=== PATIENT | female | born 1960 | race Caucasian/White ===

== ENCOUNTER → 2019-12-04 07:52 | Outpatient (CLI) | payer BC, SELFPAY ==
[2019-10-27 08:46] VITALS: BMI 27.6
--- NOTE | 2019-12-04 07:55 | RAD_ITS ---
STUDY: X-RAY CHEST REASON FOR EXAM: Female, 59 years old. Left breast CA with left mastectomy and chemo 2 1/2 years ago -- non productive cough since chemo TECHNIQUE: PA and lateral views of the chest. COMPARISON: Comparison is made with prior study dated March 11, 2017. FINDINGS: There now is evidence of a 6.3 cm x 6.5 cm well-defined rounded mass in the right lower lobe. A neoplastic process should be ruled out. There is no demonstrated pleural abnormality. Normal size heart. Normal mediastinum and don. Normal visualized pulmonary arteries. Normal visualized aortic arch and descending thoracic aorta. There are diffuse degenerative changes of the visualized thoracic spine. Normal visualized ribs, clavicles, and shoulders. There is no demonstrated abnormality of the visualized soft tissue structures of the upper abdomen. RAD/Chest PA and Lateral IMPRESSION: There is a new 6.3 cm x 6.5 cm well-defined rounded mass in the right lower lobe. A neoplastic process should be ruled out. Correlation with a CT scan is recommended. Electronically Signed: Chuy Crespo, at 8:53 EST , Service support ,
== END ==
PROVIDERS: Family Provider Family Medicine; PCP Family Medicine; Referring Provider Nurse Practitioner; Visit Provider Nurse Practitioner
DX: R05 Cough (principal); R91.8 Other nonspecific abnormal finding of lung field; Z90.12 Acquired absence of left breast and nipple; Z85.3 Personal history of malignant neoplasm of breast
CPT/HCPCS: 71046

== ENCOUNTER → 2019-12-06 07:41 | Outpatient (CLI) | payer BC, SELFPAY ==
[2019-10-27 08:46] VITALS: BMI 27.6
--- NOTE | 2019-12-06 07:43 | CT_ITS ---
STUDY: CT CHEST WITH CONTRAST REASON FOR EXAM: Female, 59 years old. LEFT BREAST CANCER FOLLOW-UP, COUGH X 2 YRS, HX LEFT BREAST CANCER W/ MASTECTOMY RADIATION DOSAGE (If Supplied By Facility): CTDIvol = ( 10.44 ) mGy, DLP = ( 782.29 ) mGycm TECHNIQUE: Transaxial imaging was performed following intravenous administration of Oral and amp; IV Readi-CAT and amp; 100mL Isovue-300. Multiplanar coronal and sagittal images were reformatted. Individualized dose optimization techniques were used for this CT. COMPARISON: Comparison made with prior chest radiograph dated December 04, 2019. FINDINGS: The patient is status post left mastectomy. Surgical clips are seen in the left axillary region. Small bilateral axillary lymph nodes. There is a 5.4 cm x 5.8 cm x 6 cm mass in the right lower lobe. Mild degree of increased markings are seen along its inferior and lateral margins. A neoplastic process should be ruled out. The left lung is clear. There is no demonstrated pleural abnormality. Normal heart and pericardium. Normal mediastinum. Normal hilar regions. Normal enhanced pulmonary arteries. Normal aorta arch and descending thoracic aorta. There are multi-level degenerative changes of the thoracic spine. Small hiatal hernia. CT/Chest WITH Contrast IMPRESSION: 5.4 cm x 5.8 cm x 6 cm mass in the right lower lobe. A neoplastic process should be ruled out. Electronically Signed: Chuy Crespo, at 9:57 EST , Service support ,
--- NOTE | 2019-12-06 07:43 | CT_ITS ---
STUDY: CT ABDOMEN AND PELVIS WITH CONTRAST REASON FOR EXAM: Female, 59 years old. BREAST CANCER FOLLOW UP, HX LEFT BREAST CANCER W/ LEFT MASTECTOMY RADIATION DOSAGE (If Supplied By Facility): CTDIvol = ( 10.44 ) mGy, DLP = ( 782.29 ) mGycm TECHNIQUE: Transaxial images were obtained from the dome of the diaphragm to the symphysis pubis without oral contrast. Oral and amp; IV Readi-CAT and amp; 100mL Isovue-300 was administered. Sagittal and coronal images were reconstructed. Individualized dose optimization techniques were used for this CT. COMPARISON: None. FINDINGS: There is a 5 cm x 4.8 cm x 6 cm mass in the right lower lobe with increased markings at the right lung base suggestive of atelectasis. The visualized portions of the heart are within normal limits. Normal liver. Normal gallbladder and extrahepatic biliary system. Normal spleen. Normal pancreas. Normal bilateral adrenal glands. Normal right kidney. Normal left kidney. There is a small hiatal hernia. Normal small intestine. Normal colon. The appendix is visualized and appears normal. Normal abdominal aorta. Normal inferior vena cava. Normal retroperitoneum. Normal urinary bladder. There is a small umbilical hernia containing fat. Normal osseous structures. CT/Abdomen/Pelvis WITH Contrast IMPRESSION: Right lower lobe mass. Electronically Signed: Chuy Crespo, at 9:59 EST , Service support ,
[2019-12-06 07:55] LABS: CREATININE FINGERSTICK 0.8 mg/dL (0.55-1.02)
== END ==
PROVIDERS: Family Provider Family Medicine; PCP Family Medicine; Referring Provider Internal Medicine Hematology & Oncology; Visit Provider Internal Medicine Hematology & Oncology
DX: C50.512 Malignant neoplasm of lower-outer quadrant of left female breast (principal); Z17.0 Estrogen receptor positive status [ER+]; R91.8 Other nonspecific abnormal finding of lung field; R05 Cough
CPT/HCPCS: 71260; 74177; Q9967

== ENCOUNTER → 2019-12-11 07:32 | Outpatient (CLI) | payer BC, SELFPAY ==
[2019-10-27 08:46] VITALS: BMI 27.6
--- NOTE | 2019-12-11 07:33 | NM_ITS ---
CLINICAL: 59-year-old female with reported history of primary breast carcinoma. WHOLE BODY 99m Tc MDP RADIONUCLIDE BONE SCINTIGRAPHY COMPARISON: CT of the chest, abdomen and pelvis reports 12/06/2019 FINDINGS: Following the intravenous administration of approximately 25.0 mCi of 99m Tc MDP, whole body bone images reveal: 1. Increased radiopharmaceutical concentration is identified in the mid cervical spine posteriorly on the left and right, acromioclavicular compartment of the right shoulder, sternoclavicular compartments of both shoulders, bilateral wrists articulations, both knees, the right ankle. 2. The remaining skeletal structures are scintigraphically unremarkable with normal-appearing renal images and urinary bladder activity identified. NM/Bone Scan Whole Body IMPRESSION: 1. The increase in radiopharmaceutical concentration identified in the cervical spine, right and left shoulders, knees bilaterally and right ankle is commensurate with degenerative arthritis. 2. There is no definitive typical scintigraphic evidence of skeletal metastatic disease on the current examination. Electronically Signed: Etienne Su DO at 23:08 EST Tel , Service support ,
== END ==
PROVIDERS: Family Provider Family Medicine; PCP Family Medicine; Referring Provider Internal Medicine Hematology & Oncology; Visit Provider Internal Medicine Hematology & Oncology
DX: C50.512 Malignant neoplasm of lower-outer quadrant of left female breast (principal); Z17.0 Estrogen receptor positive status [ER+]; R91.8 Other nonspecific abnormal finding of lung field; R05 Cough
CPT/HCPCS: 78306

== ENCOUNTER → 2019-12-12 08:29 | Outpatient (CLI) | payer BC, SELFPAY ==
[2019-10-27 08:46] VITALS: BMI 27.6
[2019-12-12] VITALS (11 sets, daily range): BP systolic 102–137; BP diastolic 51–77; PULSE 66–82; RESP 12–18; TEMP 36.7; O2SAT 16–99; BMI 25.4
--- NOTE | 2019-12-12 | ASPIGT_PTH ---
PATIENT: ERICK TELLO LOC: CT U#:[id number] AGE/SX: 64/F ROOM: RE12/12/[address]: Dr. Shaji Almonte DO : 1960 BED: DIS: SPEC #: [id number] RECD: 12/12/19 13:13 STATUS: ZEE RELiborio #: [id number] JAYCE: 12/12/19 00:[address]: Shaji Almonte DEPT: SURGICAL PATHOLOGY RECD BY: Dillon Mcnair ENTERED: 12/12/19 13:13 SP TYPE: ASP RAD OTHR DR: Dr. Lawrence Ramirez MD Tissues: Lung, NOS Procedures: FNA Specimen Adequacy Special Stain Group II Surgery Specimen Level IV Imprint (control) HEADER OPERATION: CT-guided right lung mass biopsy PRE-OP DIAGNOSIS: RLL mass TISSUE SUBMITTED: Right lung mass, CT-guided core biopsy MICROSCOPIC DIAGNOSIS Right lower lobe lung mass, CT-guided needle core biopsy: Positive for malignant cells, non-small cell carcinoma with squamoid features. See comment. AM:zak 12/13/19 COMMENT The specimen is evaluated at the time of biopsy by Dr. Paredes. Immediate Evaluation = Malignant cells present. Extensive necrosis is also noted. Immunohistochemistry ([id number]) supports the above diagnosis and is consistent with patients history of metaplastic breast carcinoma. Extensive tumor necrosis is identified. Reference is made to the patient's left breast, ultrasound-guided needle core biopsy ([id number]) in which invasive, nuclear grade 3, ductal carcinoma was identified. 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 This case was discussed with Dr. Almonte 12/15/[address] Muller. Case has been reviewed in consultation with Dr. Paredes who concurs with the above diagnosis. IDC:SJ MICROSCOPIC DESCRIPTION Slides are reviewed. GROSS DESCRIPTION Received in fixative is one container labeled with the patient's name and designated right lung, CT-guided core biopsy. The specimen consists of multiple irregular fragments of ruiz soft tissue that in aggregate measure 1 x 0.1 x <0.1 cm. The specimen is totally submitted in one cassette. Four touch imprints are prepared at the time of core biopsy. / SJ:rg 12/12/19 TC:0 [facility]: [id number], [id number] ADDENDUM ADDENDUM ADDENDUM ADDENDUM ADDENDUM ADDENDUM ADDENDUM 02/05/2020 09:50 ADDENDUM 02/05/2020 09:50 ADDENDUM 02/05/2020 09:50 ADDENDUM 02/05/2020 09:50 ADDENDUM 02/05/2020 09:50 PD-L1 (KEYTRUDA) IMMUNOHISTOCHEMISTRY ANALYSIS FROM [facility] INTERPRETATION: No expression Tumor proportion score: <1% Please see complete report in e-chart or EMR for complete details
--- NOTE | 2019-12-12 | IMM_PTH ---
PATIENT: ERICK TELLO LOC: CT U#:[id number] AGE/SX: 64/F ROOM: RE12/12/[address]: Dr. Shaji Almonte DO : 1960 BED: DIS: SPEC #: [id number] RECD: 12/13/19 15:14 STATUS: SOUStacie REQ #: [id number] JAYCE: 12/12/19 00:[address]: Shaji Almonte DEPT: IMMUNOHISTOCHEMISTRY RECD BY: Lisa Borjas ENTERED: 12/13/19 15:16 SP TYPE: IMMUNO OTHR DR: Dr. Lawrence Ramirez MD Tissues: Lung, NOS Procedures: Synapto (add) RCC (add) Thyroglobulin (add) MSH2 (add) MLH-1 (add) MSH6 (add) Anti-PMS2 (add) NAPSIN A (add) CA-125 (add) CD56 (add) CHROMO (add) CK14 (add) CK20 (add) CK5-6 (add) CK7 (add) CK8 (add) GONZALEZ-2 (add) HER2 KRISTIE (add) KI-67 (add) MAMM (add) P53 (add) WV (add) TTF1 (add) Pankeratin (add) GATA3 (add) P40 (add) ER (initial) NSE (add) S-100 (add) PHYSICIAN & INSTITUTION [place] [id number] SPECIMEN INFORMATION: Tissue Source: Right lower lobe lung mass Clinical Info: Right lower lobe lung mass Specimen Number: [id number] CPT code: 68328, 68624 x28 METHODOLOGY: Deparaffinized sections of prefer/formalin-fixed tissue or PAP/DQ stained slides are incubated with monoclonal/polyclonal antibodies/oligonucleotide probes. Localization is made via biotin free immunoperoxidase method. Appropriate controls are performed and reacted as expected. Results on target cell population are indicated in the following table: RESULTS: ANTIBODY / CLONE RESULT ER (6F11) negative WV (1E2) positive, dim, focal AE1-3 (AE1/AE3/PCK26) positive CK7 (OV-TL12/30) positive CK8 (18ygkpM34) positive CK20 (KS20.8) negative GONZALEZ-2 (SP21) negative S-100 (4C4.9) negative CD56 (123C3.D5) negative Chromo (LK2H10) negative Synapto (polyclonal) negative NSE Neuron Specific Enolase negative TTF-1 (8G7G3/1) negative Napsin A (Rabbit Polyclonal) negative RCC (PN-15) negative Thyro (2H11+6E1) negative CK5-6 (D5 & 1684) positive CK14 (LL002) positive P40 (BC28) positive, focal CA125 (OC125) negative P53 (DO-7) positive Ki-67 (30-9) positive, high GATA3 (L50-823) negative Mammaglobin (31A5) negative These tests were developed and their performance characteristics determined by [facility]. They may not have been cleared or approved by the U.S. Food and Drug Administration. The FDA has determined that such clearance or approval is not necessary. The above immunohistochemical/dualISH markers are ordered and reviewed by the Pathologist. INTERPRETATION: Right lower lobe lung mass, CT-guided biopsy: Metastatic non-small carcinoma with squamoid features. 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 Clinical correlation is necessary. Case was discussed with Dr. Almonte on 12/15/[address] Muller. Case has been reviewed in consultation with Dr. Paredes who concurs with the above diagnosis. IDC:SJ ADDENDUM ADDENDUM ADDENDUM ADDENDUM ADDENDUM ADDENDUM ADDENDUM ADDENDUM ADDENDUM ADDENDUM ADDENDUM 01/03/2020 10:31 ADDENDUM 01/03/2020 10:31 ADDENDUM 01/03/2020 10:31 ADDENDUM 01/03/2020 10:31 ADDENDUM 01/03/2020 10:31 ADDENDUM 01/12/2020 12:40 ANTIBODY / CLONE RESULT MLH-1 (M1) positive MSH2 (25D12) positive MSH6 (44) positive PMS2 (UPB0499) positive Result of Microsatellite Instability Study: Negative (no loss of mismatch protein; no microsatellite instability detected). AM:zak 01/03/20 ANTIBODY / CLONE RESULT Her-2neu (CB11) negative (0) The above immunohistochemical/dualISH marker is ordered by Dr. Almonte and reviewed by the pathologist. SJ:zak 01/12/20
--- NOTE | 2019-12-12 08:39 | CT_ITS ---
PROCEDURE: CT GUIDED CORE NEEDLE BIOPSY OF A right lower lobe LUNG LESION INDICATION: Female, 59 years old. RT LUNG BX PHYSICIAN: Dr. Zak Juarez CONSENT: Written informed consent was obtained having explained the risks, benefits and alternatives in detail with the patient who accepted the risks and agreed to proceed. Laboratory review and clinical assessment was performed. CONSCIOUS SEDATION PROTOCOL: The Drugs used were: 2 mg Versed, IV., and 50 mcg Fentanyl, IV. The sedation time was: 22 minutes. Conscious sedation was started at 9:28 AM and terminated at 9:50 AM. The conscious sedation protocol was independently monitored. RADIATION DOSAGE (If Supplied By Facility): CTDIvol = ( 13.5 ) mGy, DLP = ( 182.66 ) mGycm Individualized dose optimization techniques were used for this CT. TECHNIQUE: The patient was placed in the prone position. A noncontrast CT was performed to localize the lesion in the right lower lobe . The skin surface was prepped and draped in a sterile fashion. 1% lidocaine was used for local anesthesia. Using CT guidance, a 20-gauge coaxial biopsy device was advanced to the periphery of the lesion. A total of 5 core specimens were obtained. The specimens were placed in a formalin solution. A post procedure CT demonstrated no adverse sequelae or pneumothorax. The patient tolerated the procedure well without adverse event. A negative biopsy does not exclude malignancy. Further imaging or clinical followup based on patient condition and degree of clinical suspicion for malignancy. Suggest rebiopsy, if biopsy results do not match with clinical scenario. CT/Biopsy/Inj or Needle Placement IMPRESSION: 1. CT directed core needle biopsy of the right lower lobe pulmonary nodule using CT image guidance with image documentation as described. Pathology results are pending. 2. Conscious Sedation protocol utilized with independent monitoring. Electronically Signed: Chuy Crespo, at 10:42 EST , Service support ,
[2019-12-12 08:43] LABS: Platelet Count 256 K/mm3 (150-450)
[2019-12-12 08:53] LABS: International Normalized Ratio 0.9; Prothrombin Time (Protime)PT. 12.2 SECONDS (11.7-14.9)
[2019-12-12] MEDS: 0.9% Saline Lock 10 ML Syringe IV (09:28)
[2019-12-12] MEDS: Midazolam 2 MG/2 ML Syringe IV (09:28)
[2019-12-12] MEDS: fentaNYL 100 MCG/2 ML Ampul IV (09:30)
--- NOTE | 2019-12-12 09:55 | RAD_ITS ---
STUDY: X-RAY CHEST REASON FOR EXAM: Female, 59 years old. POST LUNG BIOPSY TECHNIQUE: AP inspiration expiration views. COMPARISON: Comparison is made with prior study dated December 04, 2019. FINDINGS: This is an immediate post right lung biopsy radiograph. There is no evidence of pneumothorax. RAD/Chest Insp/Exp 2 View IMPRESSION: No evidence of pneumothorax on the immediate post right lung biopsy radiograph. Electronically Signed: Chuy Crespo, at 10:50 EST , Service support ,
--- NOTE | 2019-12-12 11:50 | RAD_ITS ---
STUDY: X-RAY CHEST REASON FOR EXAM: Female, 59 years old. 2 HOUR POST LUNG BX, RIGHT SIDE TECHNIQUE: AP inspiration and expiration views. COMPARISON: Comparison is made with prior examination done earlier in the day. FINDINGS: No evidence of pneumothorax on the 2 hour delayed post right lung biopsy radiograph. Stable right lower lobe mass. RAD/Chest Insp/Exp 2 View IMPRESSION: No evidence of a pneumothorax on the two-hour delayed radiograph. Electronically Signed: Chuy Crespo, at 12:19 EST , Service support ,
== END ==
PROVIDERS: PCP Family Medicine; Referring Provider Internal Medicine Hematology & Oncology; Visit Provider Internal Medicine Hematology & Oncology
DX: C34.31 Malignant neoplasm of lower lobe, right bronchus or lung (principal); C50.512 Malignant neoplasm of lower-outer quadrant of left female breast; Z17.0 Estrogen receptor positive status [ER+]; Z90.12 Acquired absence of left breast and nipple
CPT/HCPCS: 32405; 36415; 71046; 77012; 85049; 85610; 88172; 88305; 88313; 88341; 88342; 99156; 99157; J7040; A4216

== ENCOUNTER → 2019-12-19 06:44 | Outpatient (CLI) | payer BC, SELFPAY ==
[2019-12-12 08:47] VITALS: BMI 25.4
--- NOTE | 2019-12-19 06:52 | MRI_ITS ---
STUDY: MRI BRAIN WITH AND WITHOUT CONTRAST REASON FOR EXAM: Female, 59 years old. Invasive, metastic breast CA recurrence. Staging. No patient complaints TECHNIQUE: Standardized multiplanar fat and water weighted pulse sequences were obtained. Pt received 12ml Dotarem via IV was administered for the contrast portion of the examination. COMPARISON: None. FINDINGS: Normal size of the ventricles and extra-axial spaces for the patient''s age. Normal white matter tracts of the supratentorial brain. There is no evidence for recent intracranial ischemia or other cause of cytotoxic edema on diffusion weighted imaging (DWI). Normal T2* images of the brain without demonstrated susceptibility artifact. There is no demonstrated hemosiderin stain. Normal bilateral basal ganglia. Normal thalami. There is no extra-axial fluid accumulation. Normal flow voids within the major intracranial circulation suggesting patency by spin echo criteria. Normal venous enhancement. There is no enhancing intra-axial or extra-axial abnormality. Normal sella turcica, pituitary gland, infundibular stalk, optic chiasm and hypothalamus. Normal tectal plate and pineal gland. Normal midbrain, suzie and medulla. Normal cerebellum. Normal basal cisterns. Normal bilateral temporal bones. Normal bilateral internal auditory canals. No demonstrated orbital abnormality, within the constraints of a routine brain study. Normal visualized paranasal sinuses. Normal calvarium and skull base. Normal visualized soft tissue structures. Normal visualized upper cervical spine. MRI/Brain W/WO Contrast IMPRESSION: Normal unenhanced and enhanced MRI of the brain. No MR evidence of metastatic disease. Electronically Signed: Etienne Gomez MD at 8:53 EST Tel , Service support ,
== END ==
PROVIDERS: PCP Family Medicine; Referring Provider Internal Medicine Hematology & Oncology; Visit Provider Internal Medicine Hematology & Oncology
DX: C50.512 Malignant neoplasm of lower-outer quadrant of left female breast (principal); Z17.0 Estrogen receptor positive status [ER+]; R91.8 Other nonspecific abnormal finding of lung field
CPT/HCPCS: 70553; A9575

== ENCOUNTER → 2019-12-25 08:57 | Outpatient (CLI) | payer BC, SELFPAY ==
[2019-12-12 08:47] VITALS: BMI 25.4
--- NOTE | 2019-12-25 09:09 | PET_ITS ---
EXAMINATION: FDG PET CT INDICATIONS: A 59-year-old female with history of carcinoma of the breast presenting for restaging examination. COMPARISON EXAMINATION: Whole body bone scintigraphy report dated 12/11/19, CT of the chest report dated 12/06/19, CT of the abdomen and pelvis report dated 12/06/19. INDEX LESION SIZE SUV INTERPRETATION Right lower hemithorax pulmonary parenchyma-right lower lobe, heterogeneous 6.7 cm x 5.9 cm (frame 177) 5.4 Fulfills quantitative criteria for viable neoplasm Left posterior ilium, right mid humeral diaphysis 5.7 Fulfills quantitative criteria for viable osseous neoplasm TECHNIQUE: Following the intravenous administration of 15.74 mCi of F-18 deoxyglucose via the right antecubital fossa, multiplanar image acquisitions of the neck, chest, abdomen and pelvis to level of mid thigh, obtained at one hour post radiopharmaceutical administration contemporaneously interpreted with the current CT of the neck, chest, abdomen and pelvis to level of mid thigh, dated 12/25/19 via coregistration and whole body bone scintigraphy report dated 12/11/19, CT of the chest report dated 12/06/19, CT of the abdomen and pelvis report dated 12/06/19 reveal: SERUM GLUCOSE LEVEL: 87 mg/dl. HEIGHT: 61 inches. WEIGHT: 130 lbs. FINDINGS: 1. Heterogeneous increased glucose metabolism is defined in the right lower posterior lung with a component of central photopenia. The calculated maximum standard uptake value is 5.4. The maximal axial diameter of the corresponding parenchymal density-mass on review of CT of the chest dated 12/25/19 is 6.7 cm (transverse) x 5.9 cm (AP). 2. Focal increased glucose concentration is observed in the left posterior ilium and right mid humeral diaphysis generating a calculated maximum standard uptake value of 5.7. 3. Normal physiologic distribution of the radiopharmaceutical is apparent in the hepatic (2.5) and splenic parenchyma, both renal units, bladder and visualized intestinal tract. There is uniform distribution of the radiopharmaceutical concentration defined in the visualized cerebellar hemispheres and cerebral cortical structures.? Diffuse intestinal tract activity is noted throughout all four quadrants of the abdominal-pelvic retroperitoneum, mesentery consistent with normal physiologic distribution of the radiopharmaceutical. Subtle increased radiopharmaceutical concentration is observed in the right upper anterolateral chest wall-second rib rendering a calculated standard uptake value of 1.7. Quantitative criteria for viable osseous neoplasm are not fulfilled. Facilitated uptake is noted in the ascending and descending thoracic aorta commensurate with activated leukocytes associated with atherosclerotic plaque formation. (Juan frost al, Clinical Nuclear Medicine 29:93, 2004). Pertinent CT findings are as follows. CHEST: The left breast is surgically absent. There are no additional parenchymal densities-nodules defined in the right-left hemithorax demonstrating discernible increased glucose metabolism. Surgical clips are visualized in the left axilla. Right and left axillary soft tissue densities are ametabolic. ABDOMEN AND PELVIS: Colonic diverticulosis is defined. Subcentimeter right and left inguinal soft tissue is non-glucose avid. Cystic change appears evident at the level of the right adnexa without evidence of increased FDG uptake. SKELETAL: Degenerative changes defined in the cervical, thoracic and lumbar spine demonstrate no evidence for glucose hypermetabolism. Diffuse demineralization is demonstrated. PET/PET/CT Tumor Base -Thigh Init IMPRESSION: 1. ABNORMAL EXAMINATION INDICATIVE OF MALIGNANT-IDENTIFIABLE METASTATIC NEOPLASM. 2. Increased glucose concentration observed in the right lower hemithorax pulmonary parenchyma, right lower lobe fulfills quantitative criteria for viable neoplasm. (Chin et al, Annals of Internal Medicine, 138:724, 2003). 3. Facilitated fluorine-labeled glucose uptake noted in the left posterior ilium and right mid humeral diaphysis fulfills quantitative criteria for viable osseous neoplasm. (Margret, Clinical Nuclear Medicine 29:161, 2004). Electronic Signature Etienne Su D.O. Electronically Signed: Etienne Su DO at 8:34 EST Tel , Service support ,
== END ==
PROVIDERS: PCP Family Medicine; Referring Provider Internal Medicine Hematology & Oncology; Visit Provider Internal Medicine Hematology & Oncology
DX: C50.512 Malignant neoplasm of lower-outer quadrant of left female breast (principal); Z17.0 Estrogen receptor positive status [ER+]; R91.8 Other nonspecific abnormal finding of lung field
CPT/HCPCS: 78815; A9552

== ENCOUNTER → 2020-03-11 12:46 | Outpatient (CLI) | payer BC, SELFPAY ==
[2019-12-12 08:47] VITALS: BMI 25.4
--- NOTE | 2020-03-11 12:49 | CT_ITS ---
STUDY: CT CHEST WITH CONTRAST REASON FOR EXAM: Female, 59 years old. CHEMO CHECK, RT LUNG MASS, HX-LT BREAST CA WITH LT MASTECTOMY, CHEMO AND RAD TX, LAST CHEMO 1.5 WKS AGO, PARTIAL THYROIDECTOMY FOR GOITER RADIATION DOSAGE (If Supplied By Facility): CTDIvol = ( 7.27 ) mGy, DLP = ( 243.77 ) mGycm TECHNIQUE: Transaxial imaging was performed following intravenous administration of IV 100mL Isovue-300. Multiplanar coronal and sagittal images were reformatted. Individualized dose optimization techniques were used for this CT. COMPARISON: Comparison is made with prior examination dated December 06, 2019. FINDINGS: The patient is status post left thyroidectomy. The patient is status post left mastectomy with left breast reconstruction and prosthesis. There is evidence of a 4.6 cm x 5.3 cm x 5.4 cm mass in the anterior aspect of the right lower lobe abutting the right major fissure anteriorly. This has decreased slightly in size as compared to prior study. There is no demonstrated pleural abnormality. Normal heart and pericardium. Normal mediastinum. Normal hilar regions. Normal enhanced pulmonary arteries. Normal aorta arch and descending thoracic aorta. There are mild degenerative changes of the thoracic spine. There is no demonstrated abnormality of the visualized upper abdomen. CT/Chest WITH Contrast IMPRESSION: Since prior study, there has been slight decrease in size of the right lower lobe pulmonary mass. Status post left mastectomy with left breast prosthesis reconstruction. Electronically Signed: Chuy Crespo, at 13:59 EDT , Service support ,
[2020-03-11 13:20] LABS: CREATININE FINGERSTICK 0.6 mg/dL (0.55-1.02); EGFR FINGERSTICK > 60.0000 mL/min (>60)
== END ==
PROVIDERS: PCP Family Medicine; Referring Provider Internal Medicine Hematology & Oncology; Visit Provider Internal Medicine Hematology & Oncology
DX: C50.512 Malignant neoplasm of lower-outer quadrant of left female breast (principal); Z17.0 Estrogen receptor positive status [ER+]; C78.01 Secondary malignant neoplasm of right lung; C79.51 Secondary malignant neoplasm of bone
CPT/HCPCS: 71260; Q9967

== ENCOUNTER 2020-05-17 10:53 | Emergency (ER) | payer BC, SELFPAY ==
[2019-12-12 08:47] VITALS: BMI 25.4
[2020-05-17 10:54] VITALS: BP 123/68; PULSE 94; PULSE 95; RESP 17; TEMP 36.6; O2SAT 95; O2SAT 96; BMI 26.4
--- NOTE | 2020-05-17 11:25 | RAD_ITS ---
STUDY: X-RAY - RIGHT KNEE REASON FOR EXAM: Female, 59 years old. RIGHT KNEE PAIN. TECHNIQUE: 4 view(s) of the knee. COMPARISON: None. FINDINGS: Normal visualized distal femur. Normal visualized proximal tibia and fibula. Normal proximal tibiofibular articulation. Normal medial femorotibial compartment. Normal lateral femorotibial compartment. Normal patellofemoral articulation. The soft tissue structures are unremarkable. RAD/Knee 4 or More Views IMPRESSION: Normal x-ray examination of the knee. Electronically Signed: Dayday Agosto MD at 11:44 EDT , Service support ,
--- NOTE | 2020-05-17 11:53 | VDLE_ITS ---
Reason For Study: pain RIGHT GSV is normal. CFV is compressible, spontaneous, phasic, competent and demonstrates normal augmentation. FV is compressible, spontaneous, phasic, competent and demonstrates normal augmentation. POP V is compressible, spontaneous, phasic, competent and demonstrates normal augmentation. T/P Trunk is compressible. PTV is compressible. RT PerV is compressible. Procedure Exam performed portable in ED. The exam was abbreviated due to the COVID 19 protocol. The exam was diagnostic. A preliminary report was called and/or faxed to Dr. Whitley. Interpretation Summary There is no evidence of right lower extremity deep vein thrombosis. Right great saphenous vein appears patent and compressible segmentally. Abreviated Covid-19 protocol Ordering Physician: Shaji Whitley Performed By: Donaldo Mcduffie RVT
--- NOTE | 2020-05-17 12:15 | ED.VIS.GEN ---
History of Present Illness Chief Complaint: Lower Extremity Injury Narrative: Presents with right knee pain, this is anterior and some posterior pain after a car ride she tells me she sat in an awkward position where she put her left foot over her right knee for prolonged period of time. She has minimal pain when she is laying down her most of her pain is when she stands on her knee. She has no calf pain no lower extremity edema she has no fever or chills. She is being treated with chemotherapy for metastatic breast cancer. She has no shortness of breath or chest pain. Past Medical History - Allergies and Home Meds Allergies/Adverse Reactions: Allergies No Known Allergies Allergy (Verified 05/17/20 10:53) Primary Care Physician: Lawrence Ramirez MD [Primary Care Provider] - Past Medical History: - - Metastatic breast cancer as above Smoking Status: Former smoker Review of Systems All systems negative except as indicated General: Denies: Chills, Fever Cardiovascular: Denies: Chest pain Respiratory: Denies: Dyspnea, Cough Gastrointestinal: Denies: Abdominal pain Musculoskeletal: Reports: - - Right knee pain as above Skin: Denies: Rash, Wounds Neurological: Denies: Headache, Weakness Hematologic: Denies: Easy bruising Physical Exam Vital Signs/Narrative: Vital Signs Temp Pulse Resp BP Pulse Ox 05/17/20 10:54 97.8 F 95 17 123/68 H 95 General: - - Patient is quite comfortable in bed she does not appear in any distress Head: Normocephalic Eyes: Perrl ENT: Moist mucous membranes Cardiovascular: Regular rate, Regular rhythm Respiratory: No distress, CTA bilaterally, Chest nontender Abdomen: Soft, Nontender Back: Nontender Extremities: - - Tenderness over the right knee region it is anterior there is a slight effusion clinically, there is no laxity on anterior posterior medial or lateral stressors. Exam is somewhat difficult since the patient does have quite a bit of pain when I manipulate the knee. She has a normal extensor mechanism. She has very slight popliteal tenderness. She has no calf pain or lower extremity edema no erythema, calor or signs of infection. Skin: Normal color, No rash Neurological: Normal Strength, Normal Sensation Diagnostic/Tx/Re-eval Right knee x-ray reviewed by me shows normal alignment. There is no fracture. No obvious effusion - Medical Decision Making Patient has an unremarkable x-ray on physical exam she does have a slight effusion however I cannot appreciated on the x-ray, I also did a DVT study which was negative, she has normal vitals she appears well she has no other systemic complaints and her complaint today is localized to the knee no further studies are needed I will discharge her with analgesia, she likely has a knee strain or sprain. If this continues she will need an MRI. ED Disposition - Plan for ED Patient: Disposition: Home or Assisted Living Diagnosis: Knee pain Instructions: ED Knee Pain [facility]O, ED Sprain Knee Prescriptions: Hydrocodone Bitart/Apap 5-325 [[place] 5MG-325MG] 1 tablet PO Q4H PRN PRN 2 Days #10 tablet PRN Reason: Pain Transmission Status: Received by [facility] Referrals: You Still DO [STAFF PHYSICIAN] - 3-5 Days
[2020-05-17 13:09] VITALS: BP 124/79; PULSE 68; RESP 15; O2SAT 99
== END 2020-05-17 13:10 | disposition home or self-care (01) ==
PROVIDERS: Emergency Provider Emergency Medicine; PCP Family Medicine
DX: M25.561 Pain in right knee (principal); C50.919 Malignant neoplasm of unspecified site of unspecified female breast; C79.9 Secondary malignant neoplasm of unspecified site; Z87.891 Personal history of nicotine dependence
CPT/HCPCS: 73564; 93971; 99283

== ENCOUNTER → 2020-06-03 16:36 | Outpatient (CLI) | payer BC, SELFPAY ==
[2019-12-12 08:47] VITALS: BMI 25.4
[2020-05-17 10:54] VITALS: BMI 26.4
--- NOTE | 2020-06-03 16:39 | CT_ITS ---
STUDY: CT CHEST WITH CONTRAST REASON FOR EXAM: Female, 59 years old. BREAST CA RADIATION DOSAGE (If Supplied By Facility): CTDIvol = ( 10.12 ) mGy, DLP = ( 322.77 ) mGycm TECHNIQUE: Transaxial imaging was performed following intravenous administration of Oral and amp; IV READII-CAT and amp; 100ML ISOVUE 300. Multiplanar coronal and sagittal images were reformatted. Individualized dose optimization techniques were used for this CT. COMPARISON: Comparison is made with prior study dated March 11, 2020. FINDINGS: The patient is status post left mastectomy with breast reconstruction. The patient also status post left thyroidectomy. Persistent 4.5 cm x 4.3 cm mass in the anterior aspect of the right lower lobe abutting the right major fissure anteriorly. This has decreased slightly as compared to prior study. There is no demonstrated pleural abnormality. Normal heart and pericardium. Normal mediastinum. Normal hilar regions. Normal enhanced pulmonary arteries. Normal aorta arch and descending thoracic aorta. There are mild degenerative changes of the thoracic spine. Diffuse fatty infiltration of the liver. CT/Chest WITH Contrast IMPRESSION: Persistent soft tissue mass in the anterior aspect of the right lower lobe abutting the mid right major fissure as described. The mass presently measures 4.5 cm by 4.3 cm. Electronically Signed: Chuy Crespo, at 11:10 EDT , Service support ,
--- NOTE | 2020-06-03 16:39 | CT_ITS ---
STUDY: CT ABDOMEN AND PELVIS WITH CONTRAST REASON FOR EXAM: Female, 59 years old. BREAST CA RADIATION DOSAGE (If Supplied By Facility): CTDIvol = ( 11.46 ) mGy, DLP = ( 518.90 ) mGycm TECHNIQUE: Transaxial images were obtained from the dome of the diaphragm to the symphysis pubis with oral contrast. Oral and amp; IV READII-CAT and amp; 100ML ISOVUE 300 was administered. Sagittal and coronal images were reconstructed. Individualized dose optimization techniques were used for this CT. COMPARISON: Comparison is made with prior study dated December 06, 2019. FINDINGS: 4.7 cm x 4.5 cm mass in the right lower lobe. Status post left mastectomy with left breast reconstruction. The visualized portions of the heart are within normal limits. There is decreased attenuation of the liver consistent with steatosis. Normal gallbladder and extrahepatic biliary system. Normal spleen. Normal pancreas. Normal bilateral adrenal glands. Normal right kidney. Normal left kidney. Normal visualized stomach. Normal small intestine. Normal colon. The appendix is visualized and appears normal. Normal abdominal aorta. Normal inferior vena cava. Normal retroperitoneum. Normal urinary bladder. There is a small umbilical hernia containing fat. Normal osseous structures. CT/Abdomen/Pelvis WITH Contrast IMPRESSION: Stable examination. Electronically Signed: Chuy Crespo, at 13:00 EDT , Service support ,
[2020-06-03 17:31] LABS: CREATININE FINGERSTICK 0.7 mg/dL (0.55-1.02); EGFR FINGERSTICK > 60.0000 mL/min (>60)
== END ==
PROVIDERS: PCP Family Medicine; Referring Provider Internal Medicine Hematology & Oncology; Visit Provider Internal Medicine Hematology & Oncology
DX: C50.512 Malignant neoplasm of lower-outer quadrant of left female breast (principal); Z17.1 Estrogen receptor negative status [ER-]; C78.01 Secondary malignant neoplasm of right lung; C79.51 Secondary malignant neoplasm of bone
CPT/HCPCS: 71260; 74177; Q9967

== ENCOUNTER → 2020-06-13 13:00 | Outpatient (CLI) | payer BC, SELFPAY ==
[2020-05-17 10:54] VITALS: BMI 26.4
--- NOTE | 2020-06-14 05:39 | SPIR ---
Spirometry PFT Testing Spirometry PFT Testing: COMPLETE PULMONARY FUNCTION TEST INTERPRETATION Brief HPI: Patient is a 59 year old female, currently under the care of Dr. Almonte, who presents to [facility] for complete pulmonary function tests secondary to diagnosis of cough. Respiratory therapist reports good effort and reproducible results. Interpretation: Forced expiration spirometry shows no large airways obstructive ventilatory defect with an FEV1 of 101% predicted. There is no significant bronchodilator response by strict ATS criteria. Spirograms are of good quality and plateau slowly, indicating slowly emptying areas of the lungs. The respiratory flow volume loop shows decreased expiratory flow rates at high lung volumes consistent with small airways obstruction. No previous pulmonary function tests were available for review. Impression: Normal spirometry with some stigmata of possible small airways disease. Could consider bronchoprovocation study if asthma is a consideration.
== END ==
PROVIDERS: PCP Family Medicine; Referring Provider Internal Medicine Hematology & Oncology; Visit Provider Internal Medicine Hematology & Oncology
DX: R06.2 Wheezing (principal); R05 Cough; C50.512 Malignant neoplasm of lower-outer quadrant of left female breast; Z17.0 Estrogen receptor positive status [ER+]; C78.01 Secondary malignant neoplasm of right lung
CPT/HCPCS: 94060

== ENCOUNTER → 2020-07-01 06:57 | Outpatient (CLI) | payer BC, SELFPAY ==
[2020-06-24 10:21] VITALS: BMI 26.2
--- NOTE | 2020-07-02 14:48 | PFT ---
INTRODUCTION: The patient is a 59-year-old female that presents for pulmonary function studies secondary to a diagnosis of chronic cough. Respiratory therapy reports good patient effort. Bronchodilators were used during testing. INTERPRETATION: Forced expiration spirometry demonstrates no evidence of a large airways obstructive ventilatory defect. There was no significant response to aerosolized bronchodilators. Spirograms are of good quality and plateau normally. Body plethysmography was performed and reveals lung volumes to be within normal limits. Diffusing capacity by single breath CO is also within normal limits. IMPRESSION: Grossly normal pulmonary function studies.
== END ==
PROVIDERS: PCP Family Medicine; Referring Provider Internal Medicine Critical Care Medicine; Visit Provider Internal Medicine Critical Care Medicine
DX: R05 Cough (principal)
CPT/HCPCS: 94060; 94726; 94729

== ENCOUNTER → 2020-08-06 | Outpatient (CLI) | payer BC, SELFPAY ==
[2020-06-24 10:21] VITALS: BMI 26.2
== END | disposition home or self-care (01) ==
LOC: LABSPEC 13:06
PROVIDERS: Referring Provider Family Medicine; Visit Provider Family Medicine
DX: Z03.818 Encounter for observation for suspected exposure to other biological agents ruled out (principal)
CPT/HCPCS: 87635; U0003

== ENCOUNTER → 2020-08-08 | Outpatient (CLI) | payer BC, SELFPAY ==
[2020-06-24 10:21] VITALS: BMI 26.2
== END | disposition home or self-care (01) ==
LOC: LABSPEC 08-09 09:17
PROVIDERS: PCP Family Medicine; Visit Provider Family Medicine
DX: Z03.818 Encounter for observation for suspected exposure to other biological agents ruled out (principal)
CPT/HCPCS: 87635; U0003

== ENCOUNTER → 2020-08-20 08:15 | Outpatient (CLI) | payer BC, SELFPAY ==
[2020-06-24 10:21] VITALS: BMI 26.2
--- NOTE | 2020-08-20 08:25 | CT_ITS ---
STUDY: CT CHEST WITH CONTRAST REASON FOR EXAM: Female, 59 years old. INVASIVE BREAST CA. METS TO LUNG AND BONE. BEEN GETTING CHEMO 3 WEEKS ON 1 WEEK OFF SINCE DEC RADIATION DOSAGE (If Supplied By Facility): CTDIvol = ( 8.21 ) mGy, DLP = ( 222.48 ) mGycm TECHNIQUE: Transaxial imaging was performed following intravenous administration of IV 100mL Isovue-300. Multiplanar coronal and sagittal images were reformatted. Individualized dose optimization techniques were used for this CT. COMPARISON: Comparison is made with prior examination dated 06/03/2020. FINDINGS: The patient is status post resection of the left lobe of the thyroid. The patient is status post left mastectomy with breast reconstruction.. Since prior examination, the soft tissue mass in the right lower lobe abutting the right major fissure as increased in size. It presently measures 6.3 cm x 5.3 cm x 5.5 cm. There is evidence of a small right pleural effusion with right basilar atelectasis. There is a new 1.2 cm x 1.3 cm nodule in the posterior aspect of the left lower lobe. Normal heart and pericardium. Normal mediastinum. Normal hilar regions. Normal enhanced pulmonary arteries. Normal aorta arch and descending thoracic aorta. There is demineralization of the thoracic spine. Small hiatal hernia. CT/Chest WITH Contrast IMPRESSION: Since prior study, there has been a new right pleural effusion with progressive increase in size of the right lower lobe mass as described. New nodular density is seen in the posterolateral aspect of the right lower lobe. Electronically Signed: Chuy Crespo, at 9:34 EDT , Service support ,
== END ==
PROVIDERS: PCP Family Medicine; Referring Provider Internal Medicine Hematology & Oncology; Visit Provider Internal Medicine Hematology & Oncology
DX: C50.512 Malignant neoplasm of lower-outer quadrant of left female breast (principal); Z17.0 Estrogen receptor positive status [ER+]; C78.01 Secondary malignant neoplasm of right lung; C79.51 Secondary malignant neoplasm of bone
CPT/HCPCS: 71260; Q9967

== ENCOUNTER → 2020-08-22 | Outpatient (CLI) | payer BC, SELFPAY ==
[2020-06-24 10:21] VITALS: BMI 26.2
== END | disposition home or self-care (01) ==
LOC: LABSPEC 13:24
PROVIDERS: Referring Provider Family Medicine; Visit Provider Family Medicine
DX: Z11.59 Encounter for screening for other viral diseases (principal)
CPT/HCPCS: 87635; U0003

== ENCOUNTER 2020-09-17 20:29 | Emergency (ER) | payer BC, SELFPAY ==
[2020-06-24 10:21] VITALS: BMI 26.2
[2020-09-17 20:30] VITALS: BP 123/73; PULSE 112; RESP 18; TEMP 39.3; O2SAT 95; BMI 26.2
--- NOTE | 2020-09-17 20:56 | ED.VIS.GEN ---
History of Present Illness Chief Complaint: Fever Informant: Patient, Family Narrative: Patient is a 59-year-old female with a past medical history of breast cancer with metastasis to her lung. She is currently undergoing chemotherapy. She has gone a total of 2 sessions, the last on the of this month. She does have some variable temperatures after receiving chemo but today it has been consistently elevated. She checked it and it was 102. Her oncologist told her to come to the emergency department to get checked out. She does have baseline short of breath but does feel slightly worse than normal. She does have a chronic cough due to the cancer irritating her bronchus that is not worse than normal. She denies any sputum production. No nausea/vomiting or diarrhea. She denies any urinary symptoms. She does not know of any known sick exposures. Her does work in the [employer]. He has not had any symptoms. Past Medical History - Allergies and Home Meds Allergies/Adverse Reactions: Allergies No Known Allergies Allergy (Verified 06/24/20 11:10) Primary Care Physician: Shaij Almonte DO [Primary Care Provider] - Prior records reviewed: Yes Past Medical History: None - Breast cancer with mets to lungs Surgical History: - - Mastectomy Smoking Status: Former smoker Review of Systems All systems negative except as indicated General: Reports: Chills, Fever. Denies: Sweats Eyes: Denies: Visual changes - bilaterally, Diplopia ENT: Denies: Rhinorrhea, Sore throat Cardiovascular: Denies: Chest pain, Palpitations Respiratory: Reports: Dyspnea, Cough. Denies: Sputum Gastrointestinal: Denies: Abdominal pain, Nausea, Vomiting, Diarrhea Genitourinary: Denies: Dysuria, Hematuria, Frequency Musculoskeletal: Denies: Back pain, Extremity Pain Skin: Denies: Rash, Wounds Neurological: Denies: Headache, Weakness, Numbness Physical Exam Vital Signs/Narrative: Vital Signs Temp Pulse Resp BP Pulse Ox 09/17/20 20:30 102.7 F H 112 H 18 123/73 H 95 Inital Vital Signs reviewed: Yes General: Well nourished, Well developed, No Acute Distress Head: Normocephalic, Atraumatic Eyes: Perrl, EOMI ENT: Moist mucous membranes, No rhinorrhea Neck: Supple, Nontender Cardiovascular: Regular rate, Regular rhythm, No murmurs Respiratory: No distress, Chest nontender, Rhonchi - Left lung base Abdomen: Soft, Nontender, Nondistended, Normal bowel sounds Back: Nontender, Normal Inspection Extremities: Nontender, No edema. Negative for: Calf Tenderness Skin: Normal color, No rash Neurological: Alert, Oriented x3, Normal Strength, Normal Sensation Psychological: Normal affect, Normal Mood Diagnostic/Tx/Re-eval - Medical Decision Making Patient presents to the emergency department for fever. She is on chemotherapy for history of breast cancer with metastasis. Upon arrival to the emerge department her temperature is 102.7. She is mildly tachycardic. She is not hypotensive. Satting well on room air. She does not appear in any acute distress. We will treat her as a neutropenic fever and start work-up with blood cultures, lactic, chest x-ray and urinalysis. Rhinovirus swab being obtained as well. Her last coronavirus test was 1 week ago. Low concern for PE given elevated temperature, not hypoxic. Pulse did come down with temperature and IV fluids. Patient's x-ray did not show any obvious evidence of consolidation. There is the mass present in the right lower lobe. Patient is not neutropenic. Her white blood cell count is mildly elevated. Her liver enzymes are mildly elevated. Lactic acid well within normal limits. Urine did not show any evidence of infection. Physical exam is benign. She is feeling better after Tylenol and IV fluids. She was given a first dose of cefepime. I did call and speak to the on-call oncologist, Dr. Pierson who is on-call for her oncologist. He felt that she could be treated as an outpatient or inpatient depending on how her symptoms are. Patient does not want to be admitted given the coronavirus pandemic and possible exposures in the hospital. I believe that this is an acceptable plan. We will place her on Levaquin per his recommendation. She actually has an appointment with them tomorrow for follow-up. At this time will discharge home in stable condition. Warning signs and symptoms for which to return to the ED are reviewed with them. They understand and are agreeable this plan. Patient discharged home in stable condition. All questions answered. ED Disposition - Plan for ED Patient: Disposition: Home or Assisted Living Diagnosis: Fever, Dyspnea, Cough Instructions: ED Fever Control (Adult), ED Dyspnea Prescriptions: Levofloxacin [Levaquin] 750 mg PO DAILY 7 Days #7 tab Prescription Printed Referrals: Shaji Almonte DO [Primary Care Provider] -
[2020-09-17 21:15] VITALS: BP 123/73; PULSE 112; RESP 18; TEMP 39.3; O2SAT 95
--- NOTE | 2020-09-17 21:22 | RAD_ITS ---
STUDY: X-RAY CHEST REASON FOR EXAM: Female, 59 years old. FEVER AND SOB. PT IS RECEIVING CHEMOTHERAPY. TECHNIQUE: Single frontal view of the chest. COMPARISON: 01/12/20. FINDINGS: Surgical clips are seen at the thoracic inlet. Cardiac silhouette unremarkable. Pulmonary vascularity unremarkable. Aorta unremarkable. Focal right lower lobe opacification in the region of the previously visualized mass. Probable trace right effusion. Upper abdomen unremarkable. Osseous structures intact. No pneumothorax. RAD/Chest 1 View (Portable) IMPRESSION: Heterogeneous opacity in the region of the previously documented mass lesion. New superimposed infectious process is not excluded. Electronically Signed: Marin Andino, at 21:50 EDT Tel , Service support ,
[2020-09-17 21:32] LABS: Absolute Lymphocyte Count 0.75 X10^3/uL (0.83-4.51); Absolute Neutrophil Count 12.5 X10^3/uL (2.0-7.7); Basophil# 0.04 X10^3/uL; Basophil% 0.3 % (0-1); Eosinophil# 0.07 X10^3/uL; Eosinophils% 0.5 % (0-5); Hematocrit 27.2 % (37-47); Hemoglobin 8.9 g/dL (12.0-15.0); Lymphocyte # 0.75 X10^3/ul (4.0); Lymphocyte % 5.2 % (19-41); Mean Corp Hgb Conc 32.7 g/dL (32-36); Mean Corpuscular Hgb 30.4 pg (27.0-32.0); Mean Corpuscular Volume 92.8 fL (81-99); Mean Platelet Vol. 9.2 fl (6.2-12.0); Monocyte# 0.94 X10^3/uL; Monocyte% 6.5 % (0-10); NRBC Flagged by Analyzer 0 % (0-5); Neutrophil # 12.47 X10^3/uL (2.7-7.7); Platelet Count 314 K/mm3 (150-450); RBC Distribution Width CV 15.4 % (11.6-14.6); RBC Distribution Width SD 52.5 fl (35.1-43.9); Red Blood Count 2.93 M/mm3 (4.2-5.4); White Blood Count 14.5 K/mm3 (4.4-11.0)
[2020-09-17 21:49] LABS: ALB/GLOB Ratio 0.7 RATIO (0.9-2.4); AST(SGOT) 80 U/L (15-37); Alanine Aminotransfer ALT/SGPT 104 U/L (13-56); Albumin, Serum 2.4 g/dL (3.2-5.0); Alkaline Phosphatase 236 U/L (45-117); Anion Gap 7 (5-15); BUN 9 mg/dL (7-18); BUN/Creat Ratio 13.2 RATIO (10-20); Chloride 103 mmol/L (98-107); Creatinine, Serum 0.68 mg/dL (0.55-1.02); EST Glomerular Filtration Rate 94 mL/min (>60); Est Glom Filt Rate - Afr Amer 114 mL/min (>60); Estimated Creatinine Clearance 68.88 ml/min; Globulin 3.6 g/dL (2.2-4.2); Glucose 112 mg/dL (74-106); Magnesium 2.1 mg/dL (1.6-2.6); Potassium 3.4 mmol/L (3.5-5.1); Sodium Level 135 mmol/L (136-145)
[2020-09-17] MEDS: Acetaminophen 325 MG Tablet 650 MG PO (21:56)
[2020-09-17 22:02] VITALS: BP 101/65; PULSE 94; RESP 16; TEMP 37.7; O2SAT 95
[2020-09-17 22:09] LABS: Lactic Acid 0.7 mmol/L (0.4-1.9)
[2020-09-17 22:14] LABS: Bacteria 0 SEEN /hpf (None Seen); Mucous, Urine 0 SEEN /hpf (<or=2+); Red Blood Cells-Urine 0 SEEN /hpf (0-5)
[2020-09-17 22:17] LABS: Color, Urine Yellow (Yellow); Glucose, Dipstick Normal (Normal); Ketone-Dipstick Negative (Negative); Leukocyte Esterase-Dipstick 500 /ul (Negative); Nitrite-Dipstick Negative (Negative); Occult Blood-Urine 10 /ul (Negative); Protein-Dipstick 30 mg/dl (Negative); Specific Gravity, Urine 1.005 (1.002-1.030); Urine Bilirubin Dipstick Negative (Negative); Urine Clarity Clear (Clear); Urine Urobilinogen Normal (Normal)
[2020-09-17 22:43] LABS: Squamous Epithelial Cells - UA 0-5 SEEN /hpf (5-10); White Blood Cells 0-5 SEEN /hpf (0-5)
[2020-09-17 22:59] VITALS: BP 102/65; PULSE 94; RESP 16; O2SAT 95
== END 2020-09-17 23:04 | disposition home or self-care (01) ==
PROVIDERS: Emergency Provider Emergency Medicine; PCP Internal Medicine Hematology & Oncology
DX: R50.9 Fever, unspecified (principal); R06.00 Dyspnea, unspecified; R05 Cough; C78.01 Secondary malignant neoplasm of right lung; Z85.3 Personal history of malignant neoplasm of breast; Z87.891 Personal history of nicotine dependence
CPT/HCPCS: 71045; 80053; 81001; 83605; 83735; 85025; 87040; 87635; 96365; 99282; J7040; A4216; U0002

== ENCOUNTER → 2020-10-03 13:36 | Outpatient (CLI) | payer BC, SELFPAY ==
[2020-06-24 10:21] VITALS: BMI 26.2
[2020-09-17 20:30] VITALS: BMI 26.2
== END ==
PROVIDERS: PCP Internal Medicine Hematology & Oncology; Referring Provider Family Medicine; Visit Provider Family Medicine
DX: Z03.818 Encounter for observation for suspected exposure to other biological agents ruled out (principal)
CPT/HCPCS: 87635; U0003

== ENCOUNTER → 2020-11-04 08:02 | Outpatient (CLI) | payer BC, SELFPAY ==
[2020-10-04 11:14] VITALS: BMI 25.1
--- NOTE | 2020-11-04 08:04 | CT_ITS ---
STUDY: CT CHEST WITH CONTRAST REASON FOR EXAM: Female, 59 years old. Malignant neoplasm right lung, breast cancer 2017 with left mastectomy, chemotherapy, radiation, partial thyroidectomy. RADIATION DOSAGE (If Supplied By Facility): CTDIvol = ( 7.58 ) mGy, DLP = ( 173.45 ) mGycm TECHNIQUE: Transaxial imaging was performed following intravenous administration of IV 100mL Isovue-300. Multiplanar coronal and sagittal images were reformatted. Individualized dose optimization techniques were used for this CT. COMPARISON: Comparison is made with prior study dated 08/20/2020. FINDINGS: The patient is status post left thyroidectomy. The patient is once again status post left mastectomy. Interval decrease in size of the soft tissue mass in the right lower lobe. It presently measures 5.8 cm x 4 cm x 5.1 cm. The previously seen nodular density in the posterolateral aspect of the right lower lobe is not seen at this time. There is a new 1.1 cm x 0.8 cm nodule in the anterior lateral aspect of the lingular segment of the left upper lobe. There is no demonstrated pleural abnormality. Normal heart and pericardium. Normal mediastinum. Normal hilar regions. Normal enhanced pulmonary arteries. Normal aorta arch and descending thoracic aorta. There are multi-level degenerative changes of the thoracic spine. Increased kyphosis. There is no demonstrated abnormality of the visualized upper abdomen. CT/Chest WITH Contrast IMPRESSION: Decreased size of the right lower lobe mass. There is a new 1.1 cm x 0.8 semi nodule in the anterior lateral aspect of the lingular segment of the left upper lobe. Electronically Signed: Chuy Crespo, at 13:29 EST , Service support ,
[2020-11-04 08:21] LABS: CREATININE FINGERSTICK 0.9 mg/dL (0.55-1.02); EGFR FINGERSTICK > 60.0000 mL/min (>60)
== END ==
PROVIDERS: PCP Internal Medicine Hematology & Oncology; Referring Provider Internal Medicine Hematology & Oncology; Visit Provider Internal Medicine Hematology & Oncology
DX: C50.612 Malignant neoplasm of axillary tail of left female breast (principal); Z17.1 Estrogen receptor negative status [ER-]; C78.01 Secondary malignant neoplasm of right lung
CPT/HCPCS: 71260; Q9967

== ENCOUNTER → 2020-12-12 08:23 | Outpatient (CLI) | payer BC, SELFPAY ==
[2020-10-04 11:14] VITALS: BMI 25.1
--- NOTE | 2020-12-12 08:28 | CT_ITS ---
STUDY: CT CHEST WITH CONTRAST REASON FOR EXAM: Female, 60 years old. Breast cancer with lung mets, left mastectomy, chemotherapy currently, chronic cough. RADIATION DOSAGE (If Supplied By Facility): CTDIvol = ( 7.47 ) mGy, DLP = ( 175.63 ) mGycm TECHNIQUE: Transaxial imaging was performed following intravenous administration of IV 100mL Isovue-300. Multiplanar coronal and sagittal images were reformatted. Individualized dose optimization techniques were used for this CT. COMPARISON: Comparison is made with prior study dated 11/04/2020. FINDINGS: The patient is status post left mastectomy with left breast prosthesis.. Patient is status post left thyroidectomy. Once again, a mass is seen in the right lower lobe. It presently measures 6 cm x 4.2 cm. This is minimally enlarged as compared to prior study. There is evidence of bilateral atelectasis and/or scarring along the posterior inferior aspect of the mass. The previously seen nodular density in the anterior peripheral aspect of the lingula segment of the left upper lobe has decreased in size. It presently measures 6.2 mm. There is no demonstrated pleural abnormality. Normal heart and pericardium. Normal mediastinum. Normal hilar regions. Normal enhanced pulmonary arteries. Normal aorta arch and descending thoracic aorta. There are multi-level degenerative changes of the thoracic spine. Increased kyphosis. There is no demonstrated abnormality of the visualized upper abdomen. CT/Chest WITH Contrast IMPRESSION: Minimal increased size of the previously documented mass in the right lower lobe. Interval decrease in size of the previously seen nodular density in the anterior aspect of the lingular segment of the left upper lobe. Electronically Signed: Chuy Crespo MD at 9:24 EST , Service support ,
== END ==
PROVIDERS: Referring Provider Internal Medicine Hematology & Oncology; Visit Provider Internal Medicine Hematology & Oncology
DX: C50.612 Malignant neoplasm of axillary tail of left female breast (principal); Z17.1 Estrogen receptor negative status [ER-]; C78.01 Secondary malignant neoplasm of right lung
CPT/HCPCS: 71260; Q9967

== ENCOUNTER 2020-12-31 11:23 | Day surgery (SDC) | payer BC, SELFPAY ==
[2020-10-04 11:14] VITALS: BMI 25.1
--- NOTE | 2020-12-29 16:13 | PCM.HP.BLA ---
History and Physical Date of Admission: 12/31/20 HISTORY AND PHYSICAL ? Disha Martinez 1960 ? ? REFERRING PHYSICIAN: Shaij Almonte DO ? CHIEF COMPLAINT: Consult for port ? HPI: The patient is a 60 year old female with a diagnosis of metastatic left breast cancer. Disha is currently scheduled to undergo chemotherapy and needs vascular access for treatment. The patient had a previous right-sided port which was placed by Dr. Poon in 2016. She notes that port functioned well but she later had it removed when she completed her treatment. In November 2019 patient had chest x-ray done at [facility] for evaluation of cough, which showed a right lower lobe lung mass. 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 She is now undergoing chemotherapy and has been having trouble with vascular access. ? The patient is being seen by me today at the request of Dr. Almonte for my opinion and advice regarding port placement. ? Patient denies chest pain, shortness of breath or recent hospitalizations. Denies problems with sedation in the past. ? ? PAST MEDICAL HISTORY ? Breast cancer (HCC) 01/2017 ? Goiter, unspecified ? ? benign nodule ? PAST SURGICAL HISTORY ? MASTECTOMY HX Left 06/2017 ? S POWER PORT ? 03/11/2017 ? THYROIDECTOMY ? 08/03/2001 ? partial-right side for growth ?? CURRENT MEDICATIONS ? potassium chloride (K-TAB) 10 mEq tablet Take 1 tablet by mouth once daily. 30 tablet 5 ? HYDROcodone-homatropine (HYDROMET) 5-1.5 mg/5 mL syrup Take 5 mL by mouth every 4 hours as needed for up to 6 days. 120 mL 0 ? predniSONE (DELTASONE) 10 mg tablet Take 1 tablet by mouth once daily. 30 tablet 2 ? levoFLOXacin (LEVAQUIN) 750 mg tablet Take 1 tablet by mouth once daily. 7 tablet 0 ? LORazepam (ATIVAN) 0.5 mg Take by mouth at bedtime as needed. as needed ? ? ? loratadine (CLARITIN ORAL) Take 1 capsule by mouth once daily. ? ? ? pantoprazole DR (PROTONIX) 20 mg tablet Take 2 tablets by mouth once daily. 30 tablet 5 ? promethazine (PHENERGAN) 25 mg tablet Take 1 tablet by mouth every 6 hours as needed (For chemotherapy induced nausea). FOR NAUSEA 60 tablet 2 ? SYMBICORT 160-4.5 mcg/actuation inhaler Inhale 2 Puffs as instructed twice daily. ? benzonatate (TESSALON PERLE) 100 mg capsule Take 1 capsule by mouth three times daily as needed for Cough. (Patient not taking: Reported on 12/25/2020 ) 90 capsule 1 ? MELATONIN ORAL Take 2 tablets by mouth as needed. ? ? ? calcium carbonate 600 mg-cholecalciferol 200 units (CALCIUM 600 WITH VITAMIN D3) 600 mg(1,500mg) -200 unit tab Take 1 tablet by mouth once daily. ? ? ? multivitamin tablet Take 1 tablet by mouth once daily. ? ALLERGIES: Patient has no known allergies. ? PERSONAL HISTORY: Tobacco Use ? Smoking status: Never Smoker ? Smokeless tobacco: Never Used Substance Use Topics ? Alcohol use: Yes ? ? Comment: occasional ? Drug use: No ? FAMILY HISTORY: ? Heart Mother ? ? Congenital heart ? Cancer Father ? ? APL in remision; ? other (NHL) Father ? ? dx 60s ? other (Hemochromotosis) Father ? ? dx 60s ? Diabetes Maternal Grandfather ? ? Seizures Daughter ? ? On medication ? Breast Cancer Sister 54 ? DCIS xrt only ? Cancer Other ? ? maternal cousin dx 69 endometrial cancer ? Cancer Paternal Uncle ? ? d. lung ca +TOB ? Cancer Paternal Uncle ? ? d. lymphoma ? Cancer Maternal Uncle ? ? dx 30s/40s ?prostate cancer ? ? REVIEW OF SYMPTOMS: The review of systems data was entered by the nurse and reviewed by me ? Nursing Notes: You Welch LPN 12/25/2020 3:56 PM Signed REVIEW OF SYSTEMS: General: The patient denies fatigue, denies weight loss, denies weight gain, denies feeling hot, and denies feelings of cold. Eyes: The patient denies glaucoma, denies eye injury/surgery, wears glasses or contacts. Ear/Nose/Throat: The patient denies allergies, denies hayfever, denies ear infections, and denies bloody noses. Cardiovascular: The patient denies chest pain, denies heart disease, denies high blood pressure,denies cardiac stent, denies prior heart attack, denies irregular heart beat, denies high cholesterol, denies poor circulation, denies heart failure, other cardiac issues, denies claudication, denies cold feet, denies peripheral arterial stent. Respiratory: The patient denies tuberculosis, denies pneumonia, denies frequent cough, denies pulmonary embolism, denies shortness of breath, and denies coughing up blood. Gastrointestinal: The patient denies difficulty swallowing, denies acid reflux, denies ulcers, denies vomiting, denies jaundice/hepatitis, denies gallbladder problems, denies black or tarry stools, denies hemorrhoids, denies bleeding from rectum, denies diverticulitis, denies constipation, denies diarrhea, denies loss of stool control, and denies hernias. Kidney/Bladder: The patient denies kidney stones, denies urine infections, and denies bloody urine. Skin: The patient denies a history of skin cancer, denies bleeding/changing moles, and denies a history of skin rash. Neurologic: The patient denies a history of epilepsy/convulsions, denies headaches, denies head/spinal injuries, and denies stroke/TIA. Psychiatric: The patient denies psychiatric medications, denies depression, and denies voices, denies substance abuse. Endocrine: The patient NOTES thyroid disorders, denies diabetes, and denies hormonal problems. Hematologic: The patient denies a history of bruising, denies bleeding, and denies anemia, denies blood clots. Infections: The patient denies a history of measles and mumps, denies rheumatic fever, and denies sexually transmitted diseases. Musculoskeletal: The patient denies back pain/injury, denies back problems, denies sciatica, denies knee/foot trouble, denies arthritis, or denies gout. ? ? When was patient's last Mammogram screening? N/A ? Last Colonoscopy: 2013 ? You Welch LPN I have confirmed and edited as necessary, the PFSH and ROS obtained by others. ? PHYSICAL EXAMINATION: ? General: The patient is 60 year old female, well nourished, well hydrated in no acute distress. The patient is oriented to time, place, and person. ? VITALS: Blood pressure 132/80, last menstrual period 12/17/2009. There is no height or weight on file to calculate BMI. ? HEENT: Normal cephalic, ataumatic, pupils are equally round, sclera are anicteric, mucous membranes are moist, oropharynx is clear. Neck has no masses, asymmetry or lymphadenopathy. Thyroid is unremarkable. ? Respiratory: Clear to auscultation and percussion. Normal respiratory excursion and pattern. ? Cardiac: Examination is regular rate and rhythm. ? Abdominal exam: Soft, nontender, with no palpable masses. No hepatosplenomegaly. No palpable hernias. ? Rectal exam: exam deferred ? Extremities: no clubbing, cyanosis or edema. No adenopathy. ? ? IMPRESSION: Metastatic left breast cancer, need for IV access ? PLAN: I have reviewed my findings with the surgeon. Dr. Poon plans to perform a right-sided port a cath placement. The planned surgical procedure was discussed extensively with the patient. The risks, benefits, anticipated outcomes and possible complications were mentioned. My staff has also explained the procedure in understandable terms and the patient was given the option to take printed material concerning the planned procedure. The patient had the opportunity to ask questions concerning the planned procedure. The patient freely consents to the planned procedure. ? The patient was offered a surgery/procedure . I have counseled the patient regarding the risk of exposure to and/or potential harm posed by the COVID-19 virus with having a surgery/procedure at this time versus the risk of? delaying the surgery/procedure. It is not possible to know either the risk of delaying the surgery or procedure or chance of getting an infection with perfect accuracy, but a joint decision was made between the patient and myself?to proceed at this time with endoscopy. ? ? Planned Procedure: port placement ? Patient Weight Last 1 Encounter Wt Readings: Date: Wt: 12/25/2020 61.5 kg (135 lb 8 oz) ? 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 Planned Anesthetic: MAC with local ? plan to access the port at the time of surgery. ? 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 Isabel Aviles PA-C
[2020-12-31 11:51] VITALS: BP 110/65; PULSE 95; RESP 16; TEMP 36.4; O2SAT 96; BMI 25.2
[2020-12-31] MEDS: Lactated Ringers 1,000 ML 75 ML IV ×2 (12:09→15:01)
[2020-12-31] MEDS: Cefazolin 2 GM in 0.9% Normal Saline 100 ML IV (13:38)
[2020-12-31] MEDS: Lidocaine 2% /Epi 1:100 (50ml) 50 ML Vial (14:23)
--- NOTE | 2020-12-31 14:29 | PCM.OPRPT ---
Report of Operation Date of Procedure: 12/31/20 Pre-Operative Diagnosis: metastatic breast cancer (left) with right lung metastasis, need for IV access with portacath due to exhausted vascular access Post-Operative Diagnosis: same Surgery/Procedure Performed:: placement of permanent indwelling tunnelled catheter in right internal jugular vein with subcutaneous port Description of Surgical Findings:: normal right IJ anatomy to SVC Type of Anesthesia:: Local MAC Anesthesiologist: Thiago Kim Specimen's removed: none Estimated Blood Loss (mL): < 10 Fluids Replaced: 1200 ml RL Description of Procedure: After informed consent was given, the patient was brought to the Operating Room. Appropriate time out protocol was followed. The patient was then placed in the supine position. The patient was then given IV conscious sedation for anesthesia. The patient?s upper chest and neck were then prepped with a surgical skin preparation and sterile surgical drapes were placed. After proper landmarks were ascertained, the skin at the upper right chest area was then infiltrated with 1% xylocaine with epinephrine. A needle trocar was then attempted to be inserted into the right subclavian vein however after several attempts, access to the right subclavian vein could not be done. Therefore additional local anesthetic was applied to the skin and subcutaneous tissues of the patient's right neck. The ultrasound machine was used for real time imaging. Using the ultrasound transducer, the right internal jugular vein was identified. The needle trocar was then directed through the skin and into the right internal jugular vein and this was entirely visualized using ultrasound. There was good aspiration of venous blood. A wire was then threaded into the needle trocar and this was visualized under fluoroscopy to ensure that the wire was in the right internal jugular vein. Once this was done, then the needle trocar was removed. A small skin jay was made with an 11 blade knife at the wire entrance site. The dilator with the introducer sheath attached was then placed over the wire into the right internal jugular vein via the Seldinger technique and this was visualized under fluoroscopy. The dilator and sheath were in proper position as visualized by fluoroscopy in real time. The wire and dilator were then removed. The catheter was then threaded into the introducer sheath and was positioned with its tip at the junction of the superior vena cava and the right atrium as visualized under fluoroscopy in real time. I personally reviewed all of the above fluoroscopic images and noted that the positions of the wire and catheter were correct so that the next step could be conducted. The catheter was flushed with a heparin saline mixture prior to placement. A subcutaneous pocket was then created caudad to the catheter insertion site. A transverse skin incision was made after the skin and subcutaneous tissues were infiltrated with local anesthetic. This was made at the patient's previous portacath site. Blunt dissection was then used to create a space large enough for placement of the subcutaneous port. Hemostasis was carefully controlled with electrocautery. The port was sutured to the subcutaneous fascia using vicryl suture at three sites. The catheter was then tunneled into the subcutaneous pocket. The excess catheter was transected. The catheter was then attached to the subcutaneous port using banana ripening room supervisor?s guidelines. The port was then placed in the subcutaneous pocket and the sutures were ligated. The subdermal incisional sites were reapproximated with interrupted vicryl suture. The skin was reapproximated with monocryl suture in a subcuticular fashion. Cavilon and steristrips were used for reinforcement of the skin closure and a sterile opsite dressing was applied. Sponge, needle, and instrument count were verified and correct at the time of skin closure. The patient was brought to the Recovery Room in stable condition Grafts/Implants Used: Power port 8Fr - Complications none noted - Admit VTE Documentation VTE Present on Admission: Yes VTE Mechan Device Prophylaxis: SCD's
--- NOTE | 2020-12-31 14:37 | RAD_ITS ---
STUDY: X-RAY CHEST REASON FOR EXAM: Female, 60 years old. POST OP PORT PLACEMENT TECHNIQUE: Single AP portable view of the chest. COMPARISON: Comparison is made with prior study dated 09/17/2020. FINDINGS: A right-sided portacatheter has been placed with the tip at the junction of the superior vena cava and right atrium. EKG electrodes are seen. Surgical clips are seen in the left axillary region. Stable right lower lobe pulmonary mass. There is no demonstrated pleural abnormality. Normal size heart. Normal mediastinum and don. Normal visualized pulmonary arteries. Normal visualized aortic arch and descending thoracic aorta. There are degenerative changes of the visualized thoracic spine. Normal visualized ribs, clavicles, and shoulders. There is no demonstrated abnormality of the visualized soft tissue structures of the upper abdomen. RAD/CXR for Line Placement IMPRESSION: The tip of the right lupe catheter is at the junction of the superior vena cava and right atrium. Stable right lower lobe pulmonary mass. Electronically Signed: Chuy Crespo MD at 14:57 EST , Service support ,
[2020-12-31 14:38] VITALS: BP 102/49; BP 110/65; PULSE 103; RESP 16; TEMP 36.5; O2SAT 94
--- NOTE | 2020-12-31 14:39 | DCINST_ITS ---
Discharge Diet: No Restrictions Discharge Activity: Return to Normal Activity Call your doctor if your incision/area has: Continuous Slow Oozing, Foul Smelling Discharge Additional Instructions: Recommended pain control regimen - May take 600 mg ibuprofen (Motrin) and then in 3-4 hours, may take 650 mg acetaminophen (Tylenol), then in 3-4 hours may take 600 mg ibuprofen, then in 3- 4 hours may take 650 mg acetaminophen and so on for 2-3 days Leave dressings in place May get dressings wet in shower - do not scrub in the area and pat dry . No follow up required to decrease risk of exposure during this COVID crisis, if any questions and/or concerns, please contact us at . Allergies/Adverse Reactions: Allergies No Known Allergies Allergy (Verified 12/31/20 11:48) Medications to take at Discharge Calcium Carbonate/Vitamin D3 [Calcium 500-Vit D3 600 Tablet] 1 ea PO DAILY 03/10/17 Multivitamins,Therapeutic [Multivitamin] 1 tab PO DAILY 03/10/17 budesonide-formoterol HFA 160 mcg-4.5 mcg/actuation aerosol inhaler 2 puff INHALATION BID #10.2 g 06/24/20 zoledronic acid 4 mg/100 mL in mannitol 5 %-water intravenous piggybck mg .ROUTE 06/24/20 sacituzumab govitecan-hziy 180 mg intravenous solution mg CONTINUOUS IV INFUSION 10/04/20 Acetaminophen/Diphenhydramine [Tylenol Pm Ex-Strength Caplet] 1 ea PO PRN PRN 12/26/20 Hydrocodone Bit/Homatrop Me-Br [Hydrocodone-Homatropine Syrup] 5 ml PO PRN PRN 0 12/26/20 Loratadine [Claritin] 10 mg PO DAILY 12/26/20 Lorazepam [Ativan] 0.5 mg PO DAILY PRN PRN 12/26/20 Melatonin 5 mg PO PRN PRN 12/26/20 Pantoprazole Sodium [Protonix] 20 mg PO BID 12/26/20 Prednisone 10 mg PO DAILY 12/26/20 proMETHazine tablet [Phenergan tablet] 25 mg PO DAILY 12/26/20 Primary Care Physician: Care Physician,No Primary [Primary Care Provider] - Test Results: Test results from this visit will be discussed in further detail at your follow- up appointment, if applicable.
[2020-12-31 14:43] VITALS: BP 106/55; BP 110/65; PULSE 99; RESP 16; O2SAT 94
[2020-12-31 14:48] VITALS: BP 105/57; BP 110/65; PULSE 98; RESP 16; O2SAT 94
[2020-12-31 14:53] VITALS: BP 107/66; BP 110/65; PULSE 105; RESP 16; TEMP 36.6; O2SAT 95
[2020-12-31 15:45] VITALS: BP 110/65
== END 2020-12-31 16:31 | disposition home or self-care (01) ==
LOC: SDC 11:23 → AC 11:24
PROVIDERS: Referring Provider Surgery; Visit Provider Surgery
PROC: (CPT 36561; principal; 2020-12-31 12:45)
DX: Z45.2 Encounter for adjustment and management of vascular access device (principal); C50.612 Malignant neoplasm of axillary tail of left female breast; Z17.1 Estrogen receptor negative status [ER-]; C78.01 Secondary malignant neoplasm of right lung; Z20.822 Contact with and (suspected) exposure to COVID-19
CPT/HCPCS: 00532; 36561; 76937; 71045; 77001; 87426; C9803; J7120; C1788; J2405

== ENCOUNTER → 2021-01-14 15:56 | Outpatient (CLI) | payer BC, SELFPAY ==
[2020-12-31 11:51] VITALS: BMI 25.2
--- NOTE | 2021-01-14 15:00 | PET_ITS ---
EXAMINATION: FDG PET/CT ? Head to Pelvis INDICATIONS: A 60-year-old female with reported history of carcinoma of the breast presenting for restaging examination. COMPARISON EXAMINATION: FDG PET study dated 12/25/19 INDEX LESION SIZE SUV INTERPRETATION PERSISTENT: right lower lung-right lower lobe 5.3 x 6.6-cm, compared to 6.7-cm (12/25/19) 4.0 comp. to 5.4 (12/25/19) Fulfills quantitative criteria for viable neoplasm, minimal interim metabolic change, relative quantitative metabolic stability TECHNIQUE: Following the intravenous administration of 13.6 mCi of F-18 deoxyglucose via the right hand, multiplanar image acquisitions of the head, neck, chest, abdomen and pelvis to level of mid thigh, obtained at one hour post radiopharmaceutical administration contemporaneously interpreted with the current CT of the head, neck, chest, abdomen and pelvis to level of mid thigh, dated 01/14/21 via coregistration and previous FDG PET study dated 12/25/19 reveal: SERUM GLUCOSE LEVEL: 120 mg/dl. HEIGHT: 60 inches. WEIGHT: 132 lbs. FINDINGS: 1. There is redefined increased glucose metabolism manifest in the right lower posterior lung-right lower lobe rendering a current calculated maximal standard uptake value of 4.0, compared to 5.4 defined on the FDG PET study dated 12/25/19. The maximal axial diameter of the corresponding metabolic, morphologic abnormality on the current examination is 5.3-cm (transverse) x 6.6-cm (AP). 2. Normal physiologic distribution of the radiopharmaceutical is apparent in the hepatic (3.0/2.5) and splenic parenchyma, both renal units, bladder and visualized intestinal tract. Symmetric glucose metabolism is evident in the occipital, frontal, parietal and temporal lobes of the cerebral cortex, as well as normal visualization of the basal ganglia and cerebellar hemispheres. Pertinent CT findings are as follows: CHEST: Nuzhat-cath placement is noted. The left breast is surgically absent. Surgical clips are identified in the left axillary region. Subcentimeter right and left axillary soft tissue densities are non-glucose avid. There are no additional parenchymal densities-nodules defined in the right and left hemithorax with discernible increased FDG uptake. ABDOMEN AND PELVIS: Bilateral inguinal soft tissue with fatty hilus is ametabolic. Colonic diverticulosis is encountered without evidence of diverticulitis. Subcentimeter retroperitoneal soft tissue reveals no evidence of increased tracer uptake. SKELETAL: Degenerative changes are noted in the cervical, thoracic and lumbar spine without evidence of increased radiopharmaceutical concentration. PET/PET/CT Tumor Base -Thigh Subs IMPRESSION: 1. Increased FDG concentration redefined in the right lower lung-right lower lobe fulfills quantitative criteria for viable neoplasm. Histopathologic analysis is recommended. (Chin et al, Annals of Internal Medicine, 138:724, 2003). 2. Overall, compared to the prior FDG PET study dated 12/25/19, there is continued demonstration of viable neoplasm within the context of the right lower lung-right lower lobe manifesting overall quantitative metabolic stability. Electronic Signature Etienne Su D.O. Accurate Quantification of SUVs for this report are calculated using the exclusive [employer]? Technology.??Exclusive [place]. Patent [employer]? Technology ([place].S. Patent No. [id number] [id number]). Electronically Signed: Etienne Su DO at 7:43 EST Tel , Service support ,
== END ==
PROVIDERS: Referring Provider Internal Medicine Hematology & Oncology; Visit Provider Internal Medicine Hematology & Oncology
DX: C50.512 Malignant neoplasm of lower-outer quadrant of left female breast (principal); Z17.1 Estrogen receptor negative status [ER-]; C79.51 Secondary malignant neoplasm of bone
CPT/HCPCS: 78815; A9552

== ENCOUNTER → 2021-03-28 07:55 | Outpatient (CLI) | payer BC, SELFPAY ==
--- NOTE | 2021-03-28 07:57 | CT_ITS ---
STUDY: CT CHEST WITH CONTRAST REASON FOR EXAM: Female, 60 years old. Patient has a history of breast cancer with lung metastasis. Prior left mastectomy with chemotherapy. RADIATION DOSAGE (If Supplied By Facility): CTDIvol = ( 9.93 ) mGy, DLP = ( 343.65 ) mGycm TECHNIQUE: Transaxial imaging was performed following intravenous administration of IV 100mL Isovue-300. Multiplanar coronal and sagittal images were reformatted. Individualized dose optimization techniques were used for this CT. COMPARISON: Comparison is made with prior examination dated 12/12/2020. FINDINGS: The patient is status post left thyroidectomy. The patient is status post left mastectomy. A right-sided portacatheter is seen with the tip in the superior vena cava. Surgical clips are seen in the left axillary region. With again, a soft tissue mass is seen in the right lower lobe. It presently measures 6.4 size by 4.6 cm x 4 cm. This is minimally enlarged as compared to prior study. Stable mild degree of atelectasis and/or scarring at the right lung base. There is no demonstrated pleural abnormality. Normal heart and pericardium. Normal mediastinum. Normal hilar regions. Normal enhanced pulmonary arteries. Normal aorta arch and descending thoracic aorta. There are degenerative changes of the thoracic spine. There is no demonstrated abnormality of the visualized upper abdomen. CT/Chest WITH Contrast IMPRESSION: Persistent mass in the right lower lobe. This has decreased slightly in size as compared to prior study. Stable mild atelectasis and/or scarring at the right lung base. Electronically Signed: Chuy Crespo MD at 11:19 EDT , Service support ,
[2021-03-28 08:20] LABS: CREATININE FINGERSTICK 1.1 mg/dL (0.55-1.02)
[2021-03-28] MEDS: 0.9% Saline Lock 10 ML Syringe IV (08:29)
== END ==
PROVIDERS: PCP Family Medicine; Referring Provider Internal Medicine Hematology & Oncology; Visit Provider Internal Medicine Hematology & Oncology
DX: C50.512 Malignant neoplasm of lower-outer quadrant of left female breast (principal); Z17.1 Estrogen receptor negative status [ER-]; C79.51 Secondary malignant neoplasm of bone; C78.01 Secondary malignant neoplasm of right lung
CPT/HCPCS: 71260; Q9967; A4216

== ENCOUNTER → 2021-07-08 16:26 | Outpatient (CLI) | payer BC, SELFPAY ==
[2021-04-11 10:39] VITALS: BMI 25.2
--- NOTE | 2021-07-08 16:30 | PET_ITS ---
EXAMINATION: FDG PET-CT INDICATIONS: A 60-year-old female with reported history of carcinoma of the breast presenting for restaging examination. COMPARISON EXAMINATION: FDG PET study dated 01/14/21 INDEX LESION SIZE SUV INTERPRETATION NEW: appendicular, axial skeletal structures 5.4 (max) Fulfills quantitative criteria for viable neoplasm PERSISTENT: right lower lung-right lower lobe 6.8-cm (frame 143) comp. to 6.6-cm (01/14/21) 4.9 comp. to 4.0 (01/14/21) Fulfills quantitative criteria for viable neoplasm, minimal interim metabolic change-relative quantitative metabolic stability NON-INDEX LESION SIZE SUV INTERPRETATION NEW: right hemithorax pleural interface-pleural effusion 1.7 Quantitative criteria for viable neoplasm are not fulfilled TECHNIQUE: Following the intravenous administration of 14.27 mCi of F-18 deoxyglucose via the right hand, multiplanar image acquisitions of the neck, chest, abdomen and pelvis to level of mid thigh, obtained at one hour post radiopharmaceutical administration contemporaneously interpreted with the current CT of the neck, chest, abdomen and pelvis, to level of mid thigh, dated 07/08/21 via coregistration and FDG PET study dated 01/14/21 reveals: BLOOD GLUCOSE LEVEL:?? 96 mg/dl?HEIGHT:?60 inches?WEIGHT: 135 lbs. FINDINGS: 1. Redefined increased fluorine labeled GLUCOSE uptake is noted in the right lower lung generating a current calculated maximal standard uptake value of 4.9, compared to 4.0 defined on the previous examination. The maximal axial diameter of the corresponding metabolic, morphologic abnormality on the current examination is 6.8-cm (AP). 2. There is an increase in radiopharmaceutical distribution currently defined in the left posterior ilium, as well as bilateral ribs, proximal-mid humeral diaphysis generating a calculated maximal standard uptake value of 5.4. 3. There is newly identified increased FDG concentration observed in the right hemithorax corresponding to pleural effusion-thickening with a calculated maximal standard uptake value of 1.7. Quantitative criteria for viable pleural neoplasia are not fulfilled. 4. Normal physiologic distribution of the radiopharmaceutical is apparent in the hepatic (2.5/3.0) and splenic parenchyma, both renal units, bladder and visualized intestinal tract. The visualized portion of the cerebral cortical-subcortical structures demonstrate symmetric and preserved glucose metabolism. The right hemithorax pleural effusion demonstrates mild non-quantitatively significant increased glucose metabolism previously described. Nuzhat-cath placement is noted. Previously defined morphologic-anatomic changes noted on review of CT of the neck, chest, abdomen and pelvis on the FDG PET-CT report dated 01/14/20, are essentially unchanged on the current examination. PET/PET/CT Tumor Base -Thigh Subs IMPRESSION: 1. ABNORMAL EXAMINATION INDICATIVE OF MALIGNANT VIABLE NEOPLASM. 2. Increased glucose concentration newly defined in the appendicular, axial skeletal structures fulfill quantitative criteria for viable osseous metastatic disease. (Yas, et al, Clinical Nuclear Medicine, 29:161, 2004). 3. Enhanced radiotracer redemonstrated in the right lower lung-right lower lobe continues to fulfill quantitative criteria for viable neoplasm with single point technique. 4. Facilitated fluorine labeled glucose uptake corresponding to pleural effusion-pleural thickening in the right hemithorax does not fulfill quantitative criteria for viable malignant transformation. (Parnell, et al, Chest 122:1918, 2002). 5. Overall, compared to the prior FDG PET study dated 01/14/21, there is interim development of defined skeletal metastatic disease with persistent apparent viable neoplasm in the right lower lung manifesting overall quantitative metabolic stability. Electronic Signature Etienne Su D.O. Accurate Quantification of SUVs for this report are calculated using the exclusive [employer] Technology, (U.S. Patent No. 10, 674, 983). Standardization and correction of the FDG SUV metric exclusively available with [employer] intellectual property, allow for vendor non-specific objective quantitative sequential FDG PET-CT comparison and otherwise unobtainable optimization of the sensitivity and specificity of the examination. Electronically Signed: Etienne Su DO at 15:15 EDT Tel , Service support ,
== END ==
PROVIDERS: PCP Family Medicine; Referring Provider Internal Medicine Hematology & Oncology; Visit Provider Internal Medicine Hematology & Oncology
DX: C50.512 Malignant neoplasm of lower-outer quadrant of left female breast (principal); C78.01 Secondary malignant neoplasm of right lung; C79.51 Secondary malignant neoplasm of bone
CPT/HCPCS: 78815; A9552

== ENCOUNTER → 2021-09-02 15:25 | Outpatient (CLI) | payer BC, SELFPAY ==
--- NOTE | 2021-09-02 15:00 | PET_ITS ---
EXAMINATION: FDG PET-CT INDICATIONS: A 60-year-old female with history of carcinoma of the breast presenting for restaging examination. COMPARISON EXAMINATION: FDG PET study dated 07/08/21 INDEX LESION SIZE SUV INTERPRETATION NEW: Right lower posterior lung, diffuse, non-nodular 2.2 (max) Quantitative criteria for viable neoplasm are not fulfilled PREVIOUS: right lower lung, appendicular, axial skeletal structures Demonstrate metabolic resolution on the current examination TECHNIQUE: Following the intravenous administration of 17.39 mCi of F-18 deoxyglucose via the right hand, multiplanar image acquisitions of the neck, chest, abdomen and pelvis to level of mid thigh, obtained at one hour post radiopharmaceutical administration contemporaneously interpreted with the current CT of the neck, chest, abdomen and pelvis, to level of mid thigh, dated 09/02/21 via coregistration and FDG PET study dated 07/08/21 reveals: BLOOD GLUCOSE LEVEL:?? 91 mg/dl?HEIGHT:?60 inches?WEIGHT: 133 lbs. FINDINGS: 1. Mild increased FDG distribution is currently defined in the right lower posterior lung, diffuse, non-nodular in presentation, generating a calculated maximal standard uptake value of 2.2. 2. Normal physiologic distribution of the radiopharmaceutical is apparent in the hepatic (2.9) and splenic parenchyma, both renal units, bladder and visualized intestinal tract. The visualized portion of the cerebral cortical-subcortical structures demonstrate symmetric and preserved glucose metabolism. There is homogenous enhanced glucose concentration evidenced in the visualized appendicular and axial skeletal structures. The previously identified increase in FDG distribution noted in the right lower lung-right lower lobe, as well as appendicular and axial skeletal structures is not apparent on the current examination. Persistently right hemithorax pleural effusion remains non-glucose avid. Nuzhat-cath placement is noted. Previously defined morphologic-anatomic changes noted on review of CT of the neck, chest, abdomen and pelvis on the FDG PET-CT report dated 07/08/21, 01/14/21 are essentially unchanged on the current examination. PET/PET/CT Tumor Base -Thigh Subs IMPRESSION: 1. NEGATIVE EXAMINATION. There is no definitive quantitative scintigraphic evidence of recurrent-metastatic/viable neoplasm. 2. There is interval resolution of the previously identified appendicular and axial skeletal, as well as right lower lung-right lower lobe hypermetabolic foci. 3. Enhanced tracer uptake visualized in the right lower lung, diffuse, non-nodular in presentation, does not fulfill quantitative criteria for viable neoplasm. (Federica et al, Journal of Nuclear Medicine 43:302 P, 2002). 4. Homogeneous increased radiopharmaceutical concentration noted in the visualized appendicular and axial skeletal structures is commensurate with the hematopoietic response to chemotherapeutic intervention. 5. Overall, compared to the prior FDG PET study dated 07/08/21, there is current absence of defined viable neoplastic disease with and interval quantitative complete metabolic response relating to all previously identified quantitatively significant hypermetabolic abnormalities. Electronic Signature Etienne Su D.O. Accurate Quantification of SUVs for this report are calculated using the exclusive [employer]. (U.S. Patent No. 10, 674, 983). Standardization and correction of the FDG SUV metric via [employer] technology allow for vendor non-specific objective quantitative examination comparison and optimization of the sensitivity and specificity of the FDG PET-CT examination. Electronically Signed: Etienne Su DO at 22:39 EDT Tel , Service support ,
--- NOTE | 2021-12-24 09:00 | PET_ITS ---
EXAMINATION: FDG PET-CT INDICATIONS: A 61-year-old female with reported history of carcinoma of the breast presenting for restaging examination. COMPARISON EXAMINATION: FDG PET study dated 09/02/21 INDEX LESION SIZE SUV INTERPRETATION NEW: left iliac wing 9.9 (max) Fulfills quantitative criteria for viable osseous neoplasm PERSISTENT: right lower lung-right lower lobe, linear 2.1 comp. to 2.2 (09/02/21) Quantitative criteria for viable neoplasm are not fulfilled, no definitive interim metabolic change NON-INDEX LESION SIZE SUV INTERPRETATION PERSISTENT: overall increase splenic parenchyma Most consistent with extramedullary hematopoiesis TECHNIQUE: Following the intravenous administration of 11.22 mCi of F-18 deoxyglucose via the right hand, multiplanar image acquisitions of the neck, chest, abdomen and pelvis to level of mid thigh, obtained at one hour post radiopharmaceutical administration contemporaneously interpreted with the current CT of the neck, chest, abdomen and pelvis, to level of mid thigh, dated 12/24/21 via coregistration and FDG PET study dated 09/02/21 reveals: BLOOD GLUCOSE LEVEL:?? 90 mg/dl?HEIGHT:?60 inches?WEIGHT: 131 lbs. FINDINGS: 1. Redefined increased 18-F labeled glucose metabolism remains apparent in the right lower lung-right lower lobe, linear in presentation, rendering a current calculated maximal standard uptake value of 2.1, compared to 2.2 defined on the previous examination dated 09/02/21. Quantitative criteria for viable neoplasm are not fulfilled. 2. Newly identified increased FDG is manifest in the left hemipelvis to include the iliac wing extending into the periosseous soft tissues superimposed on diffuse increased glucose metabolism noted throughout the visualized appendicular and axial skeletal structures. The calculated maximal standard uptake value is 9.9. 3. Normal physiologic distribution of the radiopharmaceutical is apparent in the hepatic (3.1/2.9) parenchyma, both renal units, bladder and visualized intestinal tract. The visualized portion of the cerebral cortical-subcortical structures demonstrate symmetric and preserved glucose metabolism. Diffuse radiopharmaceutical concentration is noted in all four quadrants of the abdomen and pelvis. There is homogenous enhanced glucose concentration evidenced in the visualized appendicular and axial skeletal structures. There is visualization of the right atrial myocardial appendage. Persistent increased tracer uptake remains apparent in the parenchyma of a normal sized spleen rendering a calculated maximal standard uptake value of 4.5 (uncorrected), 2.9 (corrected), greater than the hepatic reference. A persistently defined right hemithorax pleural effusion demonstrates no evidence of quantitatively significant increased FDG uptake. Nuzhat-cath placement is noted. Previously defined morphologic-anatomic changes noted on review of CT of the neck, chest, abdomen and pelvis on the FDG PET-CT report dated 09/02/21, are essentially unchanged on the current examination. PET/PET/CT Tumor Base -Thigh Subs IMPRESSION: 1. ABNORMAL EXAMINATION INDICATIVE OF MALIGNANT VIABLE NEOPLASM. 2. Increased glucose concentration currently identified in the left iliac wing extending into the periosseous soft tissues fulfills quantitative criteria for viable osseous neoplasm. (Yas et al, Clinical Nuclear Medicine, 29:161, 2004). 3. Enhanced tracer uptake persistently defined in the right lower lung-right lower lobe does not fulfill quantitative criteria for viable pulmonary parenchymal neoplasia. (Elsy et al, Annals of Internal Medicine, 138:724, 2003). 4. Metabolic and/or anatomic stability may be ensured in the right lower lung-right lower lobe abnormality with repeat FDG PET study and/or CT of the thorax in 3-6 months if clinically indicated. (Xiu, Journal of Nuclear Medicine 45:88, P2004 Irma, Seminars in Thoracic and Cardiovascular Surgery 14:292, 2002). 5. Homogeneous increased radiopharmaceutical concentration noted in the visualized appendicular and axial skeletal structures is commensurate with the hematopoietic response to chemotherapeutic intervention. (Sugawa et al, Journal of Clinical Oncology 16:173, 1998). Facilitated uptake observed in the parenchyma of a normal size spleen likely represents extramedullary hematopoiesis. 6. Overall, compared to the prior FDG PET study dated 09/02/21, there is interim development of defined skeletal metastatic disease. Electronic Signature Etienen Su D.O. Accurate Quantification of SUVs for this report are calculated using the exclusive [employer]. ([place].S. Patent No. [id number]). Standardization and correction of the FDG SUV metric via [employer] technology allow for vendor non-specific objective quantitative examination comparison and optimization of the sensitivity and specificity of the FDG PET-CT examination. Electronically Signed: Etienne Su DO at 21:17 EST ,
== END ==
PROVIDERS: PCP Family Medicine; Referring Provider Internal Medicine Hematology & Oncology; Visit Provider Internal Medicine Hematology & Oncology
DX: C50.512 Malignant neoplasm of lower-outer quadrant of left female breast (principal); C78.01 Secondary malignant neoplasm of right lung; C79.51 Secondary malignant neoplasm of bone
CPT/HCPCS: 78815; A9552

== ENCOUNTER → 2021-09-03 13:16 | Outpatient (CLI) | payer BC, SELFPAY ==
--- NOTE | 2021-09-03 13:19 | CT_ITS ---
EXAM: CT CHEST WITH INTRAVENOUS CONTRAST CLINICAL INDICATION: MALIGNANT NEOPLASM left breast cancer. Lung metastatic disease TECHNIQUE: Helically acquired images were obtained of the chest with intravenous contrast. This CT exam was performed using one or more of the following dose reduction techniques: automated exposure control, adjustment of the mA and/or kV according to patient size, and/or use of iterative reconstruction technique. This report was created using [employer] report generation technology. CONTRAST: IV 100mL Isovue-300 COMPARISON: PET scan done yesterday. FINDINGS: LUNGS AND PLEURAL SPACES: There is a right pleural effusion. Right pneumonectomy changes. Right lower lobe infiltrate. No mass. HEART: Unremarkable. Heart size is normal. No pericardial effusion. MEDIASTINUM: Right volume loss with shift of mediastinum to the right side. No mediastinal or hilar adenopathy. Esophagus is unremarkable. No hiatal hernia. THYROID: Left lobe thyroidectomy change. BONES/JOINTS: Healing right rib fractures. No suspicious lytic or blastic abnormality. SOFT TISSUES: Left mastectomy changes. Left axillary dissection. VASCULATURE: See above. GALLBLADDER AND BILE DUCTS: Gallbladder is contracted TUBES, LINES AND DEVICES: There is a right Port-A-Cath and/or mediport in place. The tip is in the superior vena cava. CT/Chest WITH Contrast IMPRESSION: There is a right pleural effusion. Right pneumonectomy changes. Right lower lobe infiltrate concerning for underlying neoplasm. Electronically Signed: Gerardo Mccarthy MD at 21:42 EDT , Service support ,
[2021-09-03] MEDS: 0.9% Saline Lock 10 ML Syringe IV (13:35)
== END ==
PROVIDERS: PCP Family Medicine; Referring Provider Internal Medicine Hematology & Oncology; Visit Provider Internal Medicine Hematology & Oncology
DX: C50.512 Malignant neoplasm of lower-outer quadrant of left female breast (principal); Z17.0 Estrogen receptor positive status [ER+]; C78.01 Secondary malignant neoplasm of right lung; C79.51 Secondary malignant neoplasm of bone; J90 Pleural effusion, not elsewhere classified
CPT/HCPCS: 71260; Q9967; A4216

== ENCOUNTER → 2021-09-16 12:50 | Outpatient (CLI) | payer BC, SELFPAY ==
--- NOTE | 2021-09-16 12:49 | SP.MBSS_ITS ---
Modified Barium Swallow - Patient Information Study Date: 09/16/21 Study Time: 13:00 Direct Billable Minutes: 145 Total Minutes procedure & reportin Diagnosis: malignant neoplasm of left breast; aspiration into airway Referring Physician: Shaji Almonte Reason for Referral: Referred for objective assessment of swallow function under fluoroscopy recommended d/t frequent/recurrent cough w/ suspicion for aspiration Medical History: Chronic cough, acute bronchitis, bilateral impacted cerumen, breast cancer s/p L mastectomy, thyroid disease s/p thyroidectomy, hx goiter, R lung partial lobectomy Dentition: Natural Teeth Mental Status: WNL Respiratory Status: Oxygenating on Room Air - Penetration-Aspiration Scale Penetration-Aspiration Scale: OBJECTIVE ASSESSMENT OF SWALLOW FUNCTION (QUANTITATIVE ? PER TRIAL): PENETRATION / ASPIRATION SCALE ([place]): 1 = does not enter airway 2 = enters airway/above vocal folds/ejected 3 = enters airway/above vocal folds/not ejected 4 = enters airway/contacts vocal folds/ejected 5 = enters airway/contacts vocal folds/not ejected 6 = enters airway/below vocal folds/ejected 7 = enters airway/below vocal folds/not ejected despite effort 8 = enters airway/below vocal folds/no effort - Penetration-Aspiration Scale Score Thin Liquid via teaspoon Result: 2= enter airway/above vocal folds/ejected Thin Liquid via teaspoon Trial 2 Result: 1= does not enter airway Thin Liquid via small single sip from cup Result: 1= does not enter airway Thin Liquid via sequential sips from cup Result: 1= does not enter airway Thin Liquid via single sip from straw Result: 1= does not enter airway [place] Thick Liquid via small single sip from cup Result: 1= does not enter airway Pudding via teaspoon Result: 1= does not enter airway Cookie Result: 1= does not enter airway Thin Liquid via small single sip from cup Trial 2 Result: 1= does not enter airway - Oral Phase Labial Seal: No Labial Escape Tongue Control During Bolus Hold: Cohesive bolus between tongue to palatal seal Bolus Preparation/Mastication: Timely and efficient chewing and mashing Bolus Transport/Lingual Motion: Delayed initiation of tongue motion Oral Residue: Complete oral clearance - Pharyngeal Phase Initiation of Pharyngeal Swallow: Bolus head at posterior laryngeal surgace of epiglottis - w/1st tsp thin liquid only, swallow onset when bolus head in valleculae w/ all subsequent trials Soft Palate Elevation: No bolus between soft palate and pharyngeal wall Laryngeal Elevation: Comp. Superior move thyroid cart w/comp. apprx arytenoid cart-epig pet Anterior Hyoid Excursion: Partial anterior movement Epiglottic Movement: Complete inversion Laryngeal Vestibule Closure at Height of Swallow: Complete; no air/contrast in laryngeal vestibule Pharyngeal Stripping Wave: Present - complete Pharyngoesophageal Segment Opening: Complete distension and complete duration; no obstruction of flow Tongue Base Retraction: Trace column of contrast between tongue base & post. pharyngeal wall Pharyngeal Residue: Complete pharyngeal clearance - Esophageal Phase Esophageal Clearance: Esophageal retention - Diagnosis/Impression Diagnosis: oropharyngeal swallow function is GROSSLY WNL Impression: Swallow function is characterized by: * sufficient oral containment * premature pharyngeal bolus entry prior to swallow onset w/ thin liquid via teaspoon 1x only resulting suboptimal bolus location upon swallow onset w/ transient laryngeal vestibule penetration with the 1st bolus provided * improved bolus location upon swallow onset across all other PO trials w/ complete airway closure/no laryngeal vestibule penetration * mild disorganization of A-P oral bolus transportation appreciated w/ pudding consistency d/t textural aversion; functional/organized bolus transportation w/ all other trials * trace to no post-prandial residue retention w/in the pharynx * esophageal screening to assess bolus clearance revealed contrast retention w/in the upper 3rd of the esophagus * although not evidenced under fluoroscopy, cannot rule out retrograde bolus flow from esophagus into pharynx Swallow function was found to be grossly WNL w/out evidence of dysphagia contributing to an increased risk for penetration/aspiration. Chronic cough does not appear to be related to oropharyngeal swallow function. Diet Recommended: * Regular Texture (IDDSI: 7) * Thin Liquid (IDDSI: 0) Compensatory Strategies Recommended: * Sit upright w/ hip flexion at 90 degrees during PO intake * Remain seated upright for 30-60 minutes after PO intake (GERD precautions) Additional Speech Therapy Services Recommended: No * Patient able to comprehend and express understanding of recommended intake precautions detailed above with sufficient detail to suggest high likelihood of compliance. * No further skilled speech-language services warranted at this time targeting dysphagia. Referrals: * Noted slight gravely vocal quality prior to starting the swallow study. Pt reports that she will frequently cough when talking. Consider further workup via ENT to assess impact of chronic cough on vocal folds d/t reported vocal quality change. * Would further consider ENT/GI referral to determine if reflux of esophageal contents may be causing pharyngeal/laryngeal irritation as precipitating cause of chronic cough, as esophageal retention was evidenced under fluoroscopy. Education Provided: * Images were reviewed w/ the patient following MBS conclusion. * Results and recommendations were discussed with the Patient immediately following MBS completion, with the Patient verbalizing understanding and agreement with all recommendations and education provided. * At the patient's request, findings from MBS were further discussed and images were reviewed in detail w/ her , Clyde Martinez, later this same date as he was unable to accompany the patient to this study. - Status Active ST Patient: Active - Contact Information [facility] Speech Therapy:: Mag Wong M.A., CCC-FOOD ORDER DELIVERY RUNNER [address] [place] [address] x [phone] [email or web address]
== END ==
PROVIDERS: PCP Family Medicine; Referring Provider Internal Medicine Hematology & Oncology; Visit Provider Internal Medicine Hematology & Oncology
DX: T17.908A Unspecified foreign body in respiratory tract, part unspecified causing other injury, initial encounter (principal); X58.XXXA Exposure to other specified factors, initial encounter; C50.512 Malignant neoplasm of lower-outer quadrant of left female breast; Z17.1 Estrogen receptor negative status [ER-]
CPT/HCPCS: 74230; 92611

== ENCOUNTER → 2021-10-03 14:09 | Outpatient (CLI) | payer BC, SELFPAY ==
--- NOTE | 2021-10-03 14:11 | RAD_ITS ---
STUDY: X-RAY CHEST REASON FOR EXAM: Female, 60 years old. CHEST PAIN RIGHT PLEURAL EFFUSION TECHNIQUE: XR Chest Special Views (eg Decubitus) Comparison: ct 09.03.21 FINDINGS: There is a right pleural effusion. Right lower lobe infiltrate. There is a right Port-A-Cath and/or mediport in place. The tip is in the superior vena cava. Surgical changes along the left thyroid lobe. Multiple abnormal appearing right ribs. Healed left rib fractures. There are multiple metallic clips in the left axilla. This is consistent for a prior axillary dissection. There are mastectomy changes noted. Normal size heart. Normal mediastinum and don. Normal visualized pulmonary arteries. There is atherosclerotic calcification of the aortic arch with tortuosity. There are diffuse degenerative changes of the visualized thoracic spine. There is degenerative osteoarthritis of the bilateral shoulders. There is no demonstrated abnormality of the visualized soft tissue structures of the upper abdomen. RAD/Special CXR (Obl/Decub/A/L) IMPRESSION: There has been no change in the appearance of the chest since the prior ct. Electronically Signed: Gerardo Mccarthy MD at 19:27 EST , Service support ,
--- NOTE | 2021-10-03 14:20 | RAD_ITS ---
STUDY: X-RAY CHEST REASON FOR EXAM: Female, 60 years old. CHEST PAIN BREAST CA METS TECHNIQUE: XR Chest 2 Views COMPARISON: Study done earlier today. FINDINGS: There is a right pleural effusion. Right lower lobe infiltrate. There is a right Port-A-Cath and/or mediport in place. The tip is in the superior vena cava. Surgical changes along the left thyroid lobe. Multiple abnormal appearing right ribs. Healed left rib fractures. There are multiple metallic clips in the left axilla. This is consistent for a prior axillary dissection. There are mastectomy changes noted. Normal size heart. Normal mediastinum and don. Normal visualized pulmonary arteries. There is atherosclerotic calcification of the aortic arch with tortuosity. There are diffuse degenerative changes of the visualized thoracic spine. There is degenerative osteoarthritis of the bilateral shoulders. There is no demonstrated abnormality of the visualized soft tissue structures of the upper abdomen. RAD/Chest PA and Lateral IMPRESSION: There has been no change in the appearance of the chest since the prior study. Electronically Signed: Gerardo Mccarthy MD at 19:25 EST , Service support ,
== END ==
PROVIDERS: PCP Family Medicine; Referring Provider Internal Medicine Hematology & Oncology; Visit Provider Internal Medicine Hematology & Oncology
DX: C50.919 Malignant neoplasm of unspecified site of unspecified female breast (principal); C79.9 Secondary malignant neoplasm of unspecified site; J90 Pleural effusion, not elsewhere classified
CPT/HCPCS: 71046

== ENCOUNTER → 2021-10-10 12:24 | Outpatient (CLI) | payer BC, SELFPAY ==
--- NOTE | 2021-10-10 | FLU_PTH ---
PATIENT: ERICK TELLO LOC: [facility]#:[id number] AGE/SX: 64/F ROOM: RE10/10/[address]: Dr. Justyn Vance MD : 1960 BED: DIS: SPEC #: [id number] RECD: 10/10/21 13:10 STATUS: ZEE GEOVANNY #: [id number] JAYCE: 10/10/21 00:[address]: Justyn Vance DEPT: CYTOLOGY RECD BY: Kellie Vivas ENTERED: 10/13/21 08:46 SP TYPE: Fluid OTHR DR: Dr. Lawrence Ramirez MD Tissues: THORACIC FLUID Procedures: Special Stain Group II Surgery Specimen Level IV Cytospin Fluid HEADER OPERATION: Ultrasound-guided right thoracentesis PRE-OP DIAGNOSIS: Right pleural effusion TISSUE SUBMITTED: Thoracentesis fluid for cytology DIAGNOSIS CYTOLOGY Thoracentesis fluid for cytology (cytospin and cell block): Paucicellular specimen, negative for malignant cells. See comment. SJ:zak 10/14/2021 COMMENT Clinical correlation and appropriate follow up are necessary. CYTOLOGY STUDY Slides are reviewed. CYTOLOGY GROSS Received is 10 ml of ingrid cloudy fluid labeled with the patient's name and and designated per the requisition as thoracentesis. Submitted for cytology preparation including cell block. / zak 10/13/2021 TC:5 CPT: 50445, 89668
--- NOTE | 2021-10-10 12:25 | US_ITS ---
PROCEDURE: ULTRASOUND GUIDED THORACENTESIS. DATE: 10/10/2021. INDICATION: Female, 60 years old. Right pleural effusion. PHYSICIAN: Chuy Crespo M.D. PROCEDURE: The risks, benefits, and alternatives to the procedure were explained to the patient. The specific risks of bleeding, infection, and pneumothorax requiring chest tube insertion were discussed and accepted. Written informed consent was obtained. Ultrasonographic evaluation of the right lower pleural space was carried out. An adequate pocket was identified. The patient was placed in the sitting, upright position. The overlying skin was prepped and draped in sterile fashion. 1% lidocaine was administered subcutaneously for local anesthesia. Under ultrasound guidance, a 5 Vietnamese thoracentesis needle/catheter system was advanced into the right posterior lower pleural fluid collection. Approximately 60 mL of dark ingrid-colored fluid was drained. The catheter was removed, and a sterile dressing was applied. A specimen was collected and sent to the laboratory for analysis, as requested by the referring clinician. The patient tolerated the procedure well. A chest x-ray was ordered. US/Thoracentesis W US IMPRESSION: Ultrasound-guided right thoracentesis. Electronically Signed: Chuy Crespo MD at 13:32 EST , Service support ,
[2021-10-10] MEDS: Lidocaine 2% (20 ml mdv) 20 ML Vial INFILT (12:40)
--- NOTE | 2021-10-10 12:54 | RAD_ITS ---
STUDY: X-RAY CHEST REASON FOR EXAM: Female, 60 years old. Post thora TECHNIQUE: AP inspiration and expiration views. COMPARISON: Comparison is made with prior study 10/03/2021. FINDINGS: The patient is status post right thoracentesis. There is no evidence of pneumothorax. RAD/Chest Insp/Exp 2 View IMPRESSION: No evidence of pneumothorax following thoracentesis. Electronically Signed: Chuy Crespo MD at 13:55 EST , Service support ,
[2021-10-10 13:11] VITALS: BP 100/65; BP 104/68; BP 112/69; PULSE 117; PULSE 124; PULSE 129; RESP 20; TEMP 38.6; O2SAT 97; O2SAT 98; O2SAT 99
[2021-10-10 13:11] LABS: Cytology, Body Fluid / CSF SEE PATHOLOGY REPORT
== END | disposition home or self-care (01) ==
PROVIDERS: PCP Family Medicine; Referring Provider Internal Medicine Critical Care Medicine; Visit Provider Internal Medicine Critical Care Medicine
DX: J90 Pleural effusion, not elsewhere classified (principal); Z90.2 Acquired absence of lung [part of]
CPT/HCPCS: 32555; 71046; 88108; 88305; 88313

== ENCOUNTER 2021-10-10 15:09 | Inpatient (IN) | payer BC, SELFPAY ==
[2021-10-10] VITALS (9 sets, daily range): BP systolic 109–121; BP diastolic 72–85; PULSE 104–119; RESP 16–20; TEMP 37.2–37.7; O2SAT 97–100; BMI 25.4; BMI 25.0
--- NOTE | 2021-10-10 16:18 | EKG12_ITS ---
Test Reason : Blood Pressure : / mmHG Vent. Rate : 110 BPM Atrial Rate : 110 BPM P-R Int : 132 ms QRS Dur : 070 ms QT Int : 328 ms P-R-T Axes : 027 -14 029 degrees QTc Int : 443 ms Sinus tachycardia Otherwise normal ECG Confirmed by MALLORIE GUNTER, ALEXEY ([id number]), publishing editor RADHA PATEL ([id number]) on 10/13/2021 1:19:41 PM Referred By: JASS Confirmed By:ALEXEY NOBLES MD
--- NOTE | 2021-10-10 16:24 | EDS_ITS ---
HPI History of Present Illness Chief Complaint: Fever Detail of Chief Complaint: Fever and neutropenic immune suppressed patient Informant: patient and spouse/S.O. Onset/Context/Timing Onset: Today and Hours Context: Sudden Onset Timing: Continuous Quality: Temperature 101.8 ?F Location: Radiology department Current Severity: Mild Maximum Severity: Moderate Worsened by: Possibly chemo Relieved by: Nothing Associated Symptoms Associated Symptoms: Cough thought to be due to pleural effusion Narrative Narrative: Patient is a middle-aged woman with metastatic breast cancer that is triple negative and received chemo 1 week ago. She not receive a dose of chemo this week because the nurse was unable to access port. She did have a thoracentesis prior to arrival. She was told in the radiology department that she had a fever. She also states she is neutropenic. Patient denies headache, photophobia, neck pain or neck stiffness. She does report nasal congestion for 1 week. She had a negative Covid test on Wednesday. She denies earache, ringing in ears or drainage from ears. She denies sore throat. The cough is nonproductive. She denies chest pain. She denies nausea, vomiting diarrhea. She denies dysuria, frequency, urgency or hematuria. She has not noted rash. Prior similar symptoms: No Recent Illness/Hospitalization: No [facility] Medical History (Updated 10/10/21 @ 19:[address] Riki Gomes MD) Breast cancer History of goiter Thyroid disease Home Medications calcium carbonate-vitamin D3 1 ea PO DAILY 03/10/17 [History Last Taken 05/17/20] multivitamin with folic acid 1 tab PO DAILY 03/10/17 [History Last Taken 05/17/20] hydrocodone-homatropine 5 ml PO PRN PRN 12/26/20 [History Last Taken Unknown] lorazepam 0.5 mg PO DAILY PRN PRN 12/26/20 [History Last Taken Unknown] melatonin 5 mg PO PRN PRN 12/26/20 [History Last Taken Unknown] pantoprazole 20 mg PO BID 12/26/20 [History Last Taken 12/31/20 10:00] promethazine 25 mg PO DAILY 12/26/20 [History Last Taken Unknown] budesonide-formoterol [Symbicort] 2 inh INHALATION BID 10/10/21 [History Last Taken Unknown] potassium chloride 10 meq PO DAILY 10/10/21 [History Last Taken Unknown] Allergy/AdvReac Type Severity Reaction Status Date / Time No Known Allergies Allergy Verified 10/10/21 15:14 Family History Father Melanoma Leukemia Sister Breast cancer Mother Congenital heart defect Surgical History H/O left mastectomy History of lobectomy of lung Social History (Updated 10/10/21 @ 16:[address] Riki Gomes MD) household members: spouse housing: house Smoking Status: Never smoker alcohol intake: current alcohol intake frequency: a few times a week Alcohol type: wine substance use type: does not use ROS ROS ED Constitutional Constitutional ED: Reports fever(s) and weight loss; Denies chills, subjective or sweats Eyes Eyes: Denies blurry vision, change in vision or diplopia ENT ENT ED: Reports rhinorrhea; Denies ear pain or sore throat Cardiovascular Cardiovascular: Denies chest pain, orthopnea, palpitations or racing heartbeat Respiratory/Chest Respiratory/Chest: Reports cough; Denies dyspnea, dyspnea on exertion, orthopnea or sputum Gastrointestinal Gastrointestinal: Denies abdominal pain, diarrhea, nausea or vomiting Genitourinary Genitourinary ED: Denies dysuria, hematuria or urinary frequency Musculoskeletal Musculoskeletal: Denies arthralgias, back pain, myalgias or neck pain Integumentary Denies Abrasions or rash Neurologic Neurologic: Denies headache(s) or weakness Endocrine Endocrinology: Denies polydipsia, polyphagia or polyuria Hematologic/Lymphatic Hematologic/Lymphatic: Reports anemia; Denies easy bleeding or easy bruising EXAM Physical Exam Const Vital Signs: 10/10/21 15:10 10/10/21 16:59 10/10/21 17:10 Temperature 100 F H Temperature Source Oral Pulse Rate 119 H Respiratory Rate 16 Respiratory Pattern Normal Blood Pressure 121/85 H Blood Pressure Mean 97 Pulse Ox 100 Oxygen Delivery Method Room Air Room Air 10/10/21 17:27 10/10/21 18:00 10/10/21 19:00 Temperature 99.6 F H 99.3 F H 99 F Temperature Source Oral Oral Oral Pulse Rate 107 H 113 H 112 H Respiratory Rate 20 H 18 18 Respiratory Pattern Blood Pressure 115/76 112/72 118/78 Blood Pressure Mean 89 85 91 Pulse Ox 98 97 100 Oxygen Delivery Method Nasal Cannula Positive well nourished and well developed General Appearance ED: well developed and NAD; Negative for cyanotic, diaphoretic or pallor HEENT Reports TM's clear and moist mucous membranes HEENT Narrative: Head is atraumatic normocephalic. Nares patent. There is no tenderness over the sinuses. Tympanic Membrane ED: Yes TM's clear Eyes PERRL and EOMs intact bilaterally General Eye ED: Yes pale conjunctiva; Negative for scleral icterus Neck no lymphadenopathy, supple and no JVD Resp normal respiratory effort and No clear to auscultation bilaterally Effort and Inspection: Negative for pain with movement Auscultation: diminished lung sounds right GI normal to inspection, nondistended, normoactive bowel sounds, non-tender and non-distended Palpation: soft Back/Spine no CVA tenderness Cervical Spine: Negative for cervical spine tenderness Thoracic Spine / Upper Back: Negative for thoracic spinal tenderness Lumbar Spine / Lower Back: Negative for lumbar spinal tenderness Extremity normal to inspection General Extremety ED: Negative for edema or tenderness General Extremity: Negative for edema Neuro oriented x3, CN's II-XII intact bilaterally and no sensory deficits noted Sensorium / Orientation: alert Motor Exam: strength 5/5 throughout Psych mental status grossly normal Skin no rashes or lesions noted and no wounds General Skin Exam: Negative for jaundice or pallor MDM MDM MDM Narrative Medical decision making narrative: Sepsis work-up was undertaken and treatment for neutropenia. Since she does have a port vancomycin was ordered to cover for line sepsis. She is tachycardic. She is febrile. Document temperature in radiology was 101.8. She appears slightly pale. CBC was obtained to assess white count as well as H&H and platelet count. Comprehensive metabolic panel to assess liver enzymes and renal function. Urine to rule out urinary tract infection. Cultures were obtained prior to initiation of antibiotics. Because she has a cough chest x-ray was obtained. She did have a negative Covid on Wednesday. Even though she had negative Covid this was repeated since she has upper respiratory symptoms. Lab Data Attestation: I reviewed the patient's lab results. Labs: Laboratory Results - last 24 hr 10/10/21 10/10/21 10/10/21 17:30 17:30 17:30 WBC 3.4 L RBC 4.18 L Hgb 11.8 L Hct 37.0 MCV 88.5 MCH 28.2 MCHC 31.9 L RDW Std Deviation 56.4 H RDW Coeff of Leatha 17.8 H Plt Count 366 MPV 10.0 Immature Gran % (Auto) 0.600 Neut % (Auto) 68.6 Lymph % (Auto) 6.8 L Gregory % (Auto) 16.0 H Eos % (Auto) 6.8 H Baso % (Auto) 1.2 H Absolute Neuts (auto) 2.3 Absolute Lymphs (auto) 0.23 L Nucleated RBC % 0 Differential Comment SEE COMMENT Diff Path Review May foll Platelet Estimate ADEQUATE RBC Morphology N CHROM Anisocytosis RARE PT 13.1 INR 1.1 APTT 32.3 Sodium 135 L Potassium 3.9 Chloride 101 Carbon Dioxide 28.0 Anion Gap 6 BUN 8 Creatinine 0.76 Estim Creat Clear Calc 57.96 Est GFR (MDRD) Af Amer 101 Est GFR (MDRD) Non-Af 83 BUN/Creatinine Ratio 10.6 Glucose 108 H Lactic Acid Calcium 8.9 Total Bilirubin 0.20 AST 28 ALT 36 Alkaline Phosphatase 234 H Total Protein 7.6 Albumin 3.4 Globulin 4.2 Albumin/Globulin Ratio 0.8 L Urine Color Urine Clarity Urine pH Ur Specific [place] Urine Protein Urine Glucose (UA) Urine Ketones Urine Occult Blood Urine Nitrite Urine Bilirubin Urine Urobilinogen Ur Leukocyte Esterase Urine RBC Urine WBC Ur Squamous Epith Cells Urine Bacteria Urine Mucus Fluid Source Fluid Color Fluid Appearance Fluid WBC Fluid RBC Fluid Tot Cell Count Fld Polynuclear WBCs # Fld Polynuclear WBCs % Fluid Mononuclear WBCs Fld Mononuclear WBCs % Fluid Neutrophils Fluid Lymphocytes Fluid Monocytes Fluid Other Cells Fl Pathologist Comment Fluid Glucose Fluid Comment 2 10/10/21 10/10/21 10/10/21 17:30 18:35 Unknown WBC RBC Hgb Hct MCV MCH MCHC RDW Std Deviation RDW Coeff of [place]atha Plt Count MPV Immature Gran % (Auto) Neut % (Auto) Lymph % (Auto) Gregory % (Auto) Eos % (Auto) Baso % (Auto) Absolute Neuts (auto) Absolute Lymphs (auto) Nucleated RBC % Differential Comment Diff Path Review Platelet Estimate RBC Morphology Anisocytosis PT INR APTT Sodium Potassium Chloride Carbon Dioxide Anion Gap BUN Creatinine Estim Creat Clear Calc Est GFR (MDRD) Af Amer Est GFR (MDRD) Non-Af BUN/Creatinine Ratio Glucose Lactic Acid 1.3 Calcium Total Bilirubin AST ALT Alkaline Phosphatase Total Protein Albumin Globulin Albumin/Globulin Ratio Urine Color Yellow Urine Clarity Clear Urine pH 6.0 Ur Specific [place] 1.010 Urine Protein Negative Urine Glucose (UA) Normal Urine Ketones Negative Urine Occult Blood Negative Urine Nitrite Negative Urine Bilirubin Negative Urine Urobilinogen Normal Ur Leukocyte Esterase Negative Urine RBC 0 SEEN Urine WBC 0 SEEN Ur Squamous Epith Cells 0 SEEN Urine Bacteria 0 SEEN Urine Mucus 0 SEEN Fluid Source Fluid Color Fluid Appearance Fluid WBC Fluid RBC Fluid Tot Cell Count Fld Polynuclear WBCs # Fld Polynuclear WBCs % Fluid Mononuclear WBCs Fld Mononuclear WBCs % Fluid Neutrophils Fluid Lymphocytes Fluid Monocytes Fluid Other Cells Fl Pathologist Comment Fluid Glucose 78 H Fluid Comment 2 10/10/21 Unknown WBC RBC Hgb Hct MCV MCH MCHC RDW Std Deviation RDW Coeff of [place]atha Plt Count MPV Immature Gran % (Auto) Neut % (Auto) Lymph % (Auto) Gregory % (Auto) Eos % (Auto) Baso % (Auto) Absolute Neuts (auto) Absolute Lymphs (auto) Nucleated RBC % Differential Comment Diff Path Review Platelet Estimate RBC Morphology Anisocytosis PT INR APTT Sodium Potassium Chloride Carbon Dioxide Anion Gap BUN Creatinine Estim Creat Clear Calc Est GFR (MDRD) Af Amer Est GFR (MDRD) Non-Af BUN/Creatinine Ratio Glucose Lactic Acid Calcium Total Bilirubin AST ALT Alkaline Phosphatase Total Protein Albumin Globulin Albumin/Globulin Ratio Urine Color Urine Clarity Urine pH Ur Specific [place] Urine Protein Urine Glucose (UA) Urine Ketones Urine Occult Blood Urine Nitrite Urine Bilirubin Urine Urobilinogen Ur Leukocyte Esterase Urine RBC Urine WBC Ur Squamous Epith Cells Urine Bacteria Urine Mucus Fluid Source THORACENTESIS Fluid Color YELLOW Fluid Appearance SL CLDY Fluid WBC 0.085 Fluid RBC 0.005 Fluid Tot Cell Count 0.102 H Fld Polynuclear WBCs # 0.004 Fld Polynuclear WBCs % 4.7 Fluid Mononuclear WBCs 0.081 Fld Mononuclear WBCs % 95.3 Fluid Neutrophils 10 Fluid Lymphocytes 16 Fluid Monocytes 72 Fluid Other Cells 2 Fl Pathologist Comment May follow Fluid Glucose Fluid Comment 2 SEE COMMENT Radiography Chest X-Ray - ED: Read by ED Physician (X-ray was interpreted by me as unchanged from chest x-ray earlier today. The effusion has improved status post thoracentesis. There is slight haziness which was noted on prior x-ray. The haziness is unchanged from November 12 as well. The x-ray was turbid by me at 1745.) Diagnostic Testing: Clinical Impression(s) from Imaging Studies Chest X-Ray 10/10/21 17:30 IMPRESSION: Mild pulmonary edema is seen in the inferior aspect of the right upper lobe, question developing infiltrate in this region. Electronically Signed: Foreign Adrian MD at 18:19 EST , Service support , EKG Initial EKG: Attestation: I personally reviewed and interpreted this EKG as follows: Interpretation: Sinus Tachycardia (Ventricular rate is 110. The EKG is otherwise unremarkable. WA interval 132 ms. QRS duration 70 ms. QT duration 3 and 28 ms. [place] is normal.) Discharge Plan Dx/Rx/DC Orders Clinical Impression: Fever and neutropenia, Metastatic breast cancer, Pleural effusion on right, Sepsis Disposition Disposition: Acute Care [facility]
--- NOTE | 2021-10-10 17:30 | RAD_ITS ---
STUDY: X-RAY CHEST REASON FOR EXAM: Female, 60 years old. SENT BY DR ROWE FOR FEVER OF 101.6, THORACENTESIS EARLIER TODAY. LAST CHEMO 9 DAYS AGO, UNABLE TO DO YESTERDAY DUE TO FEVER. COLD SX FOR PAST WEEK. HX BREAST CA WITH METS TO LUNGS AND BONES. TECHNIQUE: Single AP portable view of the chest. COMPARISON: October 10, 2021 at 12:47 PM FINDINGS: 1. Postsurgical volume loss, small to moderate-sized pleural effusion, and architectural distortion of the right lung is reidentified. 2. Mild pulmonary edema is seen in the inferior aspect of the right upper lobe, question developing infiltrate in this region. 3. The left lung remains clear. 4. Right mediastinal rotation unchanged from multiple prior studies. Normal heart size. Stable mediastinal contours. 5. Stable postsurgical suture material 6. Stable right chest port and catheter 7. Stable osseous structures. There is no demonstrated abnormality of the visualized soft tissue structures of the upper abdomen. RAD/Chest 1 View (Portable) IMPRESSION: Mild pulmonary edema is seen in the inferior aspect of the right upper lobe, question developing infiltrate in this region. Electronically Signed: Foreign Adrian MD at 18:19 EST , Service support ,
[2021-10-10 17:54] LABS: Absolute Lymphocyte Count 0.23 X10^3/uL (0.83-4.51); Absolute Neutrophil Count 2.3 X10^3/uL (2.0-7.7); Basophil# 0.04 X10^3/uL; Basophil% 1.2 % (0-1); Eosinophil# 0.23 X10^3/uL; Eosinophils% 6.8 % (0-5); Hemoglobin 11.8 g/dL (12.0-15.0); Lymphocyte # 0.23 X10^3/ul (0.83-4.51); Lymphocyte % 6.8 % (19-41); Mean Corp Hgb Conc 31.9 g/dL (32-36); Mean Corpuscular Hgb 28.2 pg (27.0-32.0); Mean Corpuscular Volume 88.5 fL (81-99); Monocyte# 0.54 X10^3/uL; NRBC Flagged by Analyzer 0 % (0-5); Neutrophil # 2.31 X10^3/uL (2.7-7.7); Neutrophil % 68.6 % (47-70); POSITIVE COUNT YES; POSITIVE DIFFERENTIAL YES; Platelet Count 366 K/mm3 (150-450); RBC Distribution Width CV 17.8 % (11.6-14.6); RBC Distribution Width SD 56.4 fl (35.1-43.9); Red Blood Count 4.18 M/mm3 (4.2-5.4); White Blood Count 3.4 K/mm3 (4.4-11.0)
[2021-10-10 17:55] LABS: Differential Indicated SCAN CRITERIA MET
[2021-10-10 18:05] LABS: ALB/GLOB Ratio 0.8 RATIO (0.9-2.4); AST(SGOT) 28 U/L (15-37); Alanine Aminotransfer ALT/SGPT 36 U/L (13-56); Albumin, Serum 3.4 g/dL (3.2-5.0); Alkaline Phosphatase 234 U/L (45-117); Anion Gap 6 (5-15); BUN 8 mg/dL (7-18); BUN/Creat Ratio 10.6 RATIO (10-20); Calcium,Total 8.9 mg/dL (8.5-10.1); Chloride 101 mmol/L (98-107); Creatinine, Serum 0.76 mg/dL (0.55-1.02); EST Glomerular Filtration Rate 83 mL/min (>60); Est Glom Filt Rate - Afr Amer 101 mL/min (>60); Estimated Creatinine Clearance 57.96 ml/min; Globulin 4.2 g/dL (2.2-4.2); Glucose 108 mg/dL (74-106); Potassium 3.9 mmol/L (3.5-5.1); Protein, Total 7.6 g/dL (6.4-8.2); Sodium Level 135 mmol/L (136-145)
[2021-10-10 18:07] LABS: International Normalized Ratio 1.1; Prothrombin Time (Protime)PT. 13.1 SECONDS (11.7-14.9)
[2021-10-10 18:08] LABS: Partial Thromboplast Time 32.3 Seconds (24.1-36.2)
[2021-10-10 18:21] LABS: Anisocytosis RARE; Platelet Estimate ADEQUATE (ADEQ); Red Cell Morphology N CHROM NORMAL (NORM C&C)
[2021-10-10 18:31] LABS: Lactic Acid 1.3 mmol/L (0.4-1.9)
[2021-10-10 18:41] LABS: Bacteria 0 SEEN /hpf (None Seen); Mucous, Urine 0 SEEN /hpf (<or=2+); Red Blood Cells-Urine 0 SEEN /hpf (0-5); Squamous Epithelial Cells - UA 0 SEEN /hpf (5-10); White Blood Cells 0 SEEN /hpf (0-5)
[2021-10-10 18:46] LABS: Appearance/Body Fluid SL CLDY; Auto B Fluid Analyzer BKGD Ct COUNTS W/IN LIMITS (W/IN LIMITS); Body Fluid Total Cells Counted 0.102 10^3/ul; Color/Body Fluid YELLOW; Red Cell Count/Body Fluid 0.005 10^6/ul; Source- Body Fluid THORACENTESIS
[2021-10-10 18:47] LABS: Body Fluid Mononuclear WBC # 0.081 10^3/uL; Body Fluid Mononuclear WBC % 95.3 %; Body Fluid Polynuclear WBC # 0.004 10^3/uL; Body Fluid Polynuclear WBC % 4.7 %; White Blood Count/Body Fluid 0.085 10^3/uL
[2021-10-10 18:51] LABS: Color, Urine Yellow (Yellow); Glucose, Dipstick Normal (Normal); Ketone-Dipstick Negative (Negative); Leukocyte Esterase-Dipstick Negative /ul (Negative); Nitrite-Dipstick Negative (Negative); Occult Blood-Urine Negative /ul (Negative); Protein-Dipstick Negative (Negative); Urine Bilirubin Dipstick Negative (Negative); Urine Clarity Clear (Clear); Urine Urobilinogen Normal (Normal)
[2021-10-10 19:18] LABS: Glucose, Body Fluid 78 mg/dL (40-70)
[2021-10-10 19:21] LABS: Lymphocytes 16 %; Monocytes 72 %; Neutrophil (Segs) 10 %
[2021-10-10 19:22] LABS: Body Fluid QC Type(s) BF3Q; Other Cell Type/BF 2 %
--- NOTE | 2021-10-10 19:47 | HP.PCM.HOS_ITS ---
HPI - General General Date of Admission: 10/10/21 Date of Service: 10/10/21 Chief Complaint: Fever following thoracentesis, last chemotherapy 9 days prior. HPI Narrative The patient is a 61 y/o F w/ PMHx: Hx goiter, GERD, Anxiety Metastatic Breast CA (lung/bone) following with Dr. Almonte s/p Major mastectomy and partial lobectomy with recent pleural effusion suspicious for malignant effusion who presents to the [facility] ED on 10/10/21 with history of thoracentesis on day of presentation with onset of fever up to 101.6 following with last chemotherapy 9 days prior with URI type symptoms including congestion, rhinorrhea and sore throat ongoing for the last week. Patient has been having recent cough, unchanged from prior with no productive symptoms. Patient has had her COVID vaccination and booster. Work- up in the ED included T initially 101.5, heart rate 129, BP 100/65, respiratory rate 20, 100% on room air with negative orthostatic vital signs, most recent set T 99, heart rate 110, BP 118/78, respiratory rate 18, 98% on room air, CBC with WBC 3.4, hemoglobin 1.8, platelets 366 with lymphopenia and no evidence of neutropenia, unremarkable coags, CMP with sodium 135, glucose 108, lactic acid 1.3, unremarkable hepatic profile aside alk phos 234, blood culture x2 pending per ED, negative rapid influenza panel, negative rapid Covid antigen, UA unremarkable with urine culture pending per ED, chest x-ray with mild pulmonary edema in the inferior aspect of the right upper lobe with questionable developing infiltrate in this region, evidence postsurgical volume loss small to moderate-sized pleural effusion and architectural distortion of the right lung, left lung remains clear, right mediastinal rotation unchanged from prior, right chest port and catheter in place, recent thoracentesis fluid with total cell count 0.102 with cultures pending. In the ED patient ministered normal saline bolus, cefepime and vancomycin. [facility] Medical History (Updated 10/10/21 @ 20:[address] Kaycee Meyers MD) Breast cancer History of goiter Thyroid disease Home Medications calcium carbonate-vitamin D3 1 ea PO DAILY 03/10/17 [History Last Taken 05/17/20] multivitamin with folic acid 1 tab PO DAILY 03/10/17 [History Last Taken 0] hydrocodone-homatropine 5 ml PO PRN PRN 12/26/20 [History Last Taken Unknown] lorazepam 0.5 mg PO DAILY PRN PRN 12/26/20 [History Last Taken Unknown] melatonin 5 mg PO PRN PRN 12/26/20 [History Last Taken Unknown] pantoprazole 20 mg PO BID 12/26/20 [History Last Taken 12/31/20 10:00] promethazine 25 mg PO DAILY 12/26/20 [History Last Taken Unknown] budesonide-formoterol [Symbicort] 2 inh INHALATION BID 10/10/21 [History Last Taken Unknown] potassium chloride 10 meq PO DAILY 10/10/21 [History Last Taken Unknown] Allergy/AdvReac Type Severity Reaction Status Date / Time No Known Allergies Allergy Verified 10/10/21 15:14 Family History Father Melanoma Leukemia Sister Breast cancer Mother Congenital heart defect Surgical History (Updated 10/10/21 @ 20:[address] Kaycee Meyers MD) H/O left mastectomy History of lobectomy of lung S/P partial thyroidectomy Social History (Updated 10/10/21 @ 16:[address] Riki Gomes MD) household members: spouse housing: house Smoking Status: Never smoker alcohol intake: current alcohol intake frequency: a few times a week Alcohol type: wine substance use type: does not use ROS ROS Narrative Admission Review of Systems: CONSTITUTIONAL: No weight loss, + fever, chills, weakness or fatigue. HEENT: + Congestion, rhinorrhea, sore throat. Eyes: No visual loss, blurred vision, double vision or yellow sclerae. Ears, Nose, Throat: No hearing loss, sneezing. SKIN: No rash or itching, lesions, wounds. CARDIOVASCULAR: No chest pain, chest pressure or chest discomfort, palpitations, edema, orthopnea, syncopal events. RESPIRATORY: + shortness of breath although improved after thoracentesis, cough without marked sputum, No wheezing, hemoptysis. GASTROINTESTINAL: No anorexia, nausea, vomiting or diarrhea, abdominal pain, melena, BRBPR. GENITOURINARY: No dysuria, frequency, urgency or retention. NEUROLOGICAL: No headache, dizziness, syncope, paralysis, ataxia, numbness or tingling in the extremities, focal weakness, change in bowel or bladder control, seizure. MUSCULOSKELETAL: + muscle, back pain, joint pain or stiffness. HEMATOLOGIC: + anemia, bleeding or bruising. LYMPHATICS: No enlarged nodes. No history of splenectomy. PSYCHIATRIC: + history of depression or anxiety. ENDOCRINOLOGIC: No reports of sweating, cold or heat intolerance. No polyuria or polydipsia. ALLERGIES: No history of asthma, hives, eczema or rhinitis. Vital Signs Vital Signs Vital Signs: 10/10/21 15:10 10/10/21 16:59 10/10/21 17:10 Temperature 100 F H Temperature Source Oral Pulse Rate 119 H Respiratory Rate 16 Respiratory Pattern Normal Blood Pressure 121/85 H Blood Pressure Mean 97 Pulse Ox 100 Oxygen Delivery Method Room Air Room Air 10/10/21 17:27 10/10/21 18:00 10/10/21 19:00 Temperature 99.6 F H 99.3 F H 99 F Temperature Source Oral Oral Oral Pulse Rate 107 H 113 H 112 H Respiratory Rate 20 H 18 18 Respiratory Pattern Blood Pressure 115/76 112/72 118/78 Blood Pressure Mean 89 85 91 Pulse Ox 98 97 100 Oxygen Delivery Method Nasal Cannula 10/10/21 19:45 Temperature 99 F Temperature Source Temporal Pulse Rate 110 H Respiratory Rate 18 Respiratory Pattern Blood Pressure 118/78 Blood Pressure Mean 91 Pulse Ox 98 Oxygen Delivery Method Weight Weight: 130 lb Body Mass Index (BMI) 25.4 Physical Exam Narrative Physical Examination: General: Awake, alert, oriented x 3 and cooperative, seated upright in the ED bed, fatigued appearing. Skin: Normal color, normal turgor, no icterus, no cyanosis. HEENT: AT/NC, EOMI, PERRLA, mildly dry MM, posterior OP with mild erythema and stippling but no exudate, no carotid bruits or JVD noted. Lungs: CTA bilaterally, moderate effort, mild decrease BL bases, no rales, ronchi or wheezing. Heart: Mildly tachycardic with regular rhythm; no gallop, rub audible. Abdomen: Soft, NTTP, ND, distant normal BS, no HSM. Extremities: No cyanosis, clubbing, or edema. Neurological: Patient awake, alert, oriented as noted, cognitive function intact; pupils equally reactive to light and accommodation, cranial nerves II- XII grossly normal, moving all 4 extremities, no focal deficits, strength moderately globally decreased secondary to acute presentation. Psychiatric: Affect appears fatigued, no acute evidence of depressive or anxiety feelings. Results Lab / Micro Data Result Diagrams: 10/10/21 17:30 10/10/21 17:30 Labs: Laboratory Results - last 24 hr 10/10/21 17:30: WBC 3.4 L, RBC 4.18 L, Hgb 11.8 L, Hct 37.0, MCV 88.5, MCH 28.2, MCHC 31.9 L, RDW Std Deviation 56.4 H, RDW Coeff of Leatha 17.8 H, Plt Count 366, MPV 10.0, Immature Gran % (Auto) 0.600, Neut % (Auto) 68.6, Lymph % (Auto) 6.8 L , [place] % (Auto) 16.0 H, Eos % (Auto) 6.8 H, Baso % (Auto) 1.2 H, Absolute Neuts (auto) 2.3, Absolute Lymphs (auto) 0.23 L, Nucleated RBC % 0, Differential Comment SEE COMMENT, Diff Path Review May foll, Platelet Estimate ADEQUATE, RBC Morphology N CHROM, Anisocytosis RARE 10/10/21 17:30: Sodium 135 L, Potassium 3.9, Chloride 101, Carbon Dioxide 28.0, Anion Gap 6, BUN 8, Creatinine 0.76, Estim Creat Clear Calc 57.96, Est GFR (MDRD) Af Amer 101, Est GFR (MDRD) Non-Af 83, BUN/Creatinine Ratio 10.6, Glucose 108 H, Calcium 8.9, Total Bilirubin 0.20, AST 28, ALT 36, Alkaline Phosphatase 234 H, Total Protein 7.6, Albumin 3.4, Globulin 4.2, Albumin/Globulin Ratio 0.8 L 10/10/21 17:30: PT 13.1, INR 1.1, APTT 32.3 10/10/21 17:30: Lactic Acid 1.3 10/10/21 18:35: Urine Color Yellow, Urine Clarity Clear, Urine pH 6.0, Ur Speci fic [place] 1.010, Urine Protein Negative, Urine Glucose (UA) Normal, Urine Ketones Negative, Urine Occult Blood Negative, Urine Nitrite Negative, Urine Bilirubin Negative, Urine Urobilinogen Normal, Ur Leukocyte Esterase Negative, Urine RBC 0 SEEN, Urine WBC 0 SEEN, Ur Squamous Epith Cells 0 SEEN, Urine Bacteria 0 SEEN, Urine Mucus 0 SEEN 11/19/21 : Fluid Glucose 78 H 10/10/21 : Fluid Source THORACENTESIS, Fluid Color YELLOW, Fluid Appearance SL CLDY, Fluid WBC 0.085, Fluid RBC 0.005, Fluid Tot Cell Count 0.102 H, Fld Polynuclear WBCs # 0.004, Fld Polynuclear WBCs % 4.7, Fluid Mononuclear WBCs 0.081, Fld Mononuclear WBCs % 95.3, Fluid Neutrophils 10, Fluid Lymphocytes 16, Fluid Monocytes 72, Fluid Other Cells 2, Fl Pathologist Comment May follow, Fluid Comment 2 SEE COMMENT Micro: Microbiology 10/10/21 16:50 Mucosa - Nose Influenza Types A,B Direct FA (KLAUS) - Final 10/10/21 16:35 Nasal Secretion SARS-CoV-2 Antigen (Rapid) - Final Radiology Impression Chest X-Ray 10/10/21 17:30 IMPRESSION: Mild pulmonary edema is seen in the inferior aspect of the right upper lobe, question developing infiltrate in this region. Electronically Signed: Foreign Adrian MD at 18:19 EST , Service support , Assessment & Plan Assessment/Plan (1) Pneumonia: QUALIFIERS: Pneumonia type: due to unspecified organism Laterality: right Lung location: upper lobe of lung Qualified Code(s): J18.9 - Pneumonia, unspecified organism PLAN: The patient is a 61 y/o F w/ PMHx: Hx goiter, GERD, Anxiety Metastatic Breast CA (lung/bone) following with Dr. Almonte s/p L mastectomy and partial lobectomy with recent pleural effusion suspicious for malignant effusion who presents to the [facility] ED on 10/10/21 with history of thoracentesis on day of presentation with onset of fever up to 101.6 following with last chemotherapy 9 days prior with URI type symptoms including congestion, rhinorrhea and sore throat ongoing for the last week. 1. Fever on chemotherapy, status post recent thoracentesis with potential right upper lobe PNA, Possible GN/GP Organism, possible Infected Effusion: Will admit to [facility], maintain on oxygen with wean as tolerated to room air, PRN albuterol, maintained on IV Zosyn and Vancomycin given still unclear if truly PNA as source awaiting cultures as noted w/ MRSA screen and de-escalation if appropriate, HOB, IS parameters w/ pending sputum cultures and urine antigens, full respiratory viral panel and will also obtain COVID PCR as only rapid antigens obtained as of yet to be cautious. Pending thoracentesis cultures from procedure performed earlier in the day. Bld cx x 2 obtained in the ED. Procalcitonin pending. 2. Metastatic Breast Cancer to Bone/Lung, Possible Malignant Effusion with associated leukopenia, anemia secondary to ongoing chemotherapy: Patient following w/ Dr. Almonte, currently Dr. Smith covering for Dr. Almonte, will obtain mag and phos, pending thoracentesis cultures, Bld Cx pending from port and peripherally, findings on CXR could certainly be associated w/ recent effusion with only recent drainage. 3. Anxiety: Will continue home ativan PRN reigmen. 4. GERD: Will continue home BID PPI. 5. DVT Prophylaxis: SCDs, lovenox. Charges/Coding Visit Charges Inpatient E&M: 32999 Init Hosp L3
[2021-10-10 21:09] LABS: Magnesium 1.9 mg/dL (1.6-2.6); Phosphorus 2.5 mg/dL (2.5-4.9)
[2021-10-10 22:31] LABS: Probe Check PASS; Specimen Processing Control PASS
--- NOTE | 2021-10-10 22:39 | PCM.RX.CS ---
Consult Pharmacy has been consulted to manage selected antiobiotic: Vancomycin Type of Consult: New start Labs: Sodium 135 mmol/L (136-145) L 10/10/21 17:30 Potassium 3.9 mmol/L (3.5-5.1) 10/10/21 17:30 Chloride 101 mmol/L (98-107) 10/10/21 17:30 Carbon Dioxide 28.0 mmol/L (21.0-32.0) 10/10/21 17:30 Anion Gap 6 (5-15) 10/10/21 17:30 BUN 8 mg/dL (7-18) 10/10/21 17:30 Creatinine 0.76 mg/dL (0.55-1.02) 10/10/21 17:30 Est GFR (MDRD) Af Amer 101 mL/min (>60) 10/10/21 17:30 Est GFR (MDRD) Non-Af 83 mL/min (>60) 10/10/21 17:30 BUN/Creatinine Ratio 10.6 RATIO (10-20) 10/10/21 17:30 Glucose 108 mg/dL (74-106) H 10/10/21 17:30 Microbiology: Microbiology 10/10/21 Unknown Fluid - Thoracentesis Fluid Gram Stain - Preliminary 10/10/21 18:35 Urine, Clean Catch Legionella Antigen - Final 10/10/21 18:35 Urine, Clean Catch Streptococcus pneumoniae Antigen (M - Final 10/10/21 16:50 Mucosa - Nose Influenza Types A,B Direct FA (KLAUS) - Final 10/10/21 16:35 Nasal Secretion SARS-CoV-2 Antigen (Rapid) - Final Weight used for dosin.8 kg Estimated Creatinine Clearance: 64.2 Goal Trough: 15-20 mcg/mL Pharmacy Plan for Drug Dosing: Pharmacy Service will continue to monitor and adjust dosing as required. Medications Vancomycin HCl 750 mg/ Sodium (Chloride) 265 mls @ 250 mls/hr IV Q12H NICOLE Discontinued Medications Vancomycin HCl 1,500 mg/ (Sodium Chloride) 530 mls @ 250 mls/hr IV X1 ONE Stop: 10/10/21 18:27 Last Admin: 10/10/21 20:54 Dose: Infused Documented by: Follow-Up Labs: Trough Vancomycin Labs to be done on [date and time ordered]: 10/12 @ 0532
--- NOTE | 2021-10-10 22:45 | PCS.PANDOC ---
PANDEMIC DOCUMENTATION INITIATED: Date: 10/10/21 Time: 2100
[2021-10-11] VITALS (7 sets, daily range): BP systolic 97–125; BP diastolic 49–75; PULSE 85–115; RESP 16–20; TEMP 36.7–37.4; O2SAT 97–100
[2021-10-11 00:12] LABS: M R Staph aureus DNA By PCR Negative (Negative); Probe Check PASS; Specimen Processing Control PASS
[2021-10-11] MEDS: Albuterol 2.5 MG/3 ML VIAL.NEB. INHALATION (07:25)
[2021-10-11] MEDS: Budesonide Respules 0.5 MG/2 ML AMPUL.NEB. INHALATION (07:25)
[2021-10-11] MEDS: Multivitamins,Therapeutic Tablet 1 TABLET PO (08:07)
[2021-10-11 08:22] LABS: Absolute Neutrophil Count 1.1 X10^3/uL (2.0-7.7); Basophil# 0.02 X10^3/uL; Basophil% 0.9 % (0-1); Eosinophil# 0.13 X10^3/uL; Eosinophils% 5.6 % (0-5); Hematocrit 30.5 % (37-47); Hemoglobin 9.5 g/dL (12.0-15.0); Lymphocyte % 17.3 % (19-41); Mean Corp Hgb Conc 31.1 g/dL (32-36); Mean Corpuscular Hgb 27.3 pg (27.0-32.0); Mean Corpuscular Volume 87.6 fL (81-99); Mean Platelet Vol. 9.1 fl (6.2-12.0); Monocyte# 0.68 X10^3/uL; Monocyte% 29.4 % (0-10); NRBC Flagged by Analyzer 0 % (0-5); Neutrophil # 1.07 X10^3/uL (2.7-7.7); Neutrophil % 46.4 % (47-70); POSITIVE DIFFERENTIAL YES; Platelet Count 318 K/mm3 (150-450); RBC Distribution Width CV 17.6 % (11.6-14.6); RBC Distribution Width SD 55.1 fl (35.1-43.9); Red Blood Count 3.48 M/mm3 (4.2-5.4); White Blood Count 2.3 K/mm3 (4.4-11.0)
[2021-10-11 08:24] LABS: Differential Indicated SCAN CRITERIA MET
[2021-10-11 08:51] LABS: ALB/GLOB Ratio 0.7 RATIO (0.9-2.4); AST(SGOT) 18 U/L (15-37); Alanine Aminotransfer ALT/SGPT 27 U/L (13-56); Albumin, Serum 2.6 g/dL (3.2-5.0); Alkaline Phosphatase 184 U/L (45-117); Anion Gap 6 (5-15); BUN 5 mg/dL (7-18); BUN/Creat Ratio 7.7 RATIO (10-20); Calcium,Total 7.9 mg/dL (8.5-10.1); Chloride 105 mmol/L (98-107); Creatinine, Serum 0.65 mg/dL (0.55-1.02); EST Glomerular Filtration Rate 99 mL/min (>60); Est Glom Filt Rate - Afr Amer 120 mL/min (>60); Estimated Creatinine Clearance 86.08 ml/min; Globulin 3.6 g/dL (2.2-4.2); Glucose 106 mg/dL (74-106); Potassium 3.4 mmol/L (3.5-5.1); Protein, Total 6.2 g/dL (6.4-8.2); Sodium Level 138 mmol/L (136-145)
[2021-10-11] MEDS: Potassium Chloride Oral Tablet 10 MEQ PO (08:59)
[2021-10-11] MEDS: Enoxaparin 40 MG/0.4 ML Syringe SC (09:00)
[2021-10-11] MEDS: Pantoprazole Sodium 20 MG Tablet PO ×2 (09:00→22:10)
[2021-10-11] MEDS: Calcium Carb/Vitamin D 1 TABLET Tablet PO (09:00)
--- NOTE | 2021-10-11 11:45 | CASEMGMT ---
MIRTHA ALVARENGA assessment: Face to Face with patient for initial transition planning/care coordination assessment. MIRTHA ALVARENGA introduced self and role at [facility], pt voices understanding and consents to assessment. Pt is sitting up in bed in no distress on room air. Pt is A/Ox4 and answers all questions appropriately. Care providers, pharmacy, and demographics verified. 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 Pt's , Clyde Martinez, is HPOA. LNOK: Clyde Martinez, Living Arrangements: Pt lives with in 1 story home and states no concerns at home. Pt is independent with ADL's. Transportation: Pt drives self and states no transportation concerns. DME/HHC: Pt states no current DME or need for any further DME. Pt states no hx of HHC or SNF. Pt states no concerns with going home at time of discharge. 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 Pt states does not smoke cigarettes or drink ETOH. Pt voices no further concerns/needs. CM to follow for any further discharge planning/needs. Advised pt to ask for CM if any further questions/concerns/needs arise, voices understanding. Pt Goal: Home Plan[place] MIRTHA ALVARENGA
--- NOTE | 2021-10-11 13:24 | PN.HOSP_ITS ---
Subjective Subjective Feels well. Objective Data Objective Data Vital Signs: Vital Signs Temp Pulse Resp BP Pulse Ox 37.4 C H 112 H 18 107/49 L 97 10/11/21 10:05 10/11/21 10:05 10/11/21 10:05 10/11/21 10:05 10/11/21 10:05 Oxygen Delivery Method Room Air Weight: 57.8 kg Body Mass Index (BMI) 25.0 Intake & Output: Intake and Output for Last 24 Hours 10/09/21 10/10/21 10/11/21 23:59 23:59 23:59 Intake Total 1131 / 1131 1365 / 1365 Balance 1131 / 1131 1365 / 1365 Lab / Micro Data Result Diagrams: 10/11/21 08:00 10/11/21 08:00 Labs: Laboratory Results - last 24 hr 10/10/21 17:30: WBC 3.4 L, RBC 4.18 L, Hgb 11.8 L, Hct 37.0, MCV 88.5, MCH 28.2, MCHC 31.9 L, RDW Std Deviation 56.4 H, RDW Coeff of Leatha 17.8 H, Plt Count 366, MPV 10.0, Immature Gran % (Auto) 0.600, Neut % (Auto) 68.6, Lymph % (Auto) 6.8 L , [place] % (Auto) 16.0 H, Eos % (Auto) 6.8 H, Baso % (Auto) 1.2 H, Absolute Neuts (auto) 2.3, Absolute Lymphs (auto) 0.23 L, Nucleated RBC % 0, Differential Comment SEE COMMENT, Diff Path Review May foll, Platelet Estimate ADEQUATE, RBC Morphology N CHROM, Anisocytosis RARE 10/10/21 17:30: Sodium 135 L, Potassium 3.9, Chloride 101, Carbon Dioxide 28.0, Anion Gap 6, BUN 8, Creatinine 0.76, Estim Creat Clear Calc 57.96, Est GFR (MDRD) Af Amer 101, Est GFR (MDRD) Non-Af 83, BUN/Creatinine Ratio 10.6, Glucose 108 H, Calcium 8.9, Total Bilirubin 0.20, AST 28, ALT 36, Alkaline Phosphatase 234 H, Total Protein 7.6, Albumin 3.4, Globulin 4.2, Albumin/Globulin Ratio 0.8 L 10/10/21 17:30: PT 13.1, INR 1.1, APTT 32.3 10/10/21 17:30: Lactic Acid 1.3 10/10/21 18:35: Urine Color Yellow, Urine Clarity Clear, Urine pH 6.0, Ur Specific [place] 1.010, Urine Protein Negative, Urine Glucose (UA) Normal, Urine Ketones Negative, Urine Occult Blood Negative, Urine Nitrite Negative, Urine Bilirubin Negative, Urine Urobilinogen Normal, Ur Leukocyte Esterase Negative, Urine RBC 0 SEEN, Urine WBC 0 SEEN, Ur Squamous Epith Cells 0 SEEN, Urine Bacteria 0 SEEN, Urine Mucus 0 SEEN 10/10/21 20:09: COVID-19 (TIMUR) Negative 10/10/21 20:12: Phosphorus 2.5, Magnesium 1.9 10/10/21 20:12: Procalcitonin 0.10 H 10/10/21 22:10: MRSA (PCR) Negative 10/10/21 : Fluid Glucose 78 H 10/10/21 : Fluid Source THORACENTESIS, Fluid Color YELLOW, Fluid Appearance SL CLDY, Fluid WBC 0.085, Fluid RBC 0.005, Fluid Tot Cell Count 0.102 H, Fld Polynuclear WBCs # 0.004, Fld Polynuclear WBCs % 4.7, Fluid Mononuclear WBCs 0.081, Fld Mononuclear WBCs % 95.3, Fluid Neutrophils 10, Fluid Lymphocytes 16, Fluid Monocytes 72, Fluid Other Cells 2, Fl Pathologist Comment May follow, Fluid Comment 2 SEE COMMENT 10/11/21 08:00: WBC 2.3 L, RBC 3.48 L, Hgb 9.5 L, Hct 30.5 L, MCV 87.6, MCH 27.3, MCHC 31.1 L, RDW Std Deviation 55.1 H, RDW Coeff of Leatha 17.6 H, Plt Count 318, MPV 9.1, Immature Gran % (Auto) 0.400, Neut % (Auto) 46.4 L, Lymph % (Auto) 17.3 L, [place] % (Auto) 29.4 H, Eos % (Auto) 5.6 H, Baso % (Auto) 0.9, Absolute Neuts (auto) 1.1 L, Absolute Lymphs (auto) 0.40 L, Nucleated RBC % 0, Diff Path Review May 10/11/21 08:00: Sodium 138, Potassium 3.4 L, Chloride 105, Carbon Dioxide 27.0, Anion Gap 6, BUN 5 L, Creatinine 0.65, Estim Creat Clear Calc 86.08, Est GFR (MDRD) Af Amer 120, Est GFR (MDRD) Non-Af 99, BUN/Creatinine Ratio 7.7 L, Glucose 106, Calcium 7.9 L, Total Bilirubin 0.50, AST 18, ALT 27, Alkaline Phosphatase 184 H, Total Protein 6.2 L, Albumin 2.6 L, Globulin 3.6, Albumin/Globulin Ratio 0.7 L Micro: Microbiology 10/10/21 Unknown Fluid - Thoracentesis Fluid Gram Stain - Preliminary 10/10/21 Unknown Fluid - Thoracentesis Fluid Body Fluid Culture - Preliminary No growth-Final to follow 10/10/21 18:35 Urine, Clean Catch Urine Culture - Preliminary Culture exhibits no growth. 10/10/21 20:09 Mucosa - Nose Respiratory Panel (PCR) - Final RSV B 10/10/21 18:35 Urine, Clean Catch Legionella Antigen - Final 10/10/21 18:35 Urine, Clean Catch Streptococcus pneumoniae Antigen (M - Final 10/10/21 16:50 Mucosa - Nose Influenza Types A,B Direct FA (KLAUS) - Final 10/10/21 16:35 Nasal Secretion SARS-CoV-2 Antigen (Rapid) - Final Radiography Diagnostic Testing: Radiology Impression Chest X-Ray 10/10/21 17:30 IMPRESSION: Mild pulmonary edema is seen in the inferior aspect of the right upper lobe, question developing infiltrate in this region. Electronically Signed: Foreign Adrian MD at 18:19 EST , Service support , Physical Exam Const alert and no apparent distress Resp normal respiratory effort and no retractions Resp Narrative: RLL crackles. Cardio regular rate, regular rhythm, S1 normal heart sound and S2 normal heart sound GI normal to inspection, nondistended, normoactive bowel sounds, soft to palpation, non-tender and non-distended Assessment & Plan Assessment/Plan (1) Pneumonia: QUALIFIERS: Pneumonia type: due to unspecified organism Laterality: right Lung location: upper lobe of lung Qualified Code(s): J18.9 - Pneumonia, unspecified organism PLAN: 1. Pneumonia * doubt bacteria, suspect due solely to RSVB * monitor for now and follow up cultures, if cultures negative 10/12, then would DC abx * contniue vanc and pip/tazo 2. neutropenia * 2/2 chemotherapy * monitor 3. pleural effusion * had 60cc of fluid removed * may be from recent lobectomy. * no protein or LDH, so cannot calculate Light's criteria * outpt CXR 4. Metastatic Breast Cancer to Bone/Lung * follow up with Dr. Almonte 5. Anxiety: Will continue home ativan PRN reigmen. 6. GERD: Will continue home BID PPI. 7. DVT Prophylaxis: SCDs, lovenox. DW Pt's . Charges/Coding Visit Charges Inpatient E&M: 43063 Subs Hosp L2
[2021-10-12 02:25] VITALS: BP 103/58; PULSE 99; RESP 18; TEMP 36.6; O2SAT 92
[2021-10-12 05:23] LABS: Hematocrit 30.5 % (37-47); Hemoglobin 9.8 g/dL (12.0-15.0); Mean Corp Hgb Conc 32.1 g/dL (32-36); Mean Corpuscular Volume 87.1 fL (81-99); Mean Platelet Vol. 8.5 fl (6.2-12.0); Platelet Count 324 K/mm3 (150-450); RBC Distribution Width CV 17.3 % (11.6-14.6); RBC Distribution Width SD 54.8 fl (35.1-43.9); White Blood Count 2.6 K/mm3 (4.4-11.0)
[2021-10-12 05:50] LABS: Vancomycin, Trough Level 11.7 ug/mL (5.0-15.0)
[2021-10-12 05:51] LABS: ALB/GLOB Ratio 0.7 RATIO (0.9-2.4); AST(SGOT) 18 U/L (15-37); Alanine Aminotransfer ALT/SGPT 29 U/L (13-56); Albumin, Serum 2.6 g/dL (3.2-5.0); Alkaline Phosphatase 182 U/L (45-117); Anion Gap 5 (5-15); BUN 6 mg/dL (7-18); BUN/Creat Ratio 10.9 RATIO (10-20); Calcium,Total 8.6 mg/dL (8.5-10.1); Chloride 104 mmol/L (98-107); Creatinine, Serum 0.55 mg/dL (0.55-1.02); EST Glomerular Filtration Rate 120 mL/min (>60); Est Glom Filt Rate - Afr Amer 146 mL/min (>60); Estimated Creatinine Clearance 101.73 ml/min; Globulin 3.6 g/dL (2.2-4.2); Glucose 102 mg/dL (74-106); Potassium 3.9 mmol/L (3.5-5.1); Protein, Total 6.2 g/dL (6.4-8.2); Sodium Level 138 mmol/L (136-145)
--- NOTE | 2021-10-12 06:56 | PCM.RX.CS ---
Consult Pharmacy has been consulted to manage selected antiobiotic: Vancomycin Type of Consult: Follow-up Labs: Sodium 138 mmol/L (136-145) 10/12/21 05:12 Potassium 3.9 mmol/L (3.5-5.1) 10/12/21 05:12 Chloride 104 mmol/L (98-107) 10/12/21 05:12 Carbon Dioxide 29.0 mmol/L (21.0-32.0) 10/12/21 05:12 Anion Gap 5 (5-15) 10/12/21 05:12 BUN 6 mg/dL (7-18) L 10/12/21 05:12 Creatinine 0.55 mg/dL (0.55-1.02) 10/12/21 05:12 Est GFR (MDRD) Af Amer 146 mL/min (>60) 10/12/21 05:12 Est GFR (MDRD) Non-Af 120 mL/min (>60) 10/12/21 05:12 BUN/Creatinine Ratio 10.9 RATIO (10-20) 10/12/21 05:12 Glucose 102 mg/dL (74-106) 10/12/21 05:12 Vancomycin Trough 11.7 ug/mL (5.0-15.0) 10/12/21 05:12 Microbiology: Microbiology 10/11/21 08:12 Sputum, Expectorated/Coughed Gram Stain - Final 10/10/21 Unknown Fluid - Thoracentesis Fluid Gram Stain - Final 10/10/21 Unknown Fluid - Thoracentesis Fluid Body Fluid Culture - Preliminary No growth-Final to follow 10/10/21 18:35 Urine, Clean Catch Urine Culture - Preliminary Culture exhibits no growth. 10/10/21 20:09 Mucosa - Nose Respiratory Panel (PCR) - Final RSV B 10/10/21 18:35 Urine, Clean Catch Legionella Antigen - Final 10/10/21 18:35 Urine, Clean Catch Streptococcus pneumoniae Antigen (M - Final 10/10/21 16:50 Mucosa - Nose Influenza Types A,B Direct FA (KLAUS) - Final 10/10/21 16:35 Nasal Secretion SARS-CoV-2 Antigen (Rapid) - Final Goal Trough: 15-20 mcg/mL Pharmacy Plan for Drug Dosing: Pharmacy Service will continue to monitor and adjust dosing as required. TROUGH 11.7 AT 11 HOURS, INCREASE TO 1GM Q12H AND FOLLOW UP TROUGH IN 4 DOSES Follow-Up Labs: Trough Vancomycin Labs to be done on [date and time ordered]: 10/14 @ 0198
[2021-10-12 07:37] VITALS: BP 100/60; PULSE 91; RESP 18; TEMP 36.8; O2SAT 95
[2021-10-12] MEDS: Loperamide 2 MG Capsule PO ×4 (07:54→21:57)
[2021-10-12] MEDS: Calcium Carb/Vitamin D 1 TABLET Tablet PO (09:27)
[2021-10-12] MEDS: Pantoprazole Sodium 20 MG Tablet PO ×2 (09:27→21:35)
[2021-10-12] MEDS: Enoxaparin 40 MG/0.4 ML Syringe SC (09:28)
[2021-10-12] MEDS: Multivitamins,Therapeutic Tablet 1 TABLET PO (09:28)
[2021-10-12] MEDS: Potassium Chloride Oral Tablet 10 MEQ PO (09:28)
--- NOTE | 2021-10-12 11:46 | PN.HOSP_ITS ---
Subjective Subjective Feels good. Still with cough. On room air. Objective Data Objective Data Vital Signs: Vital Signs Temp Pulse Resp BP Pulse Ox 36.8 C 91 18 100/60 95 10/12/21 07:37 10/12/21 07:37 10/12/21 07:37 10/12/21 07:37 10/12/21 07:37 Oxygen Delivery Method Room Air Weight: 57.5 kg Body Mass Index (BMI) 25.0 Intake & Output: Intake and Output for Last 24 Hours 10/10/21 10/11/21 10/12/21 23:59 23:59 23:59 Intake Total 1131 / 1131 4380 / 4380 1228.75 / 1228.75 Output Total 2400 / 2400 Balance 1131 / 1131 1979 / 1979 1228.75 / 1228.75 Lab / Micro Data Result Diagrams: 10/12/21 05:12 10/12/21 05:12 Labs: Laboratory Results - last 24 hr 10/12/21 05:12: Vancomycin Trough 11.7 10/12/21 05:12: WBC 2.6 L, RBC 3.50 L, Hgb 9.8 L, Hct 30.5 L, MCV 87.1, MCH 28.0, MCHC 32.1, RDW Std Deviation 54.8 H, RDW Coeff of Leatha 17.3 H, Plt Count 324, MPV 8.5 10/12/21 05:12: Sodium 138, Potassium 3.9, Chloride 104, Carbon Dioxide 29.0, Anion Gap 5, BUN 6 L, Creatinine 0.55, Estim Creat Clear Calc 101.73, Est GFR (MDRD) Af Amer 146, Est GFR (MDRD) Non-Af 120, BUN/Creatinine Ratio 10.9, Glucose 102, Calcium 8.6, Total Bilirubin 0.30, AST 18, ALT 29, Alkaline Phosphatase 182 H, Total Protein 6.2 L, Albumin 2.6 L, Globulin 3.6, Albumin/Globulin Ratio 0.7 L Micro: Microbiology 10/10/21 Unknown Fluid - Thoracentesis Fluid Gram Stain - Final 10/10/21 Unknown Fluid - Thoracentesis Fluid Body Fluid Culture - Preliminary 10/10/21 18:35 Urine, Clean Catch Urine Culture - Final Culture exhibits no growth. 10/11/21 08:12 Sputum, Expectorated/Coughed Gram Stain - Final 10/10/21 20:09 Mucosa - Nose Respiratory Panel (PCR) - Final RSV B 10/10/21 18:35 Urine, Clean Catch Legionella Antigen - Final 10/10/21 18:35 Urine, Clean Catch Streptococcus pneumoniae Antigen (M - Final 10/10/21 16:50 Mucosa - Nose Influenza Types A,B Direct FA (KLAUS) - Final 10/10/21 16:35 Nasal Secretion SARS-CoV-2 Antigen (Rapid) - Final Physical Exam Neck no lymphadenopathy Resp normal respiratory effort and no retractions Resp Narrative: crackle in RLL Cardio regular rate and regular rhythm Assessment & Plan Assessment/Plan (1) Pneumonia: QUALIFIERS: Pneumonia type: due to unspecified organism Laterality: right Lung location: upper lobe of lung Qualified Code(s): J18.9 - Pneumonia, unspecified organism PLAN: 1. Pneumonia * doubt bacteria, suspect due solely to RSVB * monitor for now and follow up cultures, if cultures negative 10/12, then would DC abx * contniue vanc and pip/tazo * SCx gram stain showing multiple organisms. Likely contaminant. Follow up cultures to ensure sterility. If negative, then would DC abx. 2. neutropenia * 2/2 chemotherapy * monitor 3. pleural effusion * had 60cc of fluid removed * may be from recent lobectomy. * no protein or LDH, so cannot calculate Light's criteria * outpt CXR for follow up 4. Metastatic Breast Cancer to Bone/Lung * follow up with Dr. Almonte 5. Anxiety: Will continue home ativan PRN reigmen. 6. GERD: Will continue home BID PPI. 7. DVT Prophylaxis: SCDs, lovenox. DW Pt's . Charges/Coding Visit Charges Inpatient E&M: 77448 Subs Hosp L2
[2021-10-12 13:24] VITALS: BP 96/57; PULSE 92; RESP 16; TEMP 36.7; O2SAT 94
[2021-10-12] MEDS: Vancomycin IV 1,000 MG/200 ML BAG 200 MG IV (17:29)
[2021-10-12 17:35] VITALS: BP 93/56; PULSE 94; RESP 16; TEMP 36.6; O2SAT 96
[2021-10-12 21:39] VITALS: BP 102/62; PULSE 101; RESP 18; TEMP 37.2; O2SAT 95
[2021-10-13 04:30] VITALS: BP 99/54; PULSE 88; RESP 18; TEMP 37.2; O2SAT 94
[2021-10-13] MEDS: Vancomycin IV 1,000 MG/200 ML BAG 200 MG IV ×2 (05:34→17:21)
[2021-10-13] MEDS: 0.9% Saline Lock 10 ML Syringe IV (05:35)
[2021-10-13 06:03] LABS: Absolute Neutrophil Count 1.8 X10^3/uL (2.0-7.7); Basophil# 0.02 X10^3/uL; Basophil% 0.6 % (0-1); Eosinophil# 0.29 X10^3/uL; Eosinophils% 8.9 % (0-5); Hematocrit 30.9 % (37-47); Hemoglobin 9.4 g/dL (12.0-15.0); Lymphocyte % 18.3 % (19-41); Mean Corp Hgb Conc 30.4 g/dL (32-36); Mean Corpuscular Volume 88.8 fL (81-99); Mean Platelet Vol. 8.9 fl (6.2-12.0); Monocyte# 0.53 X10^3/uL; Monocyte% 16.2 % (0-10); NRBC Flagged by Analyzer 0 % (0-5); Neutrophil # 1.81 X10^3/uL (2.7-7.7); Neutrophil % 55.4 % (47-70); POSITIVE DIFFERENTIAL YES; POSITIVE MORPHOLOGY YES; Platelet Count 351 K/mm3 (150-450); RBC Distribution Width CV 17.3 % (11.6-14.6); RBC Distribution Width SD 56.2 fl (35.1-43.9); Red Blood Count 3.48 M/mm3 (4.2-5.4); White Blood Count 3.3 K/mm3 (4.4-11.0)
[2021-10-13 06:24] LABS: Differential Indicated SCAN CRITERIA MET
[2021-10-13] MEDS: Loperamide 2 MG Capsule PO ×3 (06:47→21:26)
[2021-10-13 06:54] LABS: Anion Gap 6 (5-15); BUN 7 mg/dL (7-18); Calcium,Total 8.6 mg/dL (8.5-10.1); Chloride 103 mmol/L (98-107); EST Glomerular Filtration Rate 91 mL/min (>60); Est Glom Filt Rate - Afr Amer 110 mL/min (>60); Estimated Creatinine Clearance 62.92 ml/min; Glucose 85 mg/dL (74-106); Potassium 3.8 mmol/L (3.5-5.1); Sodium Level 139 mmol/L (136-145)
[2021-10-13] MEDS: Potassium Chloride Oral Tablet 10 MEQ PO (09:45)
[2021-10-13] MEDS: Multivitamins,Therapeutic Tablet 1 TABLET PO (09:45)
[2021-10-13] MEDS: Pantoprazole Sodium 20 MG Tablet PO ×2 (09:46→21:26)
[2021-10-13] MEDS: Calcium Carb/Vitamin D 1 TABLET Tablet PO (09:46)
[2021-10-13 10:00] VITALS: RESP 20; O2SAT 95
[2021-10-13 10:11] VITALS: BP 112/60; PULSE 103; RESP 20; TEMP 36.7; O2SAT 95
--- NOTE | 2021-10-13 10:15 | PCM.PN.HOSP ---
Subjective Subjective Doing well, no issues overnight. She still having some coughing but otherwise the fever has resolved. Objective Data Objective Data Vital Signs: Vital Signs Temp Pulse Resp BP Pulse Ox 98.1 F 103 H 20 H 112/60 95 10/13/21 10:11 10/13/21 10:11 10/13/21 10:11 10/13/21 10:11 10/13/21 10:11 Oxygen Delivery Method Room Air Weight: 126 lb 8.725 oz Body Mass Index (BMI) 25.0 Intake & Output: Intake and Output for Last 24 Hours 10/12/21 10/13/21 10/14/21 03:59 03:59 03:59 Intake Total 4180 / 4180 3511.50 / 3511.50 384.25 / 384.25 Output Total 2400 / 2400 Balance 1780 / 1780 3511.50 / 3511.50 384.25 / 384.25 Lab / Micro Data Result Diagrams: 10/13/21 05:50 10/13/21 05:50 Labs: Laboratory Results - last 24 hr 10/10/21 : Fluid Source THORACENTESIS, Fluid Color YELLOW, Fluid Appearance SL CLDY, Fluid WBC 0.085, Fluid RBC 0.005, Fluid Tot Cell Count 0.102 H, Fld Polynuclear WBCs # 0.004, Fld Polynuclear WBCs % 4.7, Fluid Mononuclear WBCs 0.081, Fld Mononuclear WBCs % 95.3, Fluid Neutrophils 10, Fluid Lymphocytes 16, Fluid Monocytes 72, Fluid Other Cells 2, Fl Pathologist Comment May follow, Fluid Comment 2 SEE COMMENT 10/13/21 05:50: WBC 3.3 L, RBC 3.48 L, Hgb 9.4 L, Hct 30.9 L, MCV 88.8, MCH 27.0, MCHC 30.4 L D, RDW Std Deviation 56.2 H, RDW Coeff of Leatha 17.3 H, Plt Count 351, MPV 8.9, Immature Gran % (Auto) 0.600, Neut % (Auto) 55.4, Lymph % (Auto) 18.3 L, [place] % (Auto) 16.2 H, Eos % (Auto) 8.9 H, Baso % (Auto) 0.6, Absolute Neuts (auto) 1.8 L, Absolute Lymphs (auto) 0.60 L, Nucleated RBC % 0, Diff Path Review March10/13/21 05:50: Sodium 139, Potassium 3.8, Chloride 103, Carbon Dioxide 30.0, Anion Gap 6, BUN 7, Creatinine 0.70, Estim Creat Clear Calc 62.92, Est GFR (MDRD) Af Amer 110, Est GFR (MDRD) Non-Af 91, BUN/Creatinine Ratio 10.0, Glucose 85, Calcium 8.6 Micro: Microbiology 10/10/21 Unknown Fluid - Thoracentesis Fluid Gram Stain - Final 10/10/21 Unknown Fluid - Thoracentesis Fluid Body Fluid Culture - Preliminary Staphylococcus aureus 10/10/21 Unknown Fluid - Thoracentesis Fluid Anaerobic Culture - Preliminary No growth in 48 hours. 10/10/21 18:35 Urine, Clean Catch Urine Culture - Final Culture exhibits no growth. 10/11/21 08:12 Sputum, Expectorated/Coughed Gram Stain - Final 10/10/21 20:09 Mucosa - Nose Respiratory Panel (PCR) - Final RSV B 10/10/21 18:35 Urine, Clean Catch Legionella Antigen - Final 10/10/21 18:35 Urine, Clean Catch Streptococcus pneumoniae Antigen (M - Final 10/10/21 16:50 Mucosa - Nose Influenza Types A,B Direct FA (KLAUS) - Final 10/10/21 16:35 Nasal Secretion SARS-CoV-2 Antigen (Rapid) - Final Physical Exam Const alert, oriented x3 and no apparent distress General Appearance: cooperative HEENT normocephalic and moist oral mucous membranes Eyes PERRL, EOMs intact bilaterally and conjunctivae normal Neck supple and no JVD Resp normal respiratory effort, no retractions and no use of accessory muscles Auscultation: diminished lung sounds; Negative for crackles, rales, rhonchi or wheezes Cardio regular rhythm, S1 normal heart sound, S2 normal heart sound and no murmurs Rate: tachycardic GI soft to palpation, non-tender and non-distended; Negative for hepatosplenomegaly Extremity no clubbing, cyanosis or edema Skin no rashes or lesions noted Neuro no focal motor deficits and no sensory deficits noted Psych affect normal Appearance: appropriate Assessment & Plan Assessment/Plan (1) Pneumonia: QUALIFIERS: Pneumonia type: due to unspecified organism Laterality: right Lung location: upper lobe of lung Qualified Code(s): J18.9 - Pneumonia, unspecified organism PLAN: 1. Febrile illness secondary to RSV B with concern for possible bacterial pneumonia ?Had a thoracentesis on admission and it is growing a staph aureus, MRSA PCR was negative ?Continue with IV antibiotics until sensitivities given the fact that she has a history of metastatic breast cancer and is on chemotherapy, her last absolute neutrophil count was 1800 ?She is no longer febrile and she is on room air. ?Pleural effusion was drained with approximately 60 cc of fluid 2. Anxiety ?Stable ?Continue with her as needed Ativan 3. GERD ?Stable ?Continue with PPI DVT: Lovenox Charges/Coding Visit Charges Inpatient E&M: 90036 Subs Hosp L2
[2021-10-13] MEDS: BENZOCAINE/MENTHOL 1 LOZENGE MUCOUS MEM (13:35)
[2021-10-13 13:43] VITALS: BP 103/60; PULSE 103; RESP 18; TEMP 36.7; O2SAT 94
[2021-10-13 15:43] VITALS: RESP 18
[2021-10-13] MEDS: Enoxaparin 40 MG/0.4 ML Syringe SC (16:00)
[2021-10-13 21:15] VITALS: BP 103/59; PULSE 100; RESP 18; TEMP 37.1; O2SAT 93
[2021-10-14 02:52] VITALS: BP 108/55; PULSE 88; RESP 18; TEMP 36.9; O2SAT 93
[2021-10-14] MEDS: Vancomycin IV 1,000 MG/200 ML BAG 200 MG IV (05:50)
[2021-10-14] MEDS: Loperamide 2 MG Capsule PO ×2 (05:52→10:17)
[2021-10-14 06:17] LABS: Absolute Lymphocyte Count 0.79 X10^3/uL (0.83-4.51); Absolute Neutrophil Count 2.6 X10^3/uL (2.0-7.7); Basophil# 0.03 X10^3/uL; Basophil% 0.7 % (0-1); Eosinophil# 0.39 X10^3/uL; Eosinophils% 8.9 % (0-5); Hematocrit 33.1 % (37-47); Hemoglobin 10.5 g/dL (12.0-15.0); Lymphocyte # 0.79 X10^3/ul (0.83-4.51); Mean Corp Hgb Conc 31.7 g/dL (32-36); Mean Corpuscular Hgb 27.9 pg (27.0-32.0); Mean Corpuscular Volume 87.8 fL (81-99); Mean Platelet Vol. 8.8 fl (6.2-12.0); Monocyte# 0.53 X10^3/uL; Monocyte% 12.1 % (0-10); NRBC Flagged by Analyzer 0 % (0-5); Neutrophil # 2.63 X10^3/uL (2.7-7.7); Neutrophil % 59.8 % (47-70); Platelet Count 415 K/mm3 (150-450); RBC Distribution Width CV 17.4 % (11.6-14.6); RBC Distribution Width SD 54.8 fl (35.1-43.9); Red Blood Count 3.77 M/mm3 (4.2-5.4); White Blood Count 4.4 K/mm3 (4.4-11.0)
[2021-10-14 07:00] LABS: Vancomycin, Trough Level 15.2 ug/mL (5.0-15.0)
--- NOTE | 2021-10-14 07:17 | PCM.RX.CS ---
Consult Pharmacy has been consulted to manage selected antiobiotic: Vancomycin Type of Consult: Follow-up Suspected Infection: Pneumonia Labs: Sodium 139 mmol/L (136-145) 10/13/21 05:50 Potassium 3.8 mmol/L (3.5-5.1) 10/13/21 05:50 Chloride 103 mmol/L (98-107) 10/13/21 05:50 Carbon Dioxide 30.0 mmol/L (21.0-32.0) 10/13/21 05:50 Anion Gap 6 (5-15) 10/13/21 05:50 BUN 7 mg/dL (7-18) 10/13/21 05:50 Creatinine 0.70 mg/dL (0.55-1.02) 10/13/21 05:50 Est GFR (MDRD) Af Amer 110 mL/min (>60) 10/13/21 05:50 Est GFR (MDRD) Non-Af 91 mL/min (>60) 10/13/21 05:50 BUN/Creatinine Ratio 10.0 RATIO (10-20) 10/13/21 05:50 Glucose 85 mg/dL (74-106) 10/13/21 05:50 Vancomycin Trough 15.2 ug/mL (5.0-15.0) H 10/14/21 05:30 Microbiology: Microbiology 10/10/21 16:45 Blood Culture (Wb) - Right Hand Blood Culture - Preliminary No growth in 48 hours. 10/10/21 16:50 Blood Culture (Wb) - Right Hand Blood Culture - Preliminary No growth in 48 hours. 10/11/21 08:12 Sputum, Expectorated/Coughed Gram Stain - Final 10/11/21 08:12 Sputum, Expectorated/Coughed Respiratory Culture - Preliminary 10/10/21 Unknown Fluid - Thoracentesis Fluid Gram Stain - Final 10/10/21 Unknown Fluid - Thoracentesis Fluid Body Fluid Culture - Preliminary Staphylococcus aureus 10/10/21 Unknown Fluid - Thoracentesis Fluid Anaerobic Culture - Preliminary No growth in 48 hours. 10/10/21 18:35 Urine, Clean Catch Urine Culture - Final Culture exhibits no growth. 10/10/21 20:09 Mucosa - Nose Respiratory Panel (PCR) - Final RSV B 10/10/21 18:35 Urine, Clean Catch Legionella Antigen - Final 10/10/21 18:35 Urine, Clean Catch Streptococcus pneumoniae Antigen (M - Final 10/10/21 16:50 Mucosa - Nose Influenza Types A,B Direct FA (KLAUS) - Final 10/10/21 16:35 Nasal Secretion SARS-CoV-2 Antigen (Rapid) - Final Goal Trough: 15-20 mcg/mL Pharmacy Plan for Drug Dosing: VANCOMYCIN LEVEL RECEIVED Current Vancomycin Dose: 1000mg q12h (,18) Number of Doses Received: x3 of current dose Vancomycin Level: 15.2 Hours Since Last Dose: 12 Renal Function: SrCr 0.7 Renal Function Trend: Stable Lab/Micro: Vancomycin Plan/Comments: trough resulted within the ordered goal trough range of 15-20. recommend continuing current dose of 1000mg q12h. trough before the 4th dose Pending Level: 10/16/21 at 0530 Pharmacy Service will continue to monitor and adjust dosing as required. Follow-Up Labs: Trough Vancomycin - 10/16/21 at 0530
[2021-10-14 07:30] VITALS: O2SAT 95
[2021-10-14] MEDS: Pantoprazole Sodium 20 MG Tablet PO (08:03)
[2021-10-14] MEDS: Potassium Chloride Oral Tablet 10 MEQ PO (09:02)
[2021-10-14] MEDS: Multivitamins,Therapeutic Tablet 1 TABLET PO (09:02)
[2021-10-14] MEDS: Enoxaparin 40 MG/0.4 ML Syringe SC (09:02)
[2021-10-14] MEDS: proMETHazine 25 MG Tablet PO (09:02)
[2021-10-14] MEDS: Calcium Carb/Vitamin D 1 TABLET Tablet PO (09:02)
[2021-10-14 09:10] VITALS: BP 101/55; PULSE 103; RESP 18; TEMP 36.5; O2SAT 94
[2021-10-14 10:00] VITALS: RESP 18
--- NOTE | 2021-10-14 11:13 | PCM.DC ---
Discharge Instructions Diet Discharge Diet: No restrictions Activity Discharge Activity: Return to Normal Activity Dressing / Incision Call your doctor if you observe: Fever of 101 or Higher, Shortness of breath, Dizziness, Fainting spells, Swelling in the ankles, Chest pain and Increased palpitations (irregular heartbeat) Follow Up Care Test Results: Test results from this visit will be discussed in further detail at your follow-up appointment, if applicable. Discharge Plan Admission Admit Date/Time: 10/10/21 19:56 Attending Provider: Zoran Fournier Primary Care Provider: Lawrence Ramirez Instructions Additional Instructions / Restrictions: Doxycycline with your calcium carbonate as it can cause an interaction preventing the absorption of doxycycline. Discharge Orders/Prescriptions Prescriptions: New doxycycline hyclate 100 mg capsule 100 mg PO BID 14 Days Qty: 28 RF: 0 Continued calcium carbonate-vitamin D3 1 EACH tablet 1 ea PO DAILY RF: 0 multivitamin with folic acid 1 TABLET tablet 1 tab PO DAILY RF: 0 pantoprazole 20 MG tablet 40 mg PO DAILY RF: 0 lorazepam 0.5 MG tablet 0.5 mg PO DAILY PRN PRN (Reason: Anxiety) RF: 0 promethazine 25 MG tablet 25 mg PO PRN PRN (Reason: Nausea) RF: 0 melatonin 5 MG capsule 5 mg PO PRN PRN (Reason: Sleep) RF: 0 hydrocodone-homatropine 5 ML syrup 5 ml PO Q4H PRN PRN (Reason: Cough) RF: 0 potassium chloride 10 mEq tablet,ER particles/crystals 10 meq PO DAILY RF: 0 budesonide-formoterol [Symbicort] 160-4.5 mcg/actuation HFA aerosol inhaler 2 inh INHALATION BID RF: 0 Referrals / Follow Up: Lawrence Ramirez MD [Primary Care Provider] - Within 1 Week Shaji Almonte DO [STAFF PHYSICIAN] - 10/22/21 10:45 am Disposition Disposition (needs filled in before D/C Order can be placed): Home, Self Care
--- NOTE | 2021-10-14 11:22 | DS.PCM_ITS ---
Providers Date of Admission: 10/10/21 Primary Care Physician: Dr. Lawrence Ramirez MD Reason For Visit: FEVER, ? PNA Diagnosis Discharge Diagnosis (1) Pneumonia: Status: Acute Code(s): J18.9 - Pneumonia, unspecified organism Qualifiers: Pneumonia type: due to unspecified organism Laterality: right Lung location: upper lobe of lung Qualified Code(s): J18.9 - Pneumonia, unspecified organism Medications at Discharge Home Medications calcium carbonate-vitamin D3 1 ea PO DAILY 03/10/17 multivitamin with folic acid 1 tab PO DAILY 03/10/17 hydrocodone-homatropine 5 ml PO Q4H PRN PRN 12/26/20 lorazepam 0.5 mg PO DAILY PRN PRN 12/26/20 melatonin 5 mg PO PRN PRN 12/26/20 pantoprazole 40 mg PO DAILY 12/26/20 promethazine 25 mg PO PRN PRN 12/26/20 budesonide-formoterol [Symbicort] 2 inh INHALATION BID 10/10/21 potassium chloride 10 meq PO DAILY 10/10/21 albuterol sulfate 1 puff INHALATION Q6H PRN #6.7 g 10/14/21 doxycycline hyclate 100 mg PO BID 14 Days #28 cap 10/14/21 Hospital Course Operations None Procedures Thoracentesis Summary of Care Provided Minutes Spent on Discharge: 45 Hospital Course: Per HPI: The patient is a 61 y/o F w/ PMHx: Hx goiter, GERD, Anxiety Metastatic Breast CA (lung/bone) following with Dr. Almonte s/p Major mastectomy and partial lobectomy with recent pleural effusion suspicious for malignant effusion who presents to the [facility] ED on 10/10/21 with history of thoracentesis on day of presentation with onset of fever up to 101.6 following with last chemotherapy 9 days prior with URI type symptoms including congestion, rhinorrhea and sore throat ongoing for the last week. Patient has been having recent cough, unchanged from prior with no productive symptoms. Patient has had her COVID vaccination and booster. Work-up in the ED included T initially 101.5, heart rate 129, BP 100/65, respiratory rate 20, 100% on room air with negative orthostatic vital signs, most recent set T 99, heart rate 110, BP 118/78, respiratory rate 18, 98% on room air, CBC with WBC 3.4, hemoglobin 1.8, platelets 366 with lymphopenia and no evidence of neutropenia, unremarkable coags, CMP with sodium 135, glucose 108, lactic acid 1.3, unremarkable hepatic profile aside alk phos 234, blood culture x2 pending per ED, negative rapid influenza panel, negative rapid Covid antigen, UA unremarkable with urine culture pending per ED, chest x-ray with mild pulmonary edema in the inferior aspect of the right upper lobe with questionable developing infiltrate in this region, evidence postsurgical volume loss small to moderate-sized pleural e ffusion and architectural distortion of the right lung, left lung remains clear, right mediastinal rotation unchanged from prior, right chest port and catheter in place, recent thoracentesis fluid with total cell count 0.102 with cultures pending. In the ED patient ministered normal saline bolus, cefepime and vancomycin. Hospital Course: 1. Febrile illness secondary to RSV B with infected pleural fluid with MSSA ?Had a thoracentesis on admission and it is growing a staph aureus, MRSA PCR was negative ?Continue with IV antibiotics until sensitivities given the fact that she has a history of metastatic breast cancer and is on chemotherapy, her last absolute neutrophil count was 1800 ?She is no longer febrile and she is on room air. ?Pleural effusion was drained with approximately 60 cc of fluid ?The pleural fluid came back with MSSA. I did discuss this finding with her oncologist so he is aware, she has received 4 days of vancomycin and Zosyn and will be transitioned to 14 days of p.o. doxycycline twice daily. Her neutropenia has resolved and she has remained afebrile. We will hold off on any steroids for RSV but will provide her with an albuterol inhaler on discharge. I did discuss with her the plan for discharge today and she expressed understanding of the risk benefits of going home and would like to go home today. 2. Anxiety ?Stable ?Continue with her as needed Ativan 3. GERD ?Stable ?Continue with PPI Physical Exam Const alert, oriented x3 and no apparent distress General Appearance: cooperative HEENT normocephalic and moist oral mucous membranes Eyes PERRL, EOMs intact bilaterally and conjunctivae normal Neck supple and no JVD Resp normal respiratory effort, no retractions and no use of accessory muscles Auscultation: diminished lung sounds; Negative for crackles, rales, rhonchi or wheezes Cardio regular rhythm, S1 normal heart sound, S2 normal heart sound and no murmurs Rate: tachycardic GI soft to palpation, non-tender and non-distended; Negative for hepatosplenomegaly Extremity no clubbing, cyanosis or edema Skin no rashes or lesions noted Neuro no focal motor deficits and no sensory deficits noted Psych affect normal Appearance: appropriate Weight / BMI Weight Weight: 131 lb 9.855 oz Body Mass Index (BMI) 25.0 ABG / Lab / Microbiology Data Result Diagrams: 10/14/21 05:51 10/13/21 05:50 Laboratory: Laboratory Results - last 24 hr 10/14/21 05:30: Vancomycin Trough 15.2 H 10/14/21 05:51: WBC 4.4, RBC 3.77 L, Hgb 10.5 L, Hct 33.1 L, MCV 87.8, MCH 27.9, MCHC 31.7 L, RDW Std Deviation 54.8 H, RDW Coeff of [place] 17.4 H, Plt Count 415, MPV 8.8, Immature Gran % (Auto) 0.500, Neut % (Auto) 59.8, Lymph % (Auto) 18.0 L , [place] % (Auto) 12.1 H, Eos % (Auto) 8.9 H, Baso % (Auto) 0.7, Absolute Neuts (auto) 2.6, Absolute Lymphs (auto) 0.79 L, Nucleated RBC % 0 Microbiology: Microbiology 10/11/21 08:12 Sputum, Expectorated/Coughed Gram Stain - Final 10/11/21 08:12 Sputum, Expectorated/Coughed Respiratory Culture - Final Mixed normal respiratory eugenia. No Streptococcus pneumoniae, beta-hemolytic Streptococcus or Staphylococcus aureus isolated. 10/10/21 Unknown Fluid - Thoracentesis Fluid Gram Stain - Final 10/10/21 Unknown Fluid - Thoracentesis Fluid Body Fluid Culture - Final Staphylococcus aureus 10/10/21 Unknown Fluid - Thoracentesis Fluid Anaerobic Culture - Preliminary No growth in 48 hours. 10/10/21 16:45 Blood Culture (Wb) - Right Hand Blood Culture - Preliminary No growth in 48 hours. 10/10/21 16:50 Blood Culture (Wb) - Right Hand Blood Culture - Preliminary No growth in 48 hours. 10/10/21 18:35 Urine, Clean Catch Urine Culture - Final Culture exhibits no growth. 10/10/21 20:09 Mucosa - Nose Respiratory Panel (PCR) - Final RSV B 10/10/21 18:35 Urine, Clean Catch Legionella Antigen - Final 10/10/21 18:35 Urine, Clean Catch Streptococcus pneumoniae Antigen (M - Final 10/10/21 16:50 Mucosa - Nose Influenza Types A,B Direct FA (KLAUS) - Final 10/10/21 16:35 Nasal Secretion SARS-CoV-2 Antigen (Rapid) - Final D/C Instructions Discharge Diet: No restrictions Call your doctor if you observe: Fever of 101 or Higher, Shortness of breath, Dizziness, Fainting spells, Swelling in the ankles, Chest pain and Increased palpitations (irregular heartbeat) Meaningful Use Info Meaningful Use Diagnoses (Choose all that apply): None applicable Discharge Plan Admission Admit Date/Time: 10/10/21 19:56 Attending Provider: Zoran Fournier Primary Care Provider: Lawrence Ramirez Instructions Additional Instructions / Restrictions: Doxycycline with your calcium carbonate as it can cause an interaction preventing the absorption of doxycycline. Discharge Orders/Prescriptions Prescriptions: New doxycycline hyclate 100 mg capsule 100 mg PO BID 14 Days Qty: 28 RF: 0 albuterol sulfate 90 mcg/actuation HFA aerosol inhaler 1 puff inhalation Q6H PRN (Reason: shortness of breath or wheezing) Qty: 6.7 RF: 0 Continued calcium carbonate-vitamin D3 1 EACH tablet 1 ea PO DAILY RF: 0 multivitamin with folic acid 1 TABLET tablet 1 tab PO DAILY RF: 0 pantoprazole 20 MG tablet 40 mg PO DAILY RF: 0 lorazepam 0.5 MG tablet 0.5 mg PO DAILY PRN PRN (Reason: Anxiety) RF: 0 promethazine 25 MG tablet 25 mg PO PRN PRN (Reason: Nausea) RF: 0 melatonin 5 MG capsule 5 mg PO PRN PRN (Reason: Sleep) RF: 0 hydrocodone-homatropine 5 ML syrup 5 ml PO Q4H PRN PRN (Reason: Cough) RF: 0 potassium chloride 10 mEq tablet,ER particles/crystals 10 meq PO DAILY RF: 0 budesonide-formoterol [Symbicort] 160-4.5 mcg/actuation HFA aerosol inhaler 2 inh INHALATION BID RF: 0 Referrals / Follow Up: Lawrence Ramirez MD [Primary Care Provider] - Within 1 Week Shaji Almonte DO [STAFF PHYSICIAN] - 10/22/21 10:45 am Disposition Disposition (needs filled in before D/C Order can be placed): Home, Self Care Charges/Coding Visit Charges Inpatient E&M: 31286 Disch Hosp
[2021-10-14] MEDS: 0.9% Saline Lock 10 ML Syringe IV ×2 (12:32→12:33)
[2021-10-14 13:00] VITALS: BP 101/55; PULSE 103; RESP 18; TEMP 36.5; O2SAT 94
[2021-10-14 16:01] LABS: pH, Body Fluid 11254 7.4 (Not Estab.)
[2021-10-15 08:59] LABS: Pathologist Comment/Body Fluid Reviewed
[2021-10-15 09:11] LABS: Pathologist Review Reviewed
[2021-10-15 09:17] LABS: Pathologist Review Reviewed
[2021-10-15 10:16] LABS: Pathologist Review Reviewed
== END 2021-10-14 13:07 | disposition home or self-care (01) | DRG 194 ==
LOC: ED 19:44 → MS2 20:09
PROVIDERS: Admitting Provider Family Medicine; Emergency Provider Emergency Medicine; PCP Family Medicine; Visit Provider Family Medicine
DX: J12.1 Respiratory syncytial virus pneumonia (principal); J91.8 Pleural effusion in other conditions classified elsewhere; J81.1 Chronic pulmonary edema; C78.01 Secondary malignant neoplasm of right lung; C79.51 Secondary malignant neoplasm of bone; B95.61 Methicillin susceptible Staphylococcus aureus infection as the cause of diseases classified elsewhere; D70.1 Agranulocytosis secondary to cancer chemotherapy; R50.81 Fever presenting with conditions classified elsewhere; C50.912 Malignant neoplasm of unspecified site of left female breast; Z17.1 Estrogen receptor negative status [ER-]; K21.9 Gastro-esophageal reflux disease without esophagitis; E04.9 Nontoxic goiter, unspecified; F41.9 Anxiety disorder, unspecified; T45.1X5A Adverse effect of antineoplastic and immunosuppressive drugs, initial encounter; D64.81 Anemia due to antineoplastic chemotherapy; Z90.12 Acquired absence of left breast and nipple; Z79.899 Other long term (current) drug therapy; Z23 Encounter for immunization
CPT/HCPCS: 36415; 36591; 71045; 80048; 80053; 80202; 81001; 82945; 83605; 83735; 83986; 84100; 84145; 85025; 85027; 85610; 85730; 87040; 87070; 87075; 87077; 87086; 87186; 87205; 87426; 87449; 87633; 87635; 87641; 87804; 89050; 93005; 94640; 99251; 99284; J7040; J7050; U0005; A4216; G0463; U0003

== ENCOUNTER → 2021-11-06 | Outpatient (CLI) | payer OTHER, SELFPAY ==
[2021-11-06 13:25] LABS: ALB/GLOB Ratio 0.8 RATIO (0.9-2.4); AST(SGOT) 23 U/L (15-37); Alanine Aminotransfer ALT/SGPT 36 U/L (13-56); Albumin, Serum 3.1 g/dL (3.2-5.0); Alkaline Phosphatase 180 U/L (45-117); Anion Gap 4 (5-15); BUN 16 mg/dL (7-18); BUN/Creat Ratio 22.9 RATIO (10-20); Calcium,Total 8.9 mg/dL (8.5-10.1); Chloride 105 mmol/L (98-107); EST Glomerular Filtration Rate 91 mL/min (>60); Est Glom Filt Rate - Afr Amer 110 mL/min (>60); Globulin 3.7 g/dL (2.2-4.2); Glucose 105 mg/dL (74-106); Protein, Total 6.8 g/dL (6.4-8.2); Sodium Level 138 mmol/L (136-145)
== END | disposition home or self-care (01) ==
LOC: LABSPEC 12:36
PROVIDERS: PCP Family Medicine; Referring Provider Internal Medicine Hematology & Oncology; Visit Provider Internal Medicine Hematology & Oncology
DX: C50.612 Malignant neoplasm of axillary tail of left female breast (principal); Z17.1 Estrogen receptor negative status [ER-]
CPT/HCPCS: 80053

== ENCOUNTER → 2021-12-24 | Outpatient (CLI) | payer OTHER, SELFPAY | END | disposition home or self-care (01) | PROVIDERS: PCP Family Medicine; Referring Provider Internal Medicine Hematology & Oncology; Visit Provider Internal Medicine Hematology & Oncology | DX: C50.512 Malignant neoplasm of lower-outer quadrant of left female breast (principal); C79.51 Secondary malignant neoplasm of bone; C78.01 Secondary malignant neoplasm of right lung; Z17.0 Estrogen receptor positive status [ER+] | CPT/HCPCS: 78815; A9552 ==

== ENCOUNTER 2022-02-07 14:41 | Emergency (ER) | payer OTHER, SELFPAY ==
[2022-02-07 14:42] VITALS: BP 128/79; PULSE 124; RESP 18; TEMP 36.3; O2SAT 96; BMI 25.4
--- NOTE | 2022-02-07 15:13 | EKG12_ITS ---
Test Reason : Blood Pressure : / mmHG Vent. Rate : 110 BPM Atrial Rate : 110 BPM P-R Int : 138 ms QRS Dur : 074 ms QT Int : 322 ms P-R-T Axes : 040 -19 051 degrees QTc Int : 435 ms Sinus tachycardia Otherwise normal ECG Confirmed by JAMA GUNTER, LENCHO ([id number]), news videotape editor RADHA PATEL ([id number]) on 02/09/2022 11:37:46 A M Referred By: HOS[facility]IN Confirmed By:SIDDHARTH YUN MD
--- NOTE | 2022-02-07 15:14 | EX.ED.DYSGE1 ---
HPI History of Present Illness Chief Complaint: Fever Informant: patient and spouse/S.O. Narrative Narrative: Presents with spouse for evaluation fever 101.4 temporal 2 PM today. No antipyretics taken. History of metastatic breast cancer recurrent followed by Dr. Almonte. Initial diagnosed 2016. Recurrent 2018. Last chemo treatment on December 18. It was stopped due to increasing growth to the bone in her left hip region. Just finished 10 days of radiation treatment last treatment was 5 days ago. Mastectomy in the past partial right lower lobectomy in June. Had a subsequent infection hospitalization at that time. Today she states felt wiped out. Yesterday started a moist cough. No diarrhea. No urinary symptoms. She states in June had pneumonia and RSV. COVID vaccinated with the booster. Reports since her last chemo treatment has been tachycardic, is on metoprolol this, states typical heart rate has been in the low 100s. Prior similar symptoms: Yes PFSH PFS Medical History Breast cancer GERD (gastroesophageal reflux disease) History of goiter Migraines Thyroid disease Home Medications calcium carbonate-vitamin D3 1 ea PO DAILY 03/10/17 [History Last Taken 05/17/20] multivitamin with folic acid 1 tab PO DAILY 03/10/17 [History Last Taken 05/17/20] lorazepam 0.5 mg PO DAILY PRN PRN 12/26/20 [History Last Taken Unknown] melatonin 5 mg PO PRN PRN 12/26/20 [History Last Taken Unknown] pantoprazole 40 mg PO DAILY 12/26/20 [History Last Taken 12/31/20 10:00] promethazine 25 mg PO PRN PRN 12/26/20 [History Last Taken Unknown] potassium chloride 10 meq PO DAILY 10/10/21 [History Last Taken Unknown] codeine 10 mg-guaifenesin 100 mg/5 mL Syrup 5 ml PO Q6H PRN 01/27/22 [History Last Taken Unknown] metoprolol tartrate 25 mg tablet 25 mg PO DAILY 01/27/22 [History Last Taken Unknown] olaparib 150 mg tablet 300 mg PO BID tab 01/27/22 [History Last Taken Unknown] doxycycline monohydrate 100 mg PO BID #28 tab 02/07/22 [Rx Last Taken Unknown] ondansetron HCl [Zofran] 4 mg PO Q6H PRN 02/07/22 [History Last Taken Unknown] oseltamivir [Tamiflu] 75 mg PO BID 5 Days #10 cap 02/07/22 [Rx Last Taken Unknown] Allergy/AdvReac Type Severity Reaction Status Date / Time No Known Allergies Allergy Verified 02/07/22 14:42 Family History Father Melanoma Leukemia Sister Breast cancer Mother Congenital heart defect Surgical History H/O left mastectomy History of lobectomy of lung S/P partial thyroidectomy Social History household members: spouse housing: house Smoking Status: Never smoker alcohol intake: current alcohol intake frequency: a few times a week Alcohol type: wine substance use type: does not use ROS ROS ED Constitutional Constitutional ED: Reports fever(s); Denies chills or sweats Eyes Eyes: Denies change in vision ENT ENT ED: Denies dysphagia or sore throat Cardiovascular Cardiovascular: Denies chest pain, leg edema, palpitations or racing heartbeat Respiratory/Chest Respiratory/Chest: Reports cough; Denies dyspnea or dyspnea on exertion Gastrointestinal Gastrointestinal: Denies abdominal pain, diarrhea, nausea or vomiting Genitourinary Genitourinary ED: Denies dysuria, hematuria or urinary frequency Musculoskeletal Musculoskeletal: Denies back pain, extremity pain or neck pain Integumentary Denies rash or wounds Neurologic Neurologic: Denies headache(s), paresthesias or weakness EXAM Physical Exam Const Vital Signs: 02/07/22 14:42 02/07/22 15:26 02/07/22 15:58 Temperature 97.3 F L 98.0 F Temperature Source Oral Temporal Pulse Rate 124 H 113 H 111 H Respiratory Rate 18 15 22 H Respiratory Effort Normal Non-Labored Respiratory Pattern Normal Blood Pressure 128/79 H 115/77 116/78 Blood Pressure Mean 95 89 90 Pulse Ox 96 98 98 Oxygen Delivery Method Room Air Room Air Room Air 02/07/22 17:09 02/07/22 18:01 Temperature Temperature Source Pulse Rate 114 H 119 H Respiratory Rate 18 Respiratory Effort Respiratory Pattern Blood Pressure 110/75 Blood Pressure Mean Pulse Ox 98 96 Oxygen Delivery Method Positive well nourished and well developed General Appearance ED: well developed and NAD HEENT Reports moist mucous membranes and dry mucous membranes normocephalic and atraumatic Mouth ED: Yes dry mucous membranes Mouth: dry mucous membranes Eyes PERRL, EOMs intact bilaterally and conjunctivae normal General Eye ED: Yes normal appearance of both eyes Neck no lymphadenopathy and supple General: Negative for tenderness Chest Wall Chest: Negative for tenderness Resp normal respiratory effort and normal air movement Effort and Inspection: symmetric chest movement; Negative for respiratory distress Cardio regular rate, regular rhythm and no murmurs Rate: tachycardic Peripheral Pulses: pulses 2+ throughout GI normal to inspection, nondistended, normoactive bowel sounds and non-tender Palpation: Negative for guarding or rebound tenderness present Back/Spine no CVA tenderness and no thoracic nor lumbar tenderness Extremity normal to inspection General Extremety ED: Negative for edema or tenderness General Extremity: Negative for edema Neuro oriented x3 and no sensory deficits noted Sensorium / Orientation: awake and alert Skin no rashes or lesions noted and no wounds MDM MDM MDM Narrative Medical decision making narrative: Patient afebrile on arrival was tachycardic. Pulse ox 96 to 98%. New symptoms cough since today. Fever since yesterday. Neutropenic labs were ordered. White count 4.3. Covid negative. Chest x-ray 1 view reviewed by myself and read by radiology stable right lower lobe opacity compared to September. Respiratory panel is pending. Urine negative. Blood and urine cultures are in the lab. Lactic acid normal at 1. She was given IV fluids, remained afebrile however states just feels whipped. Patient not hypoxic. Reviewing of her records in September she had the RSV and MSSA went home on 14 days of doxycycline. Heart rate down to 110s she is on metoprolol with chronic elevated heart rate. Reevaluation patient she states she would rather go home and follow-up. I discussed with Dr. Tong who knows the patient well discuss her history and findings. Agrees with starting doxycycline with her MSSA history pending her respiratory panel. States that would be followed up and discussed with her if positive. Return precautions discussed. Patient and spouse understands and agrees with current plan. All questions were answered. First dose of doxycycline given in the ED with 14-day prescription. Addendum: Shortly after discharge, respiratory panel returned influenza A+. Patient immunocompromised day 2 of symptoms. She is contact by nursing, I did send in Tamiflu for 5 days to her pharmacy. Lab Data Attestation: I reviewed the patient's lab results. Labs: Laboratory Results - last 24 hr 02/07/22 02/07/22 02/07/22 15:00 15:28 15:28 WBC 4.3 L RBC 3.73 L Hgb 10.7 L Hct 32.7 L MCV 87.7 MCH 28.7 MCHC 32.7 RDW Std Deviation 50.2 H RDW Coeff of [place] 15.6 H Plt Count 215 MPV 8.5 Immature Gran % (Auto) 0.500 Neut % (Auto) 83.7 H Lymph % (Auto) 2.6 L [place] % (Auto) 12.2 H Eos % (Auto) 0.5 Baso % (Auto) 0.5 Absolute Neuts (auto) 3.6 Absolute Lymphs (auto) 0.11 L Nucleated RBC % 0 Differential Comment SCANNED Diff Path Review May foll Sodium 134 L Potassium 3.9 Chloride 101 Carbon Dioxide 29.0 Anion Gap 4 L BUN 14 Creatinine 0.64 Estim Creat Clear Calc 67.98 Est GFR (MDRD) Af Amer 122 Est GFR (MDRD) Non-Af 101 BUN/Creatinine Ratio 21.9 H Glucose 115 H Lactic Acid Calcium 9.3 Total Bilirubin 0.30 AST 28 ALT 37 Alkaline Phosphatase 188 H Total Protein 6.5 Albumin 3.3 Globulin 3.2 Albumin/Globulin Ratio 1.0 Urine Color Yellow Urine Clarity Clear Urine pH 8.0 Ur Specific [place] 1.015 Urine Protein Negative Urine Glucose (UA) Normal Urine Ketones Negative Urine Occult Blood Negative Urine Nitrite Negative Urine Bilirubin Negative Urine Urobilinogen Normal Ur Leukocyte Esterase Negative Urine RBC 0 SEEN Urine WBC 0 SEEN Ur Squamous Epith Cells 0-5 SEEN Urine Bacteria 0 SEEN Urine Mucus 0 SEEN 02/07/22 15:28 WBC RBC Hgb Hct MCV MCH MCHC RDW Std Deviation RDW Coeff of [place] Plt Count MPV Immature Gran % (Auto) Neut % (Auto) Lymph % (Auto) [place] % (Auto) Eos % (Auto) Baso % (Auto) Absolute Neuts (auto) Absolute Lymphs (auto) Nucleated RBC % Differential Comment Diff Path Review Sodium Potassium Chloride Carbon Dioxide Anion Gap BUN Creatinine Estim Creat Clear Calc Est GFR (MDRD) Af Amer Est GFR (MDRD) Non-Af BUN/Creatinine Ratio Glucose Lactic Acid 1.0 Calcium Total Bilirubin AST ALT Alkaline Phosphatase Total Protein Albumin Globulin Albumin/Globulin Ratio Urine Color Urine Clarity Urine pH Ur Specific [place] Urine Protein Urine Glucose (UA) Urine Ketones Urine Occult Blood Urine Nitrite Urine Bilirubin Urine Urobilinogen Ur Leukocyte Esterase Urine RBC Urine WBC Ur Squamous Epith Cells Urine Bacteria Urine Mucus Radiography Chest X-Ray - ED: 1 View, Read by ED Physician and Read by Radiologist Diagnostic Testing: Clinical Impression(s) from Imaging Studies Chest X-Ray 02/07/22 15:35 IMPRESSION: Stable chest. Stable opacification of the right lower lobe. Electronically Signed: Suzy Muniz MD at 15:50 EDT , EKG Initial EKG: Attestation: I personally reviewed and interpreted this EKG as follows: Comments: Sinus rate of 110, no ST or T wave changes. Discharge Plan Triage Chief Complaint: Fever ED Provider: Hakan Avendano Dx/Rx/DC Orders Clinical Impression: Fever, Metastatic breast cancer, MSSA (methicillin susceptible Staphylococcus aureus), Bronchitis, Influenza A Instructions: ED Upper Resp Infec Abx Tx, ED FUO Adult Prescriptions: New doxycycline monohydrate 100 mg tablet 100 mg PO BID Qty: 28 RF: 0 oseltamivir [Tamiflu] 75 mg capsule 75 mg PO BID 5 Days Qty: 10 RF: 0 No Action codeine-guaifenesin 10-100 mg/5 mL syrup 5 ml PO Q6H PRN (Reason: Cough) RF: 0 metoprolol tartrate 25 mg tablet 25 mg PO DAILY RF: 0 Lynparza 150 mg tablet 300 mg PO BID RF: 0 calcium carbonate-vitamin D3 1 EACH tablet 1 ea PO DAILY RF: 0 multivitamin with folic acid 1 TABLET tablet 1 tab PO DAILY RF: 0 pantoprazole 20 MG tablet 40 mg PO DAILY RF: 0 lorazepam 0.5 MG tablet 0.5 mg PO DAILY PRN PRN (Reason: Anxiety) RF: 0 promethazine 25 MG tablet 25 mg PO PRN PRN (Reason: Nausea) RF: 0 melatonin 5 MG capsule 5 mg PO PRN PRN (Reason: Sleep) RF: 0 potassium chloride 10 mEq tablet,ER particles/crystals 10 meq PO DAILY RF: 0 ondansetron HCl [Zofran] 4 mg Tablet 4 mg PO Q6H PRN (Reason: Nausea) RF: 0 Primary Care Provider: Cathy Tom Referrals: Cathy Tom MD [Primary Care Provider] - Shaji Almonte DO [STAFF PHYSICIAN] - 2 Days Activity Restrictions/Additional Instructions: Respiratory panel is pending. Covid negative. White blood cell count 4.2. Chest x-ray stable opacity right lower lobe. Blood cultures are pending. History of MSSA back in September. Discussed with Dr. Tong, start doxycycline for up to 14 days. Return if any worsening symptoms otherwise follow-up with Dr. Almonte. Disposition Disposition: Home, Self Care Discharge Date/Time: 02/07/22 18:31
[2022-02-07 15:26] VITALS: BP 115/77; PULSE 113; RESP 15; O2SAT 98
--- NOTE | 2022-02-07 15:35 | RAD_ITS ---
STUDY: X-RAY CHEST REASON FOR EXAM: Female, 61 years old. Cough TECHNIQUE: Single AP portable view x2 of the chest. COMPARISON: October 10, 2021 chest x-ray FINDINGS: There is a persistent right-sided Port-A-Cath. There is volume loss in the right chest right lower lobe opacity shift of the heart towards the right. There are old left rib fractures. There is postoperative change in the left axilla. There are partially visualized age indeterminant right lower rib fractures. Similar to prior study. Normal size heart. Normal mediastinum and don. Normal visualized pulmonary arteries. Normal visualized aortic arch and descending thoracic aorta. There are diffuse degenerative changes of the visualized thoracic spine. There is no demonstrated abnormality of the visualized soft tissue structures of the upper abdomen. RAD/Chest 1 View (Portable) IMPRESSION: Stable chest. Stable opacification of the right lower lobe. Electronically Signed: Suzy Muniz MD at 15:50 EDT ,
[2022-02-07 15:49] LABS: Absolute Lymphocyte Count 0.11 X10^3/uL (0.83-4.51); Absolute Neutrophil Count 3.6 X10^3/uL (2.0-7.7); Basophil# 0.02 X10^3/uL; Basophil% 0.5 % (0-1); Eosinophil# 0.02 X10^3/uL; Eosinophils% 0.5 % (0-5); Hematocrit 32.7 % (37-47); Hemoglobin 10.7 g/dL (12.0-15.0); Lymphocyte # 0.11 X10^3/ul (0.83-4.51); Lymphocyte % 2.6 % (19-41); Mean Corp Hgb Conc 32.7 g/dL (32-36); Mean Corpuscular Hgb 28.7 pg (27.0-32.0); Mean Corpuscular Volume 87.7 fL (81-99); Mean Platelet Vol. 8.5 fl (6.2-12.0); Monocyte# 0.52 X10^3/uL; Monocyte% 12.2 % (0-10); NRBC Flagged by Analyzer 0 % (0-5); Neutrophil # 3.57 X10^3/uL (2.7-7.7); Neutrophil % 83.7 % (47-70); POSITIVE DIFFERENTIAL YES; Platelet Count 215 K/mm3 (150-450); RBC Distribution Width CV 15.6 % (11.6-14.6); RBC Distribution Width SD 50.2 fl (35.1-43.9); Red Blood Count 3.73 M/mm3 (4.2-5.4); White Blood Count 4.3 K/mm3 (4.4-11.0)
[2022-02-07 15:52] LABS: Differential Indicated SCAN CRITERIA MET
[2022-02-07] MEDS: 0.9% Normal Saline 1,000 ML 999 ML IV (15:53)
[2022-02-07 15:58] VITALS: BP 116/78; PULSE 111; RESP 22; TEMP 36.7; O2SAT 98
[2022-02-07 16:04] LABS: AST(SGOT) 28 U/L (15-37); Alanine Aminotransfer ALT/SGPT 37 U/L (13-56); Albumin, Serum 3.3 g/dL (3.2-5.0); Alkaline Phosphatase 188 U/L (45-117); Anion Gap 4 (5-15); BUN 14 mg/dL (7-18); BUN/Creat Ratio 21.9 RATIO (10-20); Calcium,Total 9.3 mg/dL (8.5-10.1); Chloride 101 mmol/L (98-107); Creatinine, Serum 0.64 mg/dL (0.55-1.02); EST Glomerular Filtration Rate 101 mL/min (>60); Est Glom Filt Rate - Afr Amer 122 mL/min (>60); Estimated Creatinine Clearance 67.98 ml/min; Globulin 3.2 g/dL (2.2-4.2); Glucose 115 mg/dL (74-106); Potassium 3.9 mmol/L (3.5-5.1); Protein, Total 6.5 g/dL (6.4-8.2); Sodium Level 134 mmol/L (136-145)
[2022-02-07 16:25] LABS: Differential Comment SCANNED
[2022-02-07 17:09] VITALS: PULSE 114; O2SAT 98
[2022-02-07 17:11] LABS: Bacteria 0 SEEN /hpf (None Seen); Mucous, Urine 0 SEEN /hpf (<or=2+); Red Blood Cells-Urine 0 SEEN /hpf (0-5); White Blood Cells 0 SEEN /hpf (0-5)
[2022-02-07 17:20] LABS: Color, Urine Yellow (Yellow); Glucose, Dipstick Normal (Normal); Ketone-Dipstick Negative (Negative); Leukocyte Esterase-Dipstick Negative /ul (Negative); Nitrite-Dipstick Negative (Negative); Occult Blood-Urine Negative /ul (Negative); Protein-Dipstick Negative (Negative); Specific Gravity, Urine 1.015 (1.002-1.030); Urine Bilirubin Dipstick Negative (Negative); Urine Clarity Clear (Clear); Urine Urobilinogen Normal (Normal)
[2022-02-07 17:26] LABS: Squamous Epithelial Cells - UA 0-5 SEEN /hpf (5-10)
[2022-02-07 18:01] VITALS: BP 110/75; PULSE 119; RESP 18; O2SAT 96
[2022-02-07] MEDS: Doxycycline 100 MG CAPSULE PO (18:03)
--- NOTE | 2022-02-07 18:43 | ED.RN ---
THIS RN SPOKE DIRECTLY WITH PATIENT TO TELL HER SHE WAS POSITIVE FOR FLU A. 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
[2022-02-09 14:39] LABS: Pathologist Review Reviewed
== END 2022-02-07 18:31 | disposition home or self-care (01) ==
PROVIDERS: Emergency Provider Emergency Medicine; PCP Internal Medicine; Visit Provider Emergency Medicine
DX: J10.1 Influenza due to other identified influenza virus with other respiratory manifestations (principal); J40 Bronchitis, not specified as acute or chronic; K21.9 Gastro-esophageal reflux disease without esophagitis; R00.0 Tachycardia, unspecified; Z90.12 Acquired absence of left breast and nipple; Z79.899 Other long term (current) drug therapy; Z85.3 Personal history of malignant neoplasm of breast; Z86.14 Personal history of Methicillin resistant Staphylococcus aureus infection; Z87.01 Personal history of pneumonia (recurrent); Z87.09 Personal history of other diseases of the respiratory system
CPT/HCPCS: 71045; 80053; 81001; 83605; 85025; 87040; 87086; 87633; 87811; 93005; 96360; 96361; 99285; J7030; A4216

== ENCOUNTER 2022-02-25 15:52 | Outpatient (CLI) | payer OTHER, SELFPAY ==
--- NOTE | 2022-02-25 16:01 | RAD_ITS ---
STUDY: X-RAY - RIGHT SHOULDER REASON FOR EXAM: Female, 61 years old. Right shoulder pain TECHNIQUE: 4 view(s) of the shoulder. COMPARISON: Chest x-ray 02/07/2022. FINDINGS: BONES: No fracture demonstrated. Degenerative changes at the acromioclavicular joint. Multiple old right rib fractures. JOINTS: No dislocation. SOFT TISSUES: Unremarkable. Indwelling central venous catheter with port overlying the right chest wall unchanged compared to prior chest x-ray. RAD/Shoulder min 2 Views IMPRESSION: No evidence of fracture. Degenerative changes at the AC joint. Old right rib fractures. Electronically Signed: Cammie Greenwood MD at 5:20 EDT ,
== END 2022-02-25 23:59 | disposition home or self-care (01) ==
LOC: MTRAD 15:53
PROVIDERS: PCP Internal Medicine; Referring Provider Internal Medicine; Visit Provider Internal Medicine
DX: M19.011 Primary osteoarthritis, right shoulder (principal)
CPT/HCPCS: 73030

== ENCOUNTER → 2022-04-10 | Outpatient (CLI) | payer OTHER, SELFPAY ==
--- NOTE | 2022-04-10 09:46 | RAD_ITS ---
STUDY: X-RAY - RIGHT ELBOW REASON FOR EXAM: Female, 61 years old. Pain. TECHNIQUE: 3 view(s) of the elbow. COMPARISON: None. FINDINGS: Normal visualized humerus, radius and ulna. Normal radiocapitellar and ulnotrochlear articulations. The soft tissue structures are unremarkable. RAD/Elbow min 3 Views IMPRESSION: Normal x-ray examination of the elbow. Electronically Signed: Thiago Nunez MD at 11:37 EDT ,
== END | disposition home or self-care (01) ==
LOC: MTLAB 09:46 → MTRAD 09:47
PROVIDERS: PCP Internal Medicine
DX: M25.521 Pain in right elbow (principal)
CPT/HCPCS: 73080

== ENCOUNTER 2022-04-21 09:30 | Outpatient (RCR) | payer OTHER, SELFPAY ==
--- NOTE | 2022-03-10 10:51 | HP.PTEVAL ---
Patient's Visit Information ERICK TELLO is a 61 year old F referred to Physical Therapy by AMELIA Langley with a diagnosis of Right Shoulder Impingement. Date of Evaluation: 03/10/22 Physical Therapist: Linda Doherty DPT - Visit Plan Frequency: 2x /Week Duration: 4 Weeks Plan: Focus on scapular stabilization- decrease radicular s/s- no US/TENS due to active cancer dx. HEP Given IE: Postural education, upper trap stretch, scapular retractions, wall wash into flexion - Subjective Right shoulder pain for about 7 weeks- she has metastatic breast cancer- right before radiation- she has had this on/off for a few years. She has always pushed through it and its not getting better. She has been going through treatment on/off for 5 years- its in her left hip and right arm at this time. She went to [facility]- she had x-rays taken- no MRI at this time. PA thinks its bursitis. She wants to delay injection. Metastatic cancer is in the right humerus. She is currently taking a Lymparza which is effects the cancer cell replication. Is not currently in radiation. The pain in the right shoulder comes and goes. The worst time is 4-5 in the morning. She is a side sleeper and sleeps on the left. Describes the pain as usually sharp/shooting if she moves wrong. Just lets her know its there. Pain is located in the anterior shoulder and the top and radiates to the elbow with no neck symptoms. No N/T in the hand but does notice decreased ability to open a jar. Worst: 3/10 Agg: doing something incorrectly- very cautious with it. Eases: Ibuprofen, heating pad, Biofreeze Best: 0/10. No blurred vision, dizziness or SOUZA. Right hand dominate. 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 Does try to walk in the neighborhood- no weight training or exercise. Does feel that she has lost a lot of strength. Does have an e-bike that she does use to be outdoors with her . PMHx/Meds: current in chart from orthopaedics - Objective Posture: FH, RS- can correct with verbal cues but is unable to maintain. Gait: no deviation noted- good arm swing and trunk rotation. Palpation: tender along medial border of the scapula, upper trap, cervical paraspinals on the right, AC joint, bicipital groove. ROM: Flexion: 160 degrees, Abd: 165 degrees, IR: belt line, ER: 50 degrees- pain at end ranges, Elbow/Wrist/Hand: WFL Cervical: WFL tightness with SB bilateral. Strength: scap: poor, Shoulder: 4-/5 throughout, Elbow: 4+/5, Wrist: 4+/5, Internet Specialist: 40 lbs. Sensation: WNL - Special Tests R Shoulder Empty Can - SS: Positive R Shoulder Belly Press - SupScap: Positive R Shoulder Neer - Impingement: Positive R Shoulder Armstrong Theodore - Impingement: Positive - Balance/Special Test Scores Quick DASH Score: 27.2725 - Goals Goal 1:: Patient will be I with HEP and progression Goal Time Frame: 4-6 Weeks Goal 2:: Patient will demo full AROM of the right shoulder Goal Time Frame: 4-6 Weeks Goal 3:: Patient will maintain proper posture t/o tx session to demo increased scap s/s Goal Time Frame: 4-6 Weeks Goal 4:: Patient will report 80% improvement Goal Time Frame: 4-6 Weeks - Rehabilitation Potential Physical Therapy Diagnosis: Patient presents with hypomobility- she has decreased pain free ROM, UE and scapular s/s and muscular endurance leading to poor posture and increased pain with ADL's. Rehabilitation Potential: Good - Anticipated Interventions Patient/Client Instruction: Educate patient on: Benefits of Fitness Program Therapeutic Exercise to Include: Strength training, Endurance training, Body mechanics, Postural training, Flexibilty training, Dynamic Lumbar Stabilization, Scapular Strength/Stabilization For the Purpose of:: To improve muscle performance and motor function TENS: No Cryotherapy (ice pack, ice massage): Yes Thermo therapy (hot pack): Yes Ultrasound (thermal/non thermal): No Thank you for the opportunity to evaluate your patient. For Medicare and Medicare HMO plans, please review the plan of care and approve it. It will need to be FAXED BACK to us at [phone] for Medicare purposes. For Medicare only, by signing this I certify the plan of care. Please let me know if there are questions or concerns regarding this plan of care. Physician Signature: Date:
--- NOTE | 2022-08-26 08:28 | HP.PT.NRP ---
ERICK TELLO was seen in my office for initial evaluation on 03/10/22. The following Plan of Care was established for this patient: Initial Frequency: 2x /Week Initial Duration: 4 Weeks Patient/Client Instruction: Educate patient on: Benefits of Fitness Program Therapeutic Exercise to Include: Strength training, Endurance training, Body mechanics, Postural training, Flexibilty training, Dynamic Lumbar Stabilization, Scapular Strength/Stabilization For the Purpose of:: To improve muscle performance and motor function TENS: No Cryotherapy (ice pack, ice massage): Yes Thermo therapy (hot pack): Yes Ultrasound (thermal/non thermal): No This patient was last seen in our office . Pertinent comments regarding their Physical therapy will appear below: Patient has not attened PT in over 30 days and is appropriate to be d/c. At this point I will be discontinuing this patient from physical therapy. I would be happy to see this patient again in the future if found appropriate by the physician. Thank you! Linda Doherty, KRISHANT Balance/Gait/Functional tests - Balance/Special Test Scores Quick DASH Score: [phone]
== END 2022-04-21 19:00 | disposition home or self-care (01) ==
LOC: PT 09:30
PROVIDERS: PCP Internal Medicine
DX: M75.41 Impingement syndrome of right shoulder (principal)
CPT/HCPCS: 97110; 97162; 97530

== ENCOUNTER → 2022-05-06 | Outpatient (CLI) | payer OTHER, SELFPAY ==
--- NOTE | 2022-05-06 16:45 | PET_ITS ---
PROCEDURE: WHOLE BODY PET/CT SCAN, MID SKULL TO MID THIGH REASON FOR EXAM: Non-small cell lung cancer with squamous features in the right lower lobe, restaging COMPARISON EXAMINATION: 12/24/2021. TECHNIQUE: Following the intravenous administration of 12.3 mCi of F-18 FDG, multiplanar imaging acquisitions of the neck, chest, abdomen/pelvis to the mid thigh, obtained at 1 hour post radiopharmaceutical administration. Interpretation is with co-registeration of similar anatomic distribution of CT. Findings: Normal and physiologic distribution of radioisotope identified in the expected intensity of the hepatic and splenic parenchyma, urinary tract and gastrointestinal structures. There is gross anatomic distribution of the intracranial contents. INDEX LESION SIZE SUV INTERPRETATION: 1. Redemonstration of increased isotope activity involving the right lower lung with SUV measuring up to 2.3, not substantially changed. 2. New noncalcified pulmonary nodules involving the left more than right lung, particularly the left lower lobe. For instance, 1.2 cm noncalcified nodule in the upper portion of the left lower lobe on image 75 of series 202 with abnormal FDG activity (SUV 3.8). Several other nodules are below size limitations of PET scan. 3. Persistent ringlike activity of the posterior left posterior ilium with SUV measuring up to 5.8 (previously measured 14.2). Activity in the mid right humerus is also redemonstrated with SUV measuring up to 5.6 (previously measured 17.8). There is new activity of the left side of the sacrum (image 198 series 301) with SUV measuring up to 9.4. Focal activity of the left lesser trochanter on image 242 of series 301 is redemonstrated with FDG activity measuring up to 4.2 (previously measured 6.0). Increased activity surrounding the proximal humerus/humeral head with associated fluid extending along the humeral shaft (image 77 series 202) with SUV measuring up to 10.2. 4. CT portion of the exam: Right lower lobectomy. Right chest port is stable. Left mastectomy with surgical clips in the left axilla. Left thyroidectomy. Small right chronic pleural fluid redemonstrated, not substantially changed. Normal heart and pericardium. No mediastinal adenopathy. No demonstrated hilar adenopathy. Normal unenhanced pulmonary arteries. There is atherosclerotic calcification of the aortic arch with tortuosity and elongation of the aortic arch and descending thoracic aorta. Normal liver. Normal gallbladder and extrahepatic biliary system. Normal spleen. Normal pancreas. Normal bilateral adrenal glands. Normal right kidney. Normal left kidney. Normal visualized stomach. Normal small intestine. Normal colon. There is non-visualization of the appendix. Normal abdominal aorta. Normal inferior vena cava. Normal urinary bladder. Bilateral healed rib fractures. PET/PET/CT Tumor WB Subs IMPRESSION: 1. ABNORMAL EXAMINATION. SINCE 12/24/2021, UNFAVORABLE CHANGE/DISEASE PROGRESSION. New pulmonary nodules (dominant left lower lobe) the criteria for viable neoplasm/metastasis. Persistent (left ilium, left lesser trochanter/femur, right midhumerus) and new (left side of sacrum, proximal right humerus) osseous activity meet criteria for viable neoplasm/osseous metastasis. 2. Chronic changes, as detailed above. Electronically Signed: Benji Carrasco MD ([place]) at 8:22 EDT Reading Location ID and State: / [place] , Service support ,
== END | disposition home or self-care (01) ==
LOC: ONC 16:30
PROVIDERS: PCP Internal Medicine; Referring Provider Internal Medicine Hematology & Oncology; Visit Provider Internal Medicine Hematology & Oncology
DX: C34.31 Malignant neoplasm of lower lobe, right bronchus or lung (principal)
CPT/HCPCS: 78816; A9552

== ENCOUNTER 2022-05-19 14:55 | Outpatient (CLI) | payer OTHER, SELFPAY ==
--- NOTE | 2022-05-19 14:58 | US_ITS ---
STUDY: ULTRASOUND - US Lower Extremity, limited, joint or other nonvascular extremity 05/19/2022 4:13 PM REASON FOR EXAM: Female, 61 years old. ACUTE PAIN OF R SHOULDER eval for hematomaACUTE PAIN OF R SHOULDER eval for hematoma TECHNIQUE: A superficial ultrasound was performed with real-time and static sandoval-scale imaging. COMPARISON: PET scanJun 2021 5:21pm FINDINGS: There is a hypoechoic vascular lesion measuring 6.6 x 6.6 x 2.4 cm. Is at the level of the deltoid muscle. US/Ext Non Vasc Limited/Soft Tiss IMPRESSION: Nonspecific masslike area around the area of the deltoid muscle. It is hypervascular. Given the recent PET scan findings neoplasm should be considered. Electronically Signed: Gerardo Mccarthy MD at 16:16 EDT ,
== END 2022-05-19 23:59 | disposition home or self-care (01) ==
LOC: US 14:56
PROVIDERS: PCP Internal Medicine; Referring Provider Internal Medicine Hematology & Oncology; Visit Provider Internal Medicine Hematology & Oncology
DX: M25.511 Pain in right shoulder (principal)
CPT/HCPCS: 76882

== ENCOUNTER → 2022-06-19 | Outpatient (CLI) | payer OTHER, SELFPAY ==
--- NOTE | 2022-06-19 14:53 | VDUE_ITS ---
Reason For Study: EDEMA, DVT Right Proximal Right jugular vein is spontaneous, widely patent, phasic, with no intraluminal echogenicity noted. Proximal SubclaviaN is compressible and demonstrates flow. Mid through Distal Subclavian is noncompressible with no flow demonstrated. Right Lower Arm Right radial vein is compressible. Right ulnar vein is compressible. Right Arm Axilla is noncompressible, with hyperechoic echoes and demonstrates no flow. Right brachial vein is compressible. Cephalic is compressible at wrist to proximal forearm. From antecube to shoulder cephalic is compressible. Basilic is noncompressible and demonstrates no flow. VL/Venous Duplex US, Unilateral Interpretation Summary Acute deep venous thrombosis right mid to distal subclavian vein Deep venous thrombosis right axillary vein Superficial thrombophlebitis right basilic vein and right cephalic antecubital vein Ordering Physician: Pedrito Tong Referring Physician: Cathy Tom Performed By: Sivan Arango, ARIELA, RVT ?
== END | disposition home or self-care (01) ==
LOC: CVS 14:53
PROVIDERS: PCP Internal Medicine; Referring Provider Internal Medicine Hematology & Oncology; Visit Provider Internal Medicine Hematology & Oncology
DX: I82.B11 Acute embolism and thrombosis of right subclavian vein (principal); C79.51 Secondary malignant neoplasm of bone; I82.A11 Acute embolism and thrombosis of right axillary vein; C80.1 Malignant (primary) neoplasm, unspecified; I80.8 Phlebitis and thrombophlebitis of other sites
CPT/HCPCS: 93971

== ENCOUNTER → 2022-08-01 | Outpatient (CLI) | payer OTHER, SELFPAY ==
--- NOTE | 2022-08-01 11:59 | RAD_ITS ---
STUDY: X-RAY CHEST REASON FOR EXAM: Female, 61 years old. RIGHT LUNG NEOPLASM TECHNIQUE: PA and lateral views of the chest. COMPARISON: 02/07/2022 FINDINGS: Right internal jugular chest port which is unchanged. Status post left mastectomy and axillary lymph node dissection. Interval development of innumerable pulmonary nodules consistent with metastatic disease. The largest nodules in the mid left lung and measures 4 cm in diameter. The no change in the moderate right pleural effusion. Normal size heart. Normal mediastinum and don. Normal visualized pulmonary arteries. Normal visualized aortic arch and descending thoracic aorta. Normal visualized thoracic spine. Normal visualized ribs, clavicles, and shoulders. There is no demonstrated abnormality of the visualized soft tissue structures of the upper abdomen. RAD/Chest PA and Lateral IMPRESSION: Interval development of innumerable pulmonary metastases. Electronically Signed: Etienne Gomez MD at 12:18 EDT ,
== END | disposition home or self-care (01) ==
LOC: RAD 11:49
PROVIDERS: PCP Internal Medicine; Visit Provider Internal Medicine Hematology & Oncology
DX: C78.01 Secondary malignant neoplasm of right lung (principal); Z90.12 Acquired absence of left breast and nipple
CPT/HCPCS: 71046